=== PATIENT | female | born 1990 | race Caucasian/White ===

== ENCOUNTER 2016-10-21 16:18 | Emergency (ER) | payer BC ==
[2016-10-21 17:13] VITALS: BP 128/97
--- NOTE | 2016-10-21 17:58 | UC ---
Abdominal Pain Female HPI - HPI Summary HPI Summary: LLQ intermittent crampy abdominal pain for over a year. When I look at her visit history, it apears she has had LLQ pain for 10 years with numerous work= ups, but she says this is different. It seems to be related to eating. Will cramp and have terrible pain after meals, then it gradually dissipates. LLQ is always very tender. OB worked her up for ovarian and uterine pathology, says it' s not [employer]-related, suggested GI eval. No weight loss. No blood in stool. No FH GI disorders other than a MGF who has colon polyps. No vomiting. Good appetite. abd U/S within past month was normal - History of Current Complaint Chief Complaint: UCAbdominalPain Stated Complaint: SHARP LWR ABD PAIN-LEFT SIDE Time Seen by Provider: 10/21/16 17:35 Hx Obtained From: Patient Hx Last Menstrual Period: 08/29/16 Onset/Duration: Gradual Onset, Lasting Weeks Severity Initially: Severe Severity Currently: Mild Location: Discrete At: LLQ Radiates: Yes Radiates to: Flank Character: Aching, Colicy, Cramping, Sharp Aggravating Factor(s): Food Alleviating Factor(s): Position - hands and knees feels best when pain is severe Associated Signs and Symptoms: Positive: Constipation, Diarrhea - alternating constipation and diarrhea. Negative: Fever, Chest Pain - Risk Factors Ectopic Risk Factor: Negative Ovarian Torsion Risk Factor: Negative Allergies/Adverse Reactions: Allergies Allergy/AdvReac Type Severity Reaction Status Date / Time Cortisone Allergy Severe Difficulty Verified 10/21/16 17:12 Breathing Shellfish Allergy Allergy Severe Anaphylatic Verified 10/21/16 17:12 Shock Acetaminophen [From Tylenol] Allergy Intermediate Vomiting Verified 10/21/16 17: 12 Codeine Allergy Intermediate Vomiting Verified 10/21/16 17:12 Home Medications: Home Medications Yocasta 10/21/16 [History] PMH/Surg Hx/FS Hx/Imm Hx Endocrine History Of: Denies: Diabetes, Thyroid Disease Cardiovascular History Of: Denies: Cardiac Disorders, Hypertension, Pacemaker/ICD, Congestive Heart Failure Respiratory History Of: Reports: Asthma - ALBUTEROL INHAILER Denies: COPD GI/ History Of: Denies: Gastroesophageal Reflux, Ulcer, Renal Disease - INFECTIONS Neurological History Of: Denies: CVA, Dementia, Seizures Other History Of: Negative For: Anticoagulant Therapy - Surgical History Surgical History: Yes Surgery Procedure, Year, and Place: Right hip arthoplasty Aug 2015 [facility] - Family History Known Family History: Positive: None - reviewed & noncontributory, Diabetes, Renal Disease - Social History Occupation: Employed Full-time Lives: With Family Alcohol Use: Weekly Substance Use Type: None Smoking Status (MU): Never Smoked Tobacco Have You Smoked in the Last Year: No Household Exposure Type: Cigarettes - Immunization History Most Recent Influenza Vaccination: no given Most Recent Tetanus Shot: unknown Most Recent Pneumonia Vaccination: no given Review of Systems Constitutional: Negative Skin: Negative Eyes: Negative ENT: Negative Respiratory: Negative Cardiovascular: Negative Gastrointestinal: Abdominal Pain Genitourinary: Negative Motor: Negative Neurovascular: Negative Musculoskeletal: Negative Neurological: Negative Psychological: Negative All Other Systems Reviewed And Are Negative: Yes Physical Exam Triage Information Reviewed: Yes Appearance: Well-Appearing, No Pain Distress, Well-Nourished Vital Signs: Initial Vital Signs Temp 97.9 F 10/21/16 17:04 Pulse 72 10/21/16 17:04 Resp 17 10/21/16 17:04 BP 128/97 10/21/16 17:04 Pulse Ox 100 10/21/16 17:04 Vital Signs Reviewed: Yes Eye Exam: Normal Neck exam: Normal Respiratory Exam: Normal Respiratory: Positive: Lungs clear Cardiovascular Exam: Normal Abdomen Description: Positive: Soft, CVA Tenderness (L), Other: - marked pain on palpation over pelvic brim on left. Negative: Bruit, CVA Tenderness (R), Distended, Guarding, Hernia @, Hepatomegaly, McBurney's Point Tenderness, Peritoneal Signs, Pulsatile Mass, Splenomegaly Musculoskeletal Exam: Normal Neurological Exam: Normal Psychological Exam: Normal Skin Exam: Normal Abd Pain Female Course/Dx - Course Course Of Treatment: symptoms consistent with irritable bowel syndrome. Refer to GI - Differential Dx/Diagnosis Differential Diagnosis: Bowel Obstruction, Diverticulitis, Irritable Bowel Syndrome, Ovarian Cyst, Pelvic Inflammatory Disease Provider Diagnoses: irritable bowel syndrome Discharge - Discharge Plan Condition: Stable Disposition: HOME Prescriptions: Dicyclomine CAP* [Bentyl CAP*] 10 mg PO AC PRN #60 cap PRN Reason: abdominal pain Patient Education Materials: Irritable Bowel Syndrome (ED) Referrals: Jax Stacy MD [Medical Doctor] - Marion Brown NP [Primary Care Provider] - Additional Instructions: Call Dr. Stacy (GI) for an appointment. In the meantime, keep a symptom diary and try taking Bentyl. This medication is designed to stop smooth muscle spasm, which is usually behind the pain of irritable bowel syndrome. You may want to experiment with cutting certain things out of your diet to see if it helps you pain. Dairy is a common offender, as is gluten.
== END 2016-10-21 18:14 | disposition home or self-care (01) ==
LOC: UCEAST 16:18
DX: K58.9 Irritable bowel syndrome, unspecified (principal); Z88.8 Allergy status to other drugs, medicaments and biological substances
CPT/HCPCS: 99212; G0463

== ENCOUNTER 2017-01-16 05:10 | Emergency (ER) | payer BC ==
[2017-01-16 05:19] VITALS: BP 116/71
--- NOTE | 2017-01-16 07:17 | RAD ---
INDICATION: Left wrist injury. TECHNIQUE: 3 views of the left wrist were obtained. FINDINGS: The bones are in normal alignment. No fracture is seen. Joint spaces appear maintained. IMPRESSION: NO EVIDENCE FOR FRACTURE.
--- NOTE | 2017-01-16 07:18 | RAD ---
INDICATION: Left hand injury. TECHNIQUE: 2 views of the left hand were obtained. FINDINGS: The bones are in normal alignment. No fracture is seen. Joint spaces appear maintained. IMPRESSION: NO EVIDENCE FOR FRACTURE.
--- NOTE | 2017-01-16 07:19 | RAD ---
INDICATION: Left ankle injury. TECHNIQUE: 3 views of the left ankle were obtained. FINDINGS: The bones are in normal alignment. No fracture is seen. Joint spaces appear maintained. IMPRESSION: NO EVIDENCE FOR FRACTURE.
--- NOTE | 2017-01-16 07:21 | RAD ---
INDICATION: Left foot injury. TECHNIQUE: 3 views of the left foot were obtained. FINDINGS: The bones are in normal alignment. No fracture is seen. Joint spaces appear maintained. IMPRESSION: NO EVIDENCE FOR FRACTURE.
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
== END 2017-01-16 09:30 | disposition home or self-care (01) ==
LOC: ED 05:10
DX: S63.615A Unspecified sprain of left ring finger, initial encounter (principal); S63.613A Unspecified sprain of left middle finger, initial encounter; S93.402A Sprain of unspecified ligament of left ankle, initial encounter; S80.212A Abrasion, left knee, initial encounter; Z88.5 Allergy status to narcotic agent; J45.909 Unspecified asthma, uncomplicated; Y04.0XXA Assault by unarmed brawl or fight, initial encounter; X58.XXXA Exposure to other specified factors, initial encounter; Y92.9 Unspecified place or not applicable
CPT/HCPCS: 99281

== ENCOUNTER 2017-12-12 18:31 | Emergency (ER) | payer BC ==
--- OUTSIDE RECORDS SUMMARY | 2017-12-12 18:51 | XMS REPORT ---
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 Alexis Chan MD Primary Care Physician Unavailable Payers Type Date Identification Numbers Payment Provider Subscriber Commercial Policy Number: [id number] [facility] Chrisus Steffany Banks PayID: [id number] [address] [address] [place] [address] Problems Date Description Provider Status Onset: 11/25/2017 Allergy to seafood Yumi Trejo NP Active Onset: 11/25/2017 Allergic rhinitis due to pollen Yumi Trejo NP Active Onset: 11/25/2017 Allergic rhinitis Yumi Trejo NP Active Onset: 11/25/2017 Exercise-induced asthma Yumi Trejo NP Active Social History Description No Information Available Allergies, Adverse Reactions, Alerts Date Description Reaction Status Severity Comments 11/25/2017 Acetaminophen active 11/25/2017 Diphenhydramine active IV, too fast of a push causes pt to pass out 11/25/2017 Codeine active Medications Medication Date Status Form Strength Qnty SIG Indications Ordering Provider Zyrtec 11/25/ Active Tablets 10mg 30tabs one tablet J30.1 Y[facility] 2018 by mouth Neil, every day [employer]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 Vital Signs Date Vital Result Comment 12/09/2017 BP Systolic 118 mmHg BP Diastolic 62 mmHg Heart Rate 99 /min Body Temperature 95.4 F O2 % BldC Oximetry 99 % 11/25/2017 BP Systolic 110 mmHg BP Diastolic 68 mmHg Weight 129.00 lb Heart Rate 88 /min O2 % BldC Oximetry 98 % Results Description No Information Procedures Date CPT Code Description Status 11/25/2017 37041 Allergy Tests Percutaneous W/ Allergenic Extracts Completed Encounters Type Date Location Provider CPT E/M Dx Office Visit 11/25/2017 8:30[place] [address] Z91.013 J45.990 J30.89 J30.1 Z91.018 Plan of Care 11/25/2017 - Yumi Trejo NPZ91.013 Allergy to seafoodComments:I will test for allergy to shellfish, and patient will avoid at this time. Patient has epi pen.J45.990 Exercise induced bronchospasmComments:Stable without any symptoms, not using any inhalers.J30.89 Other allergic rhinitisComments:I will test S+E, will prescription Flonase and zyrtec for symptomatic allergic rhinitis.J30.1 Allergic rhinitis due to pollenNew Medication:Zyrtec Allergy 10 mgFlonase Allergy Relief 50 mcg/ActZ91.018 Allergy to other foods
--- OUTSIDE RECORDS SUMMARY | 2017-12-12 18:51 | XMS REPORT ---
:1990 External Reference #:[id number] Author Organization [facility] Address [address] [place] [address] Phone [phone] Care Team Providers Name Role Phone SANTIAGO Harrell III Care Team Information Maintenance Supervisor Electrical Unavailable Payers Type Date Identification Numbers Payment Provider Subscriber Commercial Policy Number: [id number] Gali GOMEZ Steffany French Group Name: BC/BS of [facility] [address] [address] PayID: [id number] BENNIE Card [id number] Advance Directives Type Date Description Status Comment Other Directive 05/26/2014 Health Care Proxy Current and Verified Problems Description No Information Family History Date Family Member(s) Problem(s) Comments Father Kidney Stones Mother Migraines Social History Type Date Description Comments Education Hightest level completed, 1 completed a couple year of college semesters at [employer] Marital Status Single Lives With Roommate Diet Average daily caloric intake is adequate Diet Adequate intake of fruits Diet Adequate intake of protein Diet Adequate intake of vegetables Sleep Reports difficulty falling asleep Sleep Typically sleeps 8 hours a night 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 [employer] Cigarette Use Never Smoked Cigarettes ETOH Use Occasionally consumes wine Recreational Drug Use Denies Drug Use Smoking Patient has never smoked Daily Caffeine Consumes on average 1 cup of coffee per day Enjoy Exercising Enjoys exercising Exercise Type/Frequency Running Exercise Type/Frequency occasional weights Currently Active Patient is currently sexually active Contraceptive Methods Current methods include ring (Nuva) Allergies, Adverse Reactions, Alerts Date Description Reaction Status Severity Comments 05/29/2014 Seafood Anaphylaxis active 05/29/2014 Acetaminophen Nausea and Vomiting active 05/29/2014 Codeine Nausea and Vomiting active 06/07/2017 Cortisone active 12/05/2017 Dust Mites active Medications Medication Date Status Form Strength Qnty SIG Indications Ordering Provider Azithromycin 12/12 Active Tablets 250mg 6tabs take 2 J18.9 tablets by [place] mouth one MD time then take one daily for 4 days Benzonatate 12/07 Active Capsules 100mg 45cap 1 tab by s mouth three [place] times a day , Albuterol HFA 12/05 Active 90mcg/Inh 2 puffs every 4 [place] hours as , needed Ventolin HFA 12/05 Active Aerosol 108(90Bas 8gm 1-2 puffs e) four times [place] mcg/Act a day as , needed Zyrtec Allergy 09/13 Active Capsules 10mg 30cap 1 cap once s daily for Darryl allergies III, [facility] Cefuroxime 09/04 Active Tablets 500mg 20tab one by Ilda Axetil s mouth twice Serena, a day M.D., R.D. Astepro 09/04 Active Solution 0.15% 30uni spray 2 ts sprays into [facility], each M.D., nostril one R.D. time daily Sertraline HCL 08/16 Active Tablets 25mg 30tab 1 by mouth F41.9 Javed s every day Darryl III, [employer] Buspirone HCL 08/16 Active Tablets 7.5mg 60tab take one F41.9 Javed s tablet by [place] mouth twice III, a day for [employer] anxiety Ibuprofen 03/23 Active Tablets 600mg 120ta take one M54.9 bs tablet by Stephanie, mouth 4 [employer] times daily with food as needed for pain Lidoderm 09/27 Active Patches 5% 30uni apply to 733.6 ts affected [facility] for 12 M.D. 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 12/05 Augmentin 08/30 Hx Tablets 875-125mg 14tab 1 tab by J01.90 [place]cepc[place] /2017 s mouth twice Shortle, - a day for 7 MALE IMPERSONATOR Sertraline HCL 07/19 Hx Tablets 50mg 30tab 1 by mouth F41.9 Javed s every day [place] - III, 08/16 [facility] Sertraline HCL 07/05 Hx Tablets 25mg 14tab 1 by mouth F41.9 Javed s every day Darryl - III, 07/19 [facility] Escitalopram 06/07 Hx Tablets 10mg 30tab 1 by mouth F41.9 Javed Oxalate s every day Darryl - III, 07/05 [facility] Protonix 06/[address] 20mg 30tab 1 by mouth Marion /2015 s every day Stephanie, - [facility] 05/08 Cyclobenzaprine 03/23 Hx Tablets 5mg 30tab 1-2 by M54.9 Marion HCL s mouth three Stephanie, - times a day [facility] 05/08 for spasm, may cause drowsiness Pataday 02/22 Hx Solution 0.2% 2.500 instill one H10.13 nt ml drop in [place]. [place], - each eye [facility] 05/08 Rhinocort Aqua 02/15 Hx Suspension 32mcg/Act 1unit 1 H10.44 Fede s intranasal [place] - puff daily , 05/08 Cetirizine HCL 02/05 Hx Tablets 10mg 30tab 1 by mouth H10.44 Fede s every day [place] - , 05/08 Loperamide HCL 10/29 Hx Tablets 2mg 30tab 1 tab by A09 Fede s mouth three [place] - times a day , 05/08 as needed Prednisone 01/17 Hx Tablets 20mg 10tab take 2 tabs 726.71 s by mouth Stephanie, - every day x [employer] 03/23 Hydrocodone-Acet 01/17 Hx Tablets 5-325mg 20twe 1 by mouth amino nty q4 - 6 Stephanie, - hours as [employer] 03/23 Idbenzonatate 10/01 Hx Capsules 200mg 30cap 1 cap po s tid prn Stephanie, - cough [employer] [facility] 03/23 Prednisone 09/27 Hx Tablets 20mg qs 2 po qd x 4 493.92 days, then Chan, - 1 po qd x 4 M.D. 01/17 days, 09/06 po qd x 2 days Amoxicillin/Clav 09/25 Hx Tablets 875-125mg 20tab 1 tablet 466.0 s twice a day Stephanie Potassium - x 10 days [employer] 10/03 Benzonatate 09/25 Hx Capsules 100mg 45cap 1 by mouth 466.0 s three times Stephanie, - a day as [facility] 10/01 cough Amoxicillin/Clav 05/29 Hx Tablets 875-125mg 20tab 1 tablet 382.9 Marion s twice a day Stephanie Potassium - x 10 days [employer] 10/03 Nuvaring 00 Hx Ring 0.12-0.01 3unit insert one Unknown /0000 5mg/24HR s ring into - the vagina, 05/08 monthly Albuterol HFA 00 Hx 90mcg/Inh 1unit 2 Unknown /0000 s inhalation - q4-6 hours 12/05 as needed shortness of breath, cough, wheeze Immunizations CPT Code Status Date Vaccine Lot # [id number] Given 05/20/2017 Influenza Virus Vaccine, Quadrivalent, 3 Yr > Quad, Preserv Free 10471 Given 02/06/2016 Pneumovax 23 (PPSV23) 65+ years or high risk 2 to [id number] 66 year old 29127 Given 12/30/2014 HPV Vaccine, Gardasil [id number] 73093 Given 05/25/2010 Menactra (meningococcal conjugate vaccine) 15380 Given 05/21/2008 HPV Vaccine, Gardasil 17794 Given 02/01/2008 HPV Vaccine, Gardasil 51941 Given 11/27/2007 Hepatitis A (Ped) 2 Dose Schedule 20833 Given 11/23/2006 Hepatitis A (Ped) 2 Dose Schedule 85385 Given 11/18/2005 Tdap (Adacel) 32064 Given 06/23/1997 MMR (Measles,Mumps,Rubella) 77242 Given 06/15/1997 Hep B Vaccine, Ped/Adol Dose 3 Dose (Engerix or Recombivax) 18294 Given 06/13/1997 DTaP (Daptacel) 40176 Given 06/13/1997 Opv (Poliovirus,Oral) 94720 Given 09/14/1996 Hep B Vaccine, Ped/Adol Dose 3 Dose (Engerix or Recombivax) 29631 Given 06/27/1996 Hep B Vaccine, Ped/Adol Dose 3 Dose (Engerix or Recombivax) 71009 Given 09/23/1993 Opv (Poliovirus,Oral) 63403 Given 09/23/1993 MMR (Measles,Mumps,Rubella) 96972 Given 09/23/1993 DTaP (Daptacel) 46866 Given 09/23/1993 Hib (Hemophilus Influenza B) (Acthib) 20756 Given 1992 DTaP (Daptacel) 06764 Given 1992 Hib (Hemophilus Influenza B) (Acthib) 82968 Given 1992 Hib (Hemophilus Influenza B) (Acthib) 26419 Given 1992 Opv (Poliovirus,Oral) 76641 Given 1992 DTaP (Daptacel) 92895 Given 1992 Opv (Poliovirus,Oral) 71281 Given 1992 DTaP (Daptacel) 79308 Given 1992 Hib (Hemophilus Influenza B) (Acthib) 02909 Given Unknown DTaP (Daptacel) 02540 Refused 08/26/2017 Influenza Virus Vaccine, Quadrivalent, 3 Yr > Quad, Preserv Free Vital Signs Date Vital Result Comment 12/12/2017 Weight 127.00 lb Weight in kg's 57.607 BP Systolic 116 mmHg BP Diastolic 72 mmHg Heart Rate 110 /min Body Temperature 99.7 F Respiratory Rate 20 /min O2 % BldC Oximetry 91 % 12/05/2017 Weight 127.00 lb Weight in kg's 57.607 BP Systolic 102 mmHg BP Diastolic 76 mmHg Heart Rate 84 /min Body Temperature 98.6 F Respiratory Rate 16 /min O2 % BldC Oximetry 96 % 11/09/2017 Weight 124.00 lb Weight in kg's 56.246 BP Systolic 140 mmHg BP Diastolic 82 mmHg Heart Rate 88 /min Body Temperature 97.3 F O2 % BldC Oximetry 97 % 11/07/2017 Weight 125.00 lb Weight in kg's 56.700 BP Systolic 92 mmHg BP Diastolic 64 mmHg Heart Rate 76 /min Body Temperature 97.4 F O2 % BldC Oximetry 99 % 09/13/2017 Weight 128.00 lb Weight in kg's 58.061 BP Systolic 100 mmHg BP Diastolic 60 mmHg Heart Rate 84 /min Body Temperature 97.0 F Respiratory Rate 16 /min O2 % BldC Oximetry 98 % 09/09/2017 Weight 128.00 lb Weight in kg's 58.061 BP Systolic 112 mmHg BP Diastolic 78 mmHg Heart Rate 84 /min Body Temperature 98.8 F Respiratory Rate 14 /min O2 % BldC Oximetry 98 % 08/30/2017 BP Systolic 98 mmHg BP Diastolic 68 mmHg Heart Rate 82 /min Body Temperature 98.3 F Respiratory Rate 14 /min O2 % BldC Oximetry 99 % 08/26/2017 Weight 125.00 lb Weight in kg's 56.700 BP Systolic 90 mmHg BP Diastolic 60 mmHg Heart Rate 88 /min Body Temperature 97.2 F Respiratory Rate 16 /min O2 % BldC Oximetry 99 % 08/16/2017 Weight 126.00 lb Weight in kg's 57.154 BP Systolic 100 mmHg BP Diastolic 68 mmHg Heart Rate 64 /min Body Temperature 97.2 F Respiratory Rate 14 /min Height 63 inches 5'3" BMI (Body Mass Index) 22.3 kg/m2 07/19/2017 Weight 124.00 lb Weight in kg's 56.246 BP Systolic 100 mmHg BP Diastolic 60 mmHg Heart Rate 60 /min Body Temperature 97.2 F Respiratory Rate 14 /min O2 % BldC Oximetry 99 % 07/05/2017 Weight 126.00 lb Weight in kg's 57.154 BP Systolic 102 mmHg BP Diastolic 60 mmHg Heart Rate 72 /min Body Temperature 97.5 F 06/29/2016 Weight 127.00 lb Weight in kg's 57.607 BP Systolic 110 mmHg BP Diastolic 70 mmHg Heart Rate 72 /min Body Temperature 98.7 F 06/21/2016 Weight 125.00 lb Weight in kg's 56.700 BP Systolic 116 mmHg BP Diastolic 74 mmHg Heart Rate 84 /min Body Temperature 99.2 F Respiratory Rate 14 /min 03/23/2016 Weight 120.00 lb Weight in kg's 54.432 BP Systolic 118 mmHg BP Diastolic 82 mmHg Heart Rate 68 /min Body Temperature 98.9 F Height 62.5 inches 5'2.50" BMI (Body Mass Index) 21.6 kg/m2 02/23/2016 Weight 122.00 lb Weight in kg's 55.339 BP Systolic 109 mmHg BP Diastolic 78 mmHg Heart Rate 68 /min Body Temperature 99.9 F 02/16/2016 Weight 121.00 lb Weight in kg's 54.886 BP Systolic 110 mmHg BP Diastolic 70 mmHg Heart Rate 84 /min Body Temperature 98.8 F O2 % BldC Oximetry 99 % 02/06/2016 Weight 122.00 lb Weight in kg's 55.339 BP Systolic 98 mmHg BP Diastolic 78 mmHg Heart Rate 72 /min Body Temperature 98.4 F 10/29/2015 Weight 118.00 lb Weight in kg's 53.525 BP Systolic 102 mmHg BP Diastolic 68 mmHg Heart Rate 84 /min Body Temperature 99.1 F Respiratory Rate 18 /min 01/17/2015 Weight 109.00 lb Weight in kg's 49.442 BP Systolic 100 mmHg BP Diastolic 60 mmHg Heart Rate 80 /min 10/03/2014 Weight 109.00 lb Weight in kg's 49.442 BP Systolic 106 mmHg BP Diastolic 70 mmHg Heart Rate 81 /min Body Temperature 98.2 F O2 % BldC Oximetry 96 % 09/27/2014 Weight 108.00 lb Weight in kg's 48.989 BP Systolic 92 mmHg BP Diastolic 58 mmHg Heart Rate 89 /min Body Temperature 98.1 F O2 % BldC Oximetry 94 % 09/25/2014 Weight 108.00 lb Weight in kg's 48.989 BP Systolic 90 mmHg BP Diastolic 62 mmHg Heart Rate 108 /min Body Temperature 98.1 F O2 % BldC Oximetry 99 % 07/29/2014 Weight 109.00 lb Weight in kg's 49.442 BP Systolic 98 mmHg BP Diastolic 70 mmHg Heart Rate 80 /min Body Temperature 98.7 F 05/29/2014 Weight 107.00 lb Weight in kg's 48.535 BP Systolic 90 mmHg BP Diastolic 70 mmHg Heart Rate 93 /min Body Temperature 97.7 F O2 % BldC Oximetry 97 % Results Test Date Test Result H/L Range Note Laboratory test 11/07/2017 Wound Culture/Sensi SEE RESULT BELOW 1 finding Laboratory test 06/29/2016 Urine Culture And SEE RESULT BELOW 2 finding Sensitivities Urinalysis Profile 06/29/2016 Urine Color Yellow Urine Appearance Clear Urine Specific [place] 1.023 1.010-1.030 Urine pH 6.0 5-9 Urine Urobilinogen Negative Negative Urine Ketones Negative Negative Urine Protein Negative Negative Urine Leukocytes Trace Negative Urine Blood Negative Negative Urine Nitrite Negative Negative Urine Bilirubin Negative Negative Urine Glucose Negative Negative Urine White Blood Cell Trace(0-5/hpf) Absent Urine Red Blood Cell Trace(0-2/hpf) Absent Urine Bacteria Absent Absent Urine Squamous Epithelial Cell Present Absent Laboratory test finding 06/29/2016 HCG DIP Test neg Neg Urine DIP 06/29/2016 Leukocytes ++ Neg Urine Nitrites NEG Neg Urobilinogen NORM Norm Total Protein, Urine NEG Neg Urine pH 5 5-6 Urine Blood NEG Neg Specific [place] 1.02 1.01-1.02 Urine Ketones NEG Neg Urine Bilirubin NEG Neg Urine Glucose NORM Norm CBC Auto Diff 06/14/2016 White Blood Count 6.1 10^3/uL 3.5-10.8 Red Blood Count 4.26 10^6/uL 4.0-5.4 Hemoglobin 12.4 g/dL 12.0-16.0 Hematocrit 37 % 35-47 Mean Corpuscular Volume 88 fL 80-97 Mean Corpuscular Hemoglobin 29 pg 27-31 Mean Corpuscular HGB Conc 33 g/dL 31-36 Red Cell Distribution Width 12 % 10.5-15 Platelet Count 215 10^3/uL 150-450 Mean Platelet Volume 8 um3 7.4-10.4 Abs Neutrophils 2.4 10^3/uL 1.5-7.7 Abs Lymphocytes 2.9 10^3/uL 1.0-4.8 Abs Monocytes 0.4 10^3/uL 0-0.8 Abs Eosinophils 0.2 10^3/uL 0-0.6 Abs Basophils 0 10^3/uL 0-0.2 Abs Nucleated RBC 0 10^3/uL Granulocyte % 40.2 % 38-83 Lymphocyte % 48.3 % High 25-47 Monocyte % 6.9 % 1-9 Eosinophil % 3.8 % 0-6 Basophil % 0.8 % 0-2 Nucleated Red Blood Cells % 0 Urinalysis Profile 06/14/2016 Urine Color Yellow Urine Appearance Cloudy Urine Specific [place] 1.019 1.010-1.030 Urine pH 6.0 5-9 Urine Urobilinogen Negative Negative Urine Ketones Negative Negative Urine Protein Negative Negative Urine Leukocytes 3+ Negative Urine Blood 2+ Negative Urine Nitrite Negative Negative Urine Bilirubin Negative Negative Urine Glucose Negative Negative Urine White Blood Cell 2+(11-20/hpf) Absent Urine Red Blood Cell 1+(3-5/hpf) Absent Urine Bacteria 1+ Absent Urine Squamous Epithelial Cell Present Absent Urine Amorphous Crystals Present Absent Laboratory test finding 06/14/2016 Magnesium 2.1 mg/dL 1.9-2.7 Lipase 27 U/L 11.0-82.0 C Reactive Protein 5.79 mg/L High < 5.00 3 HCG < 0.60 mIU/mL 4 TSH (Thyroid Stimulating Horm) 2.08 mcIU/mL 0.34-5.60 Free T3 3.90 pg/mL 2.5-3.9 Free T4 0.68 ng/dL 0.61-1.12 Urine Culture SEE RESULT BELOW 5 Laboratory test 03/10/2015 Gardnerella/Yeast: Vaginal SEE RESULT BELOW 6 finding Dna GC/Chlamydia 03/10/2015 Chlamydia trachomatis Rna Negative Negative Amplified Rna Neisseria gonorrhoeae (GC) Rna Negative Negative 7 Laboratory test finding 03/10/2015 Trichomonas vaginalis Rna Negative Negative 8 Urinalysis Profile 03/10/2015 Urine Color Straw Urine Appearance Clear Urine Specific [place] 1.009 Low 1.010-1.030 Urine pH 5.0 5-9 Urine Urobilinogen Negative Negative Urine Ketones Trace Negative Urine Protein Negative Negative Urine Leukocytes Negative Negative Urine Blood Negative Negative Urine Nitrite Negative Negative Urine Bilirubin Negative Negative Urine Glucose Negative Negative CBC Auto Diff 03/10/2015 White Blood Count 9.3 10^3/uL 4.8-10.8 Red Blood Count 4.44 10^6/uL 4.0-5.4 Hemoglobin 13.5 g/dL 12.0-16.0 Hematocrit 41 % 35-47 Mean Corpuscular Volume 92 fL 80-97 Mean Corpuscular Hemoglobin 30 pg 27-31 Mean Corpuscular HGB Conc 33 g/dL 31-36 Red Cell Distribution Width 12 % 10.5-15 Platelet Count 224 10^3/uL 150-450 Mean Platelet Volume 9 um3 7.4-10.4 Abs Neutrophils 5.1 10^3/uL 1.5-7.7 Abs Lymphocytes 3.5 10^3/uL 1.0-4.8 Abs Monocytes 0.5 10^3/uL 0-0.8 Abs Eosinophils 0.2 10^3/uL 0-0.6 Abs Basophils 0.1 10^3/uL 0-0.2 Abs Nucleated RBC 0 10^3/uL Granulocyte % 54.6 % 38-83 Lymphocyte % 37.3 % 25-47 Monocyte % 5.3 % 1-9 Eosinophil % 1.9 % 0-6 Basophil % 0.9 % 0-2 Nucleated Red Blood Cells % 0 Inr/Protime 03/10/2015 Inr 0.91 0.78-1.07 Comp Metabolic Panel 03/10/2015 Sodium 136 mmol/L 133-145 Potassium 3.5 mmol/L 3.5-5.0 Chloride 104 mmol/L 101-111 Co2 Carbon Dioxide 24 mmol/L 22-32 Anion Gap 8 mmol/L 2-11 Glucose 77 mg/dL 70-100 Blood Urea Nitrogen 10 mg/dL 6-24 Creatinine 0.72 mg/dL 0.51-0.95 BUN/Creatinine Ratio 13.9 8-20 Calcium 9.8 mg/dL 8.6-10.3 Total Protein 7.7 g/dL 6.4-8.9 Albumin 4.7 g/dL 3.2-5.2 Globulin 3.0 g/dL 2-4 Albumin/Globulin Ratio 1.6 1-3 Total Bilirubin 0.40 mg/dL 0.2-1.0 Alkaline Phosphatase 46 U/L 34-104 Alt 11 U/L 7-52 Ast 16 U/L 13-39 Egfr Non- 101.3 >60 Egfr 130.3 >60 9 Laboratory test finding 03/10/2015 Lipase 23 U/L 11.0-82.0 C Reactive Protein 4.24 mg/L < 5.00 10 Serum HCG Qualitative Negative Negative Laboratory test finding 03/10/2015 Lactic Acid 0.8 mmol/L 0.5-2.2 Blood Culture SEE RESULT BELOW 11 CBC Auto Diff 12/02/2014 White Blood Count 9.2 10^3/uL 4.8-10.8 Red Blood Count 4.23 10^6/uL 4.0-5.4 Hemoglobin 13.1 g/dL 12.0-16.0 Hematocrit 38 % 35-47 Mean Corpuscular Volume 91 fL 80-97 Mean Corpuscular Hemoglobin 31 pg 27-31 Mean Corpuscular HGB Conc 34 g/dL 31-36 Red Cell Distribution Width 13 % 10.5-15 Platelet Count 278 10^3/uL 150-450 Mean Platelet Volume 8 um3 7.4-10.4 Abs Neutrophils 3.8 10^3/uL 1.5-7.7 Abs Lymphocytes 3.5 10^3/uL 1.0-4.8 Abs Monocytes 0.6 10^3/uL 0-0.8 Abs Eosinophils 1.2 10^3/uL High 0-0.6 Abs Basophils 0.1 10^3/uL 0-0.2 Abs Nucleated RBC 0 10^3/uL Granulocyte % 41.2 % 38-83 Lymphocyte % 38.6 % 25-47 Monocyte % 6.2 % 1-9 Eosinophil % 12.8 % High 0-6 Basophil % 1.2 % 0-2 Nucleated Red Blood Cells % 0 Basic Metabolic Panel 12/02/2014 Sodium 135 mmol/L 133-145 Potassium 3.5 mmol/L 3.5-5.0 Chloride 107 mmol/L 101-111 Co2 Carbon Dioxide 23 mmol/L 22-32 Anion Gap 5 mmol/L 2-11 Glucose 92 mg/dL 70-100 Blood Urea Nitrogen 10 mg/dL 6-24 Creatinine 0.67 mg/dL 0.51-0.95 BUN/Creatinine Ratio 14.9 8-20 Calcium 9.4 mg/dL 8.6-10.3 Egfr Non- 110.1 >60 Egfr 141.5 >60 12 Laboratory test finding 12/02/2014 Serum Negative Negative 13 CBC Auto Diff 11/05/2014 White Blood Count 7.6 10^3/uL 4.8-10.8 Red Blood Count 4.05 10^6/uL 4.0-5.4 Hemoglobin 12.2 g/dL 12.0-16.0 Hematocrit 37 % 35-47 Mean Corpuscular Volume 91 fL 80-97 Mean Corpuscular Hemoglobin 30 pg 27-31 Mean Corpuscular HGB Conc 33 g/dL 31-36 Red Cell Distribution Width 13 % 10.5-15 Platelet Count 236 10^3/uL 150-450 Mean Platelet Volume 9 um3 7.4-10.4 Abs Neutrophils 2.6 10^3/uL 1.5-7.7 Abs Lymphocytes 4.2 10^3/uL 1.0-4.8 Abs Monocytes 0.5 10^3/uL 0-0.8 Abs Eosinophils 0.3 10^3/uL 0-0.6 Abs Basophils 0.1 10^3/uL 0-0.2 Abs Nucleated RBC 0 10^3/uL Granulocyte % 34.3 % Low 38-83 Lymphocyte % 54.6 % High 25-47 Monocyte % 6.4 % 1-9 Eosinophil % 3.8 % 0-6 Basophil % 0.9 % 0-2 Nucleated Red Blood Cells % 0.1 Laboratory test finding 11/05/2014 Serum Negative Negative 14 D Dimer Quantitative < 200 ng/mL Less Than 230 15 Comp Metabolic Panel 11/05/2014 Sodium 137 mmol/L 133-145 Potassium 2.9 mmol/L Low 3.5-5.0 Chloride 103 mmol/L 101-111 Co2 Carbon Dioxide 25 mmol/L 22-32 Anion Gap 9 mmol/L 2-11 Glucose 165 mg/dL High 70-100 Blood Urea Nitrogen 9 mg/dL 6-24 Creatinine 0.85 mg/dL 0.51-0.95 BUN/Creatinine Ratio 10.6 8-20 Calcium 9.0 mg/dL 8.6-10.3 Total Protein 6.8 g/dL 6.4-8.9 Albumin 4.2 g/dL 3.2-5.2 Globulin 2.6 g/dL 2-4 Albumin/Globulin Ratio 1.6 1-3 Total Bilirubin 0.30 mg/dL 0.2-1.0 Alkaline Phosphatase 47 U/L 34-104 Alt 10 U/L 7-52 Ast 15 U/L 13-39 Egfr Non- 83.6 >60 Egfr 107.6 >60 16 Laboratory test 11/05/2014 Lipase 21 U/L 11.0-82.0 finding Laboratory test 10/03/2014 D Dimer Quantitative < 200 Less Than 230 17 finding ng/mL Comp Metabolic Panel 10/03/2014 Sodium 139 mmol/L 133-145 Potassium 3.5 mmol/L 3.5-5.0 Chloride 103 mmol/L 101-111 Co2 Carbon Dioxide 28 mmol/L 22-32 Anion Gap 8 mmol/L 2-11 Glucose 84 mg/dL 70-100 Blood Urea Nitrogen 11 mg/dL 6-24 Creatinine 0.68 mg/dL 0.51-0.95 BUN/Creatinine Ratio 16.2 8-20 Calcium 9.3 mg/dL 8.6-10.3 Total Protein 6.9 g/dL 6.4-8.9 Albumin 4.2 g/dL 3.2-5.2 Globulin 2.7 g/dL 2-4 Albumin/Globulin Ratio 1.6 1-3 Total Bilirubin 0.20 mg/dL 0.2-1.0 Alkaline Phosphatase 49 U/L 34-104 Alt 12 U/L 7-52 Ast 12 U/L Low 13-39 Egfr Non- 108.2 >60 Egfr 139.1 >60 18 Laboratory test finding 10/03/2014 Troponin I 0.00 ng/mL <0.03 19 C Reactive Protein < 1.00 mg/L < 5.00 20 Serum Negative Negative 21 Creatine Kinase 32 U/L 10-223 CKMB 10/03/2014 CKMB ng/mL 1.0 ng/mL 0.6-6.3 Laboratory test finding 10/03/2014 Erythrocyte Sed Rate 12 mm/Hr 0-14 Manual Differential 10/03/2014 Neutrophil % 40 % 38-83 Lymphocytes % 48 % High 25-47 Monocytes % 4 % 0-13 Eosinophils % 2 % 0-6 Reactive Lymph % 6 % 0-6 RBC Morphology Normal Normal CBC Auto Diff 10/03/2014 White Blood Count 8.4 10^3/uL 4.8-10.8 Red Blood Count 4.44 10^6/uL 4.0-5.4 Hemoglobin 13.5 g/dL 12.0-16.0 Hematocrit 40 % 35-47 Mean Corpuscular Volume 91 fL 80-97 Mean Corpuscular Hemoglobin 30 pg 27-31 Mean Corpuscular HGB Conc 33 g/dL 31-36 Red Cell Distribution Width 12 % 10.5-15 Platelet Count 242 10^3/uL 150-450 Mean Platelet Volume 8 um3 7.4-10.4 Abs Neutrophils 3.3 10^3/uL 1.5-7.7 Abs Lymphocytes 4.2 10^3/uL 1.0-4.8 Abs Monocytes 0.6 10^3/uL 0-0.8 Abs Eosinophils 0.2 10^3/uL 0-0.6 Abs Basophils 0.1 10^3/uL 0-0.2 Abs Nucleated RBC 0 10^3/uL Granulocyte % 39.4 % 38-83 Lymphocyte % 50.3 % High 25-47 Monocyte % 7.1 % 1-9 Eosinophil % 2.6 % 0-6 Basophil % 0.6 % 0-2 Nucleated Red Blood Cells % 0 Laboratory test finding 11/10/2013 C Reactive Protein < 1.00 mg/L &lt ; 5.00 22 Comp Metabolic Panel 11/10/2013 Sodium 140 mmol/L 133-145 Potassium 4.4 mmol/L 3.7-5.6 Chloride 111 mmol/L 101-111 Co2 Carbon Dioxide 22 mmol/L 22-32 Anion Gap 7 mmol/L 2-11 Glucose 164 mg/dL High 70-100 Blood Urea Nitrogen 12 mg/dL 6-24 Creatinine 0.67 mg/dL 0.51-0.95 BUN/Creatinine Ratio 17.9 8-20 Calcium 8.4 mg/dL Low 8.6-10.3 Total Protein 6.1 g/dL Low 6.4-8.9 Albumin 3.8 g/dL 3.2-5.2 Globulin 2.3 g/dL 2-4 Albumin/Globulin Ratio 1.7 1-3 Total Bilirubin 0.20 mg/dL 0.2-1.0 Alkaline Phosphatase 43 U/L 34-104 Alt 9 U/L 7-52 Ast 11 U/L Low 13-39 Egfr Non- 111.1 >60 Egfr 142.9 >60 23 CBC Auto Diff 11/10/2013 White Blood Count 12.0 10^3/uL High 4.8-10.8 Red Blood Count 3.58 10^6/uL Low 4.0-5.4 Hemoglobin 10.7 g/dL Low 12.0-16.0 Hematocrit 32 % Low 35-47 Mean Corpuscular Volume 91 fL 80-97 Mean Corpuscular Hemoglobin 30 pg 27-31 Mean Corpuscular HGB Conc 33 g/dL 31-36 Red Cell Distribution Width 13 % 10.5-15 Platelet Count 210 10^3/uL 150-450 Mean Platelet Volume 9 um3 7.4-10.4 Abs Neutrophils 10.6 10^3/uL High 1.5-7.7 Abs Lymphocytes 1.0 10^3/uL 1.0-4.8 Abs Monocytes 0.3 10^3/uL 0-0.8 Abs Eosinophils 0 10^3/uL 0-0.6 Abs Basophils 0 10^3/uL 0-0.2 Abs Nucleated RBC 0 10^3/uL Granulocyte % 88.7 % High 38-83 Lymphocyte % 8.8 % Low 25-47 Monocyte % 2.4 % 1-9 Eosinophil % 0 % 0-6 Basophil % 0.1 % 0-2 Nucleated Red Blood Cells % 0 CBC Auto Diff 11/09/2013 White Blood Count 16.0 10^3/uL High 4.8-10.8 Red Blood Count 3.80 10^6/uL Low 4.0-5.4 Hemoglobin 11.9 g/dL Low 12.0-16.0 Hematocrit 34 % Low 35-47 Mean Corpuscular Volume 89 fL 80-97 Mean Corpuscular Hemoglobin 31 pg 27-31 Mean Corpuscular HGB Conc 35 g/dL 31-36 Red Cell Distribution Width 13 % 10.5-15 Platelet Count 232 10^3/uL 150-450 Mean Platelet Volume 9 um3 7.4-10.4 Abs Neutrophils 12.0 10^3/uL High 1.5-7.7 Abs Lymphocytes 3.0 10^3/uL 1.0-4.8 Abs Monocytes 1.0 10^3/uL High 0-0.8 Abs Eosinophils 0 10^3/uL 0-0.6 Abs Basophils 0 10^3/uL 0-0.2 Abs Nucleated RBC 0.01 10^3/uL Granulocyte % 75.0 % 38-83 Lymphocyte % 18.5 % Low 25-47 Monocyte % 6.1 % 1-9 Eosinophil % 0.1 % 0-6 Basophil % 0.3 % 0-2 Nucleated Red Blood Cells % 0 Laboratory test 11/09/2013 D Dimer Quantitative < 200 ng/mL Less Than 230 24 finding Lactic Acid 1.8 mmol/L 0.5-2.2 Serum Negative Negative 25 B Type Natriuretic Peptide 51 pg/mL 26 Comp Metabolic Panel 11/09/2013 Sodium 141 mmol/L 133-145 Potassium 3.7 mmol/L 3.7-5.6 Chloride 110 mmol/L 101-111 Co2 Carbon Dioxide 23 mmol/L 22-32 Anion Gap 8 mmol/L 2-11 Glucose 108 mg/dL High 70-100 Blood Urea Nitrogen 11 mg/dL 6-24 Creatinine 0.78 mg/dL 0.51-0.95 BUN/Creatinine Ratio 14.1 8-20 Calcium 9.0 mg/dL 8.6-10.3 Total Protein 6.6 g/dL 6.4-8.9 Albumin 4.1 g/dL 3.2-5.2 Globulin 2.5 g/dL 2-4 Albumin/Globulin Ratio 1.6 1-3 Total Bilirubin 0.30 mg/dL 0.2-1.0 Alkaline Phosphatase 48 U/L 34-104 Alt 9 U/L 7-52 Ast 12 U/L Low 13-39 Egfr Non- 93.2 >60 Egfr 119.9 >60 27 Laboratory test finding 11/09/2013 Creatine Kinase 76 U/L 10-223 CKMB 11/09/2013 CKMB ng/mL 1.2 ng/mL 0.6-6.3 Laboratory test finding 11/09/2013 Troponin I 0.00 ng/mL <0.03 28 TSH (Thyroid Stimulating Horm) 1.34 IU/mL 0.34-5.60 1 SEE RESULT BELOW Name: WILFRED FRENCH : [address]: Concepción Duval NP Acct: [id number] Unit: [id number] AGE: 27 Location: [facility] Re11/07/17 SEX: F Status: REG REF SPEC: [id number] DEB: 11/07/[address] [facility] [address]: Concepción Duval MALE IMPERSONATOR REQ: [id number] RECD: 11/07/17 STATUS: COMP _ SOURCE: TOE SPDESC: ORDERED: Culture Stain COMMENTS: Submitted to [facility] via [employer] system by [id number] at 1351 on 11/08/17. Verbal STREP A S.A. to JACKIE Brown [phone] by [id number] at 1203 on 11/08/17. Results read back accurately. [id number] Specimen Description Left great toe Procedure Result Reported Site Wound/Misc Gram Stain Final 11/08/17- 1054 ML 3+ Epithelial Cells 1+ Neutrophils 4+ Gram Positive Cocci Wound/Misc Culture Final 11/10/17- 0920 ML Organism 1 STREP PYOGENES (GRP A) Quantity 3+ Organism 2 STAPHYLOCOCCUS AUREUS Quantity 2+ 1. STREP PYOGENES (GRP A) M.I.C. RX --------- ------ Chloramphenicol 4 S Ampicillin <=0.06 S Penicillin <=0.03 S Cefepime <=0.25 S CONTINUED ON NEXT PAGE DEPARTMENT OF PATHOLOGY, [address] [place] [address] Shai Pedraza M.D. Director [facility] # [id number] Patient: WILFRED FRENCH [id number] (Continued) Specimen: [id number] Collected: 11/07/17 Received: 11/07/17 (Continued) Procedure Result Reported Site Wound/Misc Culture Final (continued) 11/10/17- 919 1. STREP PYOGENES (GRP A) (continued) M.I.C. RX --------- ------ * Cefotaxime <=0.25 S Ceftriaxone <=0.25 S Levofloxacin 0.5 S Azithromycin >2 R Clindamycin >0.5 R Erythromycin >0.5 R Tetracycline >4 R Vancomycin 0.5 S 2. STAPHYLOCOCCUS AUREUS M.I.C. RX --------- ------ Penicillin >=0.5 R Clindamycin R This isolate is presumed to be resistant based on detection of inducible Clindamycin resistance. Clindamycin may still be effective in some patients. Erythromycin R Gentamicin <=0.5 S Linezolid 2 S Nitrofurantoin <=16 S Oxacillin <=0.25 S * Quinupristin/Dalfopristin <=0.25 S Rifampin <=0.5 S Tetracycline <=1 S Doxycycline - Deduced S * Minocycline - Deduced S Trimethoprim/Sulfamethoxazole <=10 S Vancomycin 1 S Imipenem-Deduced S * Ampicillin/Sulbactam-Deduced S Cefazolin-Deduced S CONTINUED ON NEXT PAGE DEPARTMENT OF PATHOLOGY, [address] [place] [address] Shai Pedraza M.D. Director [facility] # [id number] Patient: WILFRED FRENCH [id number] (Continued) Specimen: [id number] Collected: 11/07/17 Received: 11/07/17 (Continued) Procedure Result Reported Site Wound/Misc Culture Final (continued) * These antibiotics are not available in the [facility] Formulary Contact the Microbiology Department for any additional antibiotic reporting. * ML - Main Lab . END OF REPORT DEPARTMENT OF PATHOLOGY, [address] [place] [id number] Shai Pedraza M.D. Director [facility] # [id number] 2 SEE RESULT BELOW Name: WILFRED FRENCH : [address]: Javed Andrews III MALE IMPERSONATOR Acct: [id number] Unit: [id number] AGE: 26 Location: [facility] Re06/29/16 SEX: F Status: REG REF SPEC: [id number] DEB: 06/29/[address]: Javed Andrews III MALE IMPERSONATOR REQ: [id number] RECD: 06/29/16 STATUS: COMP _ SOURCE: URINE SPDESC: ORDERED: Urine Culture COMMENTS: [id number] Procedure Result Reported Site Urine Culture Final 06/30/16- 1606 ML No Growth (<1,000 CFU/mL) * ML - MAIN LAB ([facility]) . END OF REPORT * ML=Testing performed at Main Lab DEPARTMENT OF PATHOLOGY, [address] [place] [address] Shai Pedraza M.D. Director [facility] # [id number] 3 Acute inflammation: >10.00 4 <5.0 Negative 5.0 - 25.0 Indeterminate (Repeat testing recommended after 72 hours) >25.0 Positive Perimenopausal women can display HCG levels of up to 20 mIU/mL 5 SEE RESULT BELOW Name: WILFRED FRENCH : [address]: Ely Coronado MD Acct: [id number] Unit: [id number] AGE: 25 Location: ED Re06/14/16 SEX: F Status: DEP ER SPEC: [id number] DEB: 06/14/[address]: Ely Coronado MD REQ: [id number] RECD: 06/14/16 STATUS: SAMRA NINO DR: Marion Sandhu MALE IMPERSONATOR _ SOURCE: URINE SPDESC: ORDERED: Urine Culture Procedure Result Reported Site Urine Culture Final 06/16/16815 ML No growth of clinically significant organisms * ML - MAIN LAB ([facility]) . END OF REPORT * ML=Testing performed at Main Lab DEPARTMENT OF PATHOLOGY, [address] [place] [address] Shai Pedraza M.D. Director [facility] # [id number] 6 SEE RESULT BELOW Name: WILFRED FRENCH : [address]: Dylon Reyes MD Acct: [id number] Unit: [id number] AGE: 24 Location: ED Re03/10/15 SEX: F Status: DEP ER SPEC: [id number] DEB: 03/10/[address]: Shilpi ULRICH REQ: [id number] RECD: 03/10/15 STATUS: SAMRA NINO DR: Dylon Sandhu MALE IMPERSONATOR _ SOURCE: VAGINAL SPDESC: ORDERED: JarrettYeast DNA Procedure Result Verified Site Gardnerella/Yeast: Vaginal DNA Final 03/11/15- 1111 ML Organism 1 POSITIVE GARDNERELLA Organism 2 Negative Lydia The presence of G. vaginalis, although suggestive, is not diagnostic for bacterial vaginosis. Results should be interpreted in conjuction with other clinical and laboratory data available. Women with vaginal discharge should be evaluated for risk factors of cervicitis and pelvic inflammatory disease, toxic shock syndrome (S.aureus), and if present, evaluated for organisms not included in this assay such as N. gonorrhoeae, C. trachomatis, Mobiluncus, Mycoplasma and/or Prevotella. Mixed infections may occur. The performance of this test on patient specimens collected during or immediately after antimicrobial therapy is unknown. The presence or absence of Lydia species, or G. vaginalis cannot be used as a test for therapeutic success or failure. * ML - MAIN LAB ([facility]) . END OF REPORT * ML=Testing performed at Main Lab DEPARTMENT OF PATHOLOGY, [address] [place] [address] Shai Pedraza M.D. Director [facility] # [id number] 7 Female urine specimens have been self-validated by [facility] and have been granted conditional assay approval by [facility]. 8 [facility] Specimen Source: cervix GC/Chlamydia Source?: Endocervical Trichomonas Source: Endocervical 9 Because ethnic data is not always readily available, this report includes an eGFR for both -Americans and non- Americans. The National Kidney Disease Education Program (NKDEP) does not endorse the use of the MDRD equation for patients that are not between the ages of 18 and 70, are , have extremes of body size, muscle mass, or nutritional status, or are non- or non-. According to the National Kidney Foundation, irrespective of diagnosis, the stage of the disease is based on the level of kidney function: Stage Description GFR(mL/min/1.73 m(2)) 1 Kidney damage with normal or decreased GFR 90 2 Kidney damage with mild decrease in GFR 60-89 3 Moderate decrease in GFR 30-59 4 Severe decrease in GFR 15-29 5 Kidney failure <15 (or dialysis) 10 Acute inflammation: >10.00 11 SEE RESULT BELOW Name: WILFRED FRENCH : [address]: Dylon Reyes MD Acct: [id number] Unit: [id number] AGE: 24 Location: ED Re03/10/15 SEX: F Status: DEP ER SPEC: [id number] DEB: 03/10/[address]: Shilpi ULRICH REQ: [id number] RECD: 03/10/15 STATUS: SAMRA [facility] DR: Dylon Sandhu MALE IMPERSONATOR _ SOURCE: BLOOD,VENO SPDES: ORDERED: Blood Cult Procedure Result Verified Site Aerobic Culture Bottle Final 03/15/15- 1718 ML No Growth Day 5 Anaerobic Culture Bottle Final 03/15/15- 1718 ML No Growth Day 5 * ML - MAIN LAB ([facility]) . END OF REPORT * ML=Testing performed at Main Lab DEPARTMENT OF PATHOLOGY, [address] [place] [address] Shai Pedraza M.D. Director [facility] # [id number] 12 Because ethnic data is not always readily available, this report includes an eGFR for both -Americans and non- Americans. The National Kidney Disease Education Program (NKDEP) does not endorse the use of the MDRD equation for patients that are not between the ages of 18 and 70, are , have extremes of body size, muscle mass, or nutritional status, or are non- or non-. According to the National Kidney Foundation, irrespective of diagnosis, the stage of the disease is based on the level of kidney function: Stage Description GFR(mL/min/1.73 m(2)) 1 Kidney damage with normal or decreased GFR 90 2 Kidney damage with mild decrease in GFR 60-89 3 Moderate decrease in GFR 30-59 4 Severe decrease in GFR 15-29 5 Kidney failure <15 (or dialysis) 13 This test detects intact HCG only and is indicated for the early detection of . 14 This test detects intact HCG only and is indicated for the early detection of . 15 Please note: The following may produce a false positive D Dimer test: - Rheumatoid factor greater than 60 IU/ml - Plasma hemoglobin greater than 0.05 gm/dl - Bilirubin greater than 50 mg/dl - Lipids greater than 1000 mg/dl - FDP greater than 20 ug/ml 16 Because ethnic data is not always readily available, this report includes an eGFR for both -Americans and non- Americans. The National Kidney Disease Education Program (NKDEP) does not endorse the use of the MDRD equation for patients that are not between the ages of 18 and 70, are , have extremes of body size, muscle mass, or nutritional status, or are non- or non-. According to the National Kidney Foundation, irrespective of diagnosis, the stage of the disease is based on the level of kidney function: Stage Description GFR(mL/min/1.73 m(2)) 1 Kidney damage with normal or decreased GFR 90 2 Kidney damage with mild decrease in GFR 60-89 3 Moderate decrease in GFR 30-59 4 Severe decrease in GFR 15-29 5 Kidney failure <15 (or dialysis) 17 Please note: The following may produce a false positive D Dimer test: - Rheumatoid factor greater than 60 IU/ml - Plasma hemoglobin greater than 0.05 gm/dl - Bilirubin greater than 50 mg/dl - Lipids greater than 1000 mg/dl - FDP greater than 20 ug/ml 18 Because ethnic data is not always readily available, this report includes an eGFR for both -Americans and non- Americans. The National Kidney Disease Education Program (NKDEP) does not endorse the use of the MDRD equation for patients that are not between the ages of 18 and 70, are , have extremes of body size, muscle mass, or nutritional status, or are non- or non-. According to the National Kidney Foundation, irrespective of diagnosis, the stage of the disease is based on the level of kidney function: Stage Description GFR(mL/min/1.73 m(2)) 1 Kidney damage with normal or decreased GFR 90 2 Kidney damage with mild decrease in GFR 60-89 3 Moderate decrease in GFR 30-59 4 Severe decrease in GFR 15-29 5 Kidney failure <15 (or dialysis) 19 Reference Range and Interpretation: TnI (ng/mL) Interpretation Less Than 0.03 ng/mL Not supportive of diagnosis of [place] 0.03 - 0.50 ng/mL Indeterminate: suggest serial studies if clinically indicated. Greater than 0.5 ng/mL Consistent with diagnosis of [place] 20 Acute inflammation: >10.00 21 This test detects intact HCG only and is indicated for the early detection of . 22 Acute inflammation: >10.00 In accordance with FDA guideline, CRP is now reported in mg/L, previous reporting was in mg/dL. 23 Because ethnic data is not always readily available, this report includes an eGFR for both -Americans and non- Americans. The National Kidney Disease Education Program (NKDEP) does not endorse the use of the MDRD equation for patients that are not between the ages of 18 and 70, are , have extremes of body size, muscle mass, or nutritional status, or are non- or non-. According to the National Kidney Foundation, irrespective of diagnosis, the stage of the disease is based on the level of kidney function: Stage Description GFR(mL/min/1.73 m(2)) 1 Kidney damage with normal or decreased GFR 90 2 Kidney damage with mild decrease in GFR 60-89 3 Moderate decrease in GFR 30-59 4 Severe decrease in GFR 15-29 5 Kidney failure <15 (or dialysis) 24 Please note: The following may produce a false positive D Dimer test: - Rheumatoid factor greater than 60 IU/ml - Plasma hemoglobin greater than 0.05 gm/dl - Bilirubin greater than 50 mg/dl - Lipids greater than 1000 mg/dl - FDP greater than 20 ug/ml 25 This test detects intact HCG only and is indicated for the early detection of . 26 >100 to <200 pg/mL: likely compensated congestive heart failure (CHF) 200 to 400 pg/mL: likely moderate CHF >400 pg/mL: likely moderate to severe CHF [place] [facility] 27 Because ethnic data is not always readily available, this report includes an eGFR for both -Americans and non- Americans. The National Kidney Disease Education Program (NKDEP) does not endorse the use of the MDRD equation for patients that are not between the ages of 18 and 70, are , have extremes of body size, muscle mass, or nutritional status, or are non- or non-. According to the National Kidney Foundation, irrespective of diagnosis, the stage of the disease is based on the level of kidney function: Stage Description GFR(mL/min/1.73 m(2)) 1 Kidney damage with normal or decreased GFR 90 2 Kidney damage with mild decrease in GFR 60-89 3 Moderate decrease in GFR 30-59 4 Severe decrease in GFR 15-29 5 Kidney failure <15 (or dialysis) 28 Reference Range and Interpretation: TnI (ng/mL) Interpretation Less Than 0.03 ng/mL Not supportive of diagnosis of [place] 0.03 - 0.50 ng/mL Indeterminate: suggest serial studies if clinically indicated. Greater than 0.5 ng/mL Consistent with diagnosis of [place] Procedures Description No Information Encounters Type Date Location Provider CPT E/M Dx Office Visit 12/05/2017 4:30p [place] [address] J45.901 Office Visit 11/09/2017 5:00p [place] [address] L60.0 Office Visit 11/07/2017 4:00p [place] [address] L60.0 Office Visit 09/13/2017 4:30p Main Office Javed Andrews III [facility] 26706 F41.9 F33.9 Office Visit 09/09/2017 4:30p [place] [address] J01.90 Office Visit 08/30/2017 2:15p [place] [address] J01.90 Office Visit 08/26/2017 1:30p [place] [address] J06.9 Office Visit 08/16/2017 4:30p Main Office Javed Andrews III [facility] 22261 F41.9 F33.9 Office Visit 07/19/2017 4:30p Main Office Javed Andrews III [facility] 65059 F41.9 F33.9 J06.9 Office Visit 07/05/2017 4:30p Main Office Javed Andrews III, [facility] 94766 F41.9 F33.9 Office Visit 06/07/2017 4:30p Main Office Javed Andrews III, [facility] 76660 F41.9 F33.9 Office Visit 06/29/2016 4:30p Main Office Javed Rebollarshar MICHEL, [facility] 06086 R10.9 Office Visit 06/21/2016 4:30p Main Office Marion Sandhu [employer] 28106 R13.10 Office Visit 03/23/2016 10:30a Main Office JANA PayneP-C 83962 M54.9 Office Visit 02/23/2016 3:30p Main Office Cabrera Sol [employer] 57973 H10.13 Office Visit 02/16/2016 5:15p [place] [address] H10.44 Office Visit 02/06/2016 8:00a [place] [address] H10.44 J45.998 Z23 Office Visit 10/29/2015 10:00a [place] [address] A09 Office Visit 01/17/2015 3:15p Main Office Marion Sandhu [facility] 827[address] 726.71 Office Visit 10/03/2014 2:45p Main Office Ginger Cardona M.D. 95309 786.50 Office Visit 09/27/2014 1:45p Main Office Alexis Chan M.D. 35521 466.0 733.6 493.92 Office Visit 09/25/2014 9:30a Main Office JANA PayneP-C 70807 466.0 Office Visit 07/29/2014 1:45p Main Office DREW PayneC 11361 461.9 Office Visit 05/29/2014 10:30a Main Office Marion Sandhu [facility] 25581 382.9 461.9 Plan of Care Future Appointment(s):12/13/2017 4:15 pm - Javed Andrews III, CASSIE-[facility] at Main [facility]8212/12/2017 - Fede Saul MDJ18.9 Pneumonia, unspecified organismNew Medication:Azithromycin 250 mgComments:Despite patient being young and vital, she has been in mild respiratory distress for days now and will eventually tire and decompensate. She said she was a little confused at one point last night when I asked her. We managed to get her up to 93% oxygen, which should be enough to avoid an ambulance ride. Her mom will bring her to ED. She will probably need oxygen, observation, and a couple doses of IVabx I would imagine. We had considered simply adding azithromycin to improve coverage of CAP, but she appears too ill for this to be a safe plan.
--- OUTSIDE RECORDS SUMMARY | 2017-12-12 18:52 | XMS REPORT ---
:1990 External Reference #:[id number] Author Organization [facility] Address [address] [place] [address] Phone [phone] Care Team Providers Name Role Phone SANTIAGO Harrell III Care Team Information Study Specialist Unavailable Payers Type Date Identification Numbers Payment Provider Subscriber Commercial Policy Number: [id number] Gali GOMEZ Steffany French Group Name: BC/BS of [facility] [address] [address] PayID: [id number] BENNIE Card [id number] Advance Directives Type Date Description Status Comment Other Directive 05/26/2014 Health Care Proxy Current and Verified Problems Description No Information Family History Date Family Member(s) Problem(s) Comments Father Kidney Stones Mother Migraines Social History Type Date Description Comments Education Hightest level completed, 1 completed a couple year of college semesters at [employer] Marital Status Single Lives With Roommate Diet Average daily caloric intake is adequate Diet Adequate intake of fruits Diet Adequate intake of protein Diet Adequate intake of vegetables Sleep Reports difficulty falling asleep Sleep Typically sleeps 8 hours a night 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 [employer] Cigarette Use Never Smoked Cigarettes ETOH Use [...] Form Strength Qnty SIG Indications Ordering Provider Albuterol HFA 12/05 Active 90mcg/Inh 2 puffs every 4 [place] hours as , needed Ventolin HFA 12/05 Active Aerosol 108(90Bas 8gm 1-2 puffs Fede e) four times [place] mcg/Act a day as , needed Prednisone 12/05 Active Tablets 50mg 5tabs 1 tablet Fede daily for 5 [place]ks days , Zyrtec Allergy 09/13 Active Capsules 10mg 30cap 1 cap once Javed s daily for Severance allergies III, [employer] WEIGH OPERATOR-C Cefuroxime 09/04 Active Tablets 500mg 20tab one by Ilda Axetil s mouth twice Serena, a day M.D., R.D. Astepro 09/04 Active Solution 0.15% 30uni spray 2 ts sprays into [facility], each M.D., nostril one R.D. time daily Sertraline HCL 08/16 Active Tablets 25mg 30tab 1 by mouth F41.9 Javed s every day Darryl III, [employer] O[employer]ATOR[employer] Buspirone HCL 08/16 Active Tablets 7.5mg 60tab take one F41.9 Javed s tablet by Darryl mouth twice III, a day for [employer]OPE WEIGH OPERATOR-C anxiety Ibuprofen 03/23 Active Tablets 600mg 120ta take one M54.9 bs tablet by Stephanie, mouth 4 [employer] WEIGH OPERATOR-C times daily with food as needed for pain Lidoderm 09/27 Active Patches 5% 30uni apply to 733.6 ts affected [facility] for 12 M.D. hours a day Epipen 2-Alan Active Solution 0.3mg/0.3 1unit use as Unknown /0000 Auto-Inject ML s directed for bee-sting allergy and call 911 Yocasta Active IUD 13.5mg jul 2016 Unknown /0000 Bactrim DS 11/07 Hx Tablets 800-160mg 14tab 1 by mouth L60.0 s twice a day Shortle, - x 7 days SAMPLES AND REPAIRS PREPARER 12/05 Augmentin 08/30 Hx Tablets 875-125mg 14tab 1 tab by J01.90 Concepción s mouth twice Shortle, - a day for 7 SAMPLES AND REPAIRS PREPARER Sertraline HCL 07/19 Hx Tablets 50mg 30tab 1 by mouth F41.9 Javed s every day Darryl - III, 08/16 [employer] OPERATOR-C Sertraline HCL 07/05 Hx Tablets 25mg 14tab 1 by mouth F41.9 Javed s every day Darryl - III, 07/19 [employer] OPERATOR-C Escitalopram 06/07 Hx Tablets 10mg 30tab 1 by mouth F41.9 Javed Oxalate s every day Severance - III, 07/05 [facility] Protonix 06/[address] 20mg 30tab 1 by mouth Marion s every day Stephanie, - [employer] WEIGH OPERATOR-C 05/08 Cyclobenzaprine 03/23 Hx Tablets 5mg 30tab 1-2 by M54.9 Marion HCL /2015 s mouth three Stephanie, - times a day [employer] WEIGH OPERATOR-C 05/08 for spasm, may cause drowsiness Pataday 02/22 Hx Solution 0.2% 2.500 instill one H10.13 wnt ml drop in R. Storm, - each eye [employer] WEIGH OPERATOR-C 05/08 Rhinocort Aqua 02/15 Hx Suspension 32mcg/Act [...] by mouth Stephanie, - every day x DOPE WEIGH OPERATOR-C 03/23 5 days Hydrocodone-Acet 01/17 Hx Tablets 5-325mg 20twe 1 by mouth Marion aminophen nty q4 - 6 Stephanie, - hours as DOPE WEIGH OPERATOR-C 03/23 Idbenzonatate 10/01 Hx Capsules 200mg 30cap 1 cap po s tid prn Stephanie, - cough [employer] WEIGH OPERATOR-C 03/23 Prednisone 09/27 Hx Tablets 20mg qs 2 po qd x 4 493.92 days, then Chan, - 1 po qd x 4 M.D. 01/17 days, 09/06 po qd x 2 days Amoxicillin/Clav 09/25 Hx Tablets 875-125mg 20tab 1 tablet 466.0 Marion anat s twice a day Stephanie Potassium - x 10 days [employer]OPE WEIGH OPERATOR-C 10/03 Benzonatate 09/25 Hx Capsules 100mg 45cap 1 by mouth 466.0 s three times Stephanie, - a day as DOPE WEIGH OPERATOR-C 10/01 needed cough Amoxicillin/Clav 05/29 Hx Tablets 875-125mg 20tab 1 tablet 382.9 s twice a day Stephanie, Potassium - x 10 days [employer] WE[employer] OPERATOR-C 10/03 Nuvaring 00/00 Hx Ring 0.12-0.01 3unit insert one Unknown /0000 5mg/24HR s ring into - the vagina, 05/08 monthly Albuterol HFA 00/00 Hx 90mcg/Inh 1unit 2 Unknown /0000 s inhalation - q4-6 hours 12/05 as needed shortness of breath, cough, wheeze Immunizations CPT Code Status Date Vaccine Lot # [id number] Given 05/20/2017 Influenza Virus Vaccine, Quadrivalent, 3 Yr > Quad, Preserv Free 87522 Given 02/06/2016 Pneumovax 23 (PPSV23) 65+ years or high risk 2 to [id number] 66 year old 21673 Given 12/30/2014 HPV Vaccine, Gardasil [id number] 03550 Given 05/25/2010 Menactra (meningococcal conjugate vaccine) 92283 Given 05/21/2008 HPV Vaccine, Gardasil 91497 Given 02/01/2008 HPV Vaccine, Gardasil 35921 Given 11/27/2007 Hepatitis A (Ped) 2 Dose Schedule 96784 Given 11/23/2006 Hepatitis A (Ped) 2 Dose Schedule 65325 Given 11/18/2005 Tdap (Adacel) 06121 Given 06/23/1997 MMR (Measles,Mumps,Rubella) 26357 Given 06/15/1997 Hep B Vaccine, Ped/Adol Dose 3 Dose (Engerix or Recombivax) 46753 Given 06/13/1997 DTaP (Daptacel) 04996 Given 06/13/1997 Opv (Poliovirus,Oral) 16759 Given 09/14/1996 Hep B Vaccine, Ped/Adol Dose 3 Dose (Engerix or Recombivax) 12965 Given 06/27/1996 Hep B Vaccine, Ped/Adol Dose 3 Dose (Engerix or Recombivax) 54962 Given 09/23/1993 Opv (Poliovirus,Oral) 93131 Given 09/23/1993 MMR (Measles,Mumps,Rubella) 18079 Given 09/23/1993 DTaP (Daptacel) 44502 Given 09/23/1993 Hib (Hemophilus Influenza B) (Acthib) 85593 Given 1992 DTaP (Daptacel) 33311 Given 1992 Hib (Hemophilus Influenza B) (Acthib) 09556 Given 1992 Hib (Hemophilus Influenza B) (Acthib) 88255 Given 1992 Opv (Poliovirus,Oral) 05453 Given 1990 DTaP (Daptacel) 79538 Given 1992 Opv (Poliovirus,Oral) 92651 Given 1992 DTaP (Daptacel) 75960 Given 1992 Hib (Hemophilus Influenza B) (Acthib) 32906 Given Unknown DTaP (Daptacel) 11865 Refused 08/26/2017 Influenza Virus Vaccine, Quadrivalent, 3 Yr > Quad, Preserv Free Vital Signs Date Vital Result Comment 12/05/2017 Weight 127.00 lb Weight in kg's [...] Color Yellow Urine Appearance Clear Urine Specific [place] 1.023 1.010-1.030 Urine pH 6.0 5-9 Urine [...] 5 5-6 Urine Blood NEG Neg Specific [place] 1.02 1.01-1.02 Urine Ketones NEG Neg Urine [...] Color Yellow Urine Appearance Cloudy Urine Specific [place] 1.019 1.010-1.030 Urine pH 6.0 5-9 Urine [...] Color Straw Urine Appearance Clear Urine Specific [place] 1.009 Low 1.010-1.030 Urine pH 5.0 5-9 [...] < 200 ng/mL Less Than 230 15 Laboratory test finding 11/05/2014 Lipase 21 U/L 11.0-82.0 Comp Metabolic Panel 11/05/2014 Sodium 137 mmol/L [...] >60 Egfr 107.6 >60 16 Laboratory test 10/03/2014 D Dimer Quantitative < 200 ng/mL Less Than 230 17 finding Comp Metabolic Panel 10/03/2014 Sodium 139 mmol/L [...] [address]: Concepción Duval NP Acct: [id number] Unit: [id number] AGE: 27 Location: [facility] Re11/07/17 SEX: F Status: REG REF SPEC: [id number] DEB: 11/07/[address] [facility] [address]: Concepción Duval SAMPLES AND REPAIRS PREPARER REQ: [id number] RECD: 11/07/17 STATUS: COMP _ SOURCE: TOE SPDESC: ORDERED: Culture Stain COMMENTS: Submitted to [facility] via [employer] system by [id number] at 1351 on 11/08/17. Verbal STREP A S.A. to JACKIE Brown [phone] by [id number] at 1203 on 11/08/17. Results read back accurately. [id number] Specimen Description Left great toe Procedure Result [...] CONTINUED ON NEXT PAGE DEPARTMENT OF PATHOLOGY, [address] [place] [address] Shai Pedraza M.D. Director [facility] # [id number] Patient: GILLIAN,WILFRED [id number] (Continued) Specimen: [id number] Collected: 11/07/17 Received: 11/07/17 (Continued) Procedure Result [...] CONTINUED ON NEXT PAGE DEPARTMENT OF PATHOLOGY, [address] [place] [address] Shai Pedraza M.D. Director [facility] # [id number] Patient: WILFRED FRENCH [id number] (Continued) Specimen: [id number] Collected: 11/07/17 Received: 11/07/17 (Continued) Procedure Result Reported Site Wound/Misc Culture Final (continued) * These antibiotics are not available in the [facility] Formulary Contact the Microbiology Department for any additional antibiotic reporting. * - [facility] . END OF REPORT DEPARTMENT OF PATHOLOGY, [address] [place] [address] Shai Pedraza M.D. Director [facility] # [id number] 2 SEE RESULT BELOW Name: WILFRED FRENCH : [address]: Javed Andrews III SAMPLES AND REPAIRS PREPARER Acct: [id number] Unit: [id number] AGE: 26 Location: [facility] Re06/29/16 SEX: F Status: REG REF SPEC: [id number] DEB: 06/29/[address]: Javed Andrews III SAMPLES AND REPAIRS PREPARER REQ: [id number] RECD: 06/29/16 STATUS: COMP _ SOURCE: URINE SPDESC: ORDERED: Urine Culture COMMENTS: [id number] Procedure Result Reported Site Urine Culture Final 06/30/16- 1606 ML No Growth (<1,000 CFU/mL) * ML - MAIN LAB ([facility]) . END OF REPORT * ML=Testing performed at Main Lab DEPARTMENT OF PATHOLOGY, [address] [place] [address] Shai Pedraza M.D. Director [facility] # [id number] 3 Acute inflammation: >10.00 4 <5.0 Negative 5.0 - 25.0 Indeterminate (Repeat testing recommended after 72 hours) >25.0 Positive Perimenopausal women can display HCG levels of up to 20 mIU/mL 5 SEE RESULT BELOW Name: WILFRED FRENCH : [address]: Ely Coronado MD Acct: [id number] Unit: [id number] AGE: 25 Location: ED Re06/14/16 SEX: F Status: DEP ER SPEC: [id number] DEB: 06/14/[address]: Ely Coronado MD REQ: [id number] RECD: 06/14/16 STATUS: SAMRA NINO DR: Marion Sandhu SAMPLES AND REPAIRS PREPARER _ SOURCE: URINE SPDESC: ORDERED: Urine Culture Procedure Result Reported Site Urine Culture Final 06/16/16- 815 ML No growth of clinically significant organisms * ML - MAIN LAB ([facility]) . END OF REPORT * ML=Testing performed at Main Lab DEPARTMENT OF PATHOLOGY, [address] [place] [address] Shai Pedraza M.D. Director [facility] # [id number] 6 SEE RESULT BELOW Name: WILFRED FRENCH : [address]: Dylon Reyes MD Acct: [id number] Unit: [id number] AGE: 24 Location: ED Re03/10/15 SEX: F Status: DEP ER SPEC: [id number] DEB: 03/10/[address]: Shilpi ULRICH REQ: [id number] RECD: 03/10/15 STATUS: SAMRA NINO DR: Dylon Sandhu SAMPLES AND REPAIRS PREPARER _ SOURCE: VAGINAL SPDESC: ORDERED: Jarrett,Yeast DNA Procedure Result Verified Site Gardnerella/Yeast: Vaginal [...] or failure. * ML - MAIN LAB ([facility]) . END OF REPORT * ML=Testing performed at Main Lab DEPARTMENT OF PATHOLOGY, [address] [place] [address] Shai Pedraza M.D. Director [facility] # [id number] 7 Female urine specimens have been self-validated by [facility] and have been granted conditional assay approval by [facility]. [facility] Specimen Source: cervix GC/Chlamydia Source?: Endocervical [...] [address]: Dylon Reyes MD Acct: [id number] Unit: [id number] AGE: 24 Location: ED Re03/10/15 SEX: F Status: DEP ER SPEC: [id number] DEB: 03/10/[address]: Shilpi ULRICH REQ: [id number] RECD: 03/10/15 STATUS: SAMRA NINO DR: Dylon Sandhu SAMPLES AND REPAIRS PREPARER _ SOURCE: BLOOD,VENO SPDESC: ORDERED: Blood Cult Procedure Result Verified Site Aerobic Culture Bottle Final 07/11/15- 1718 ML No Growth Day 5 Anaerobic Culture Bottle Final 03/15/15- 1718 ML No Growth Day 5 * ML - [facility] ([facility]) . END OF REPORT * ML=Testing performed at [facility] DEPARTMENT OF PATHOLOGY, [address] [place] [address] Shai Pedraza M.D. Director [facility] # [id number] 12 Because ethnic data is not always [...] 0.03 ng/mL Not supportive of diagnosis of [place] 0.03 - 0.50 ng/mL Indeterminate: suggest serial studies if clinically indicated. Greater than 0.5 ng/mL Consistent with diagnosis of VA 20 Acute inflammation: >10.00 21 This test [...] 0.03 ng/mL Not supportive of diagnosis of VA 0.03 - 0.50 ng/mL Indeterminate: suggest serial studies if clinically indicated. Greater than 0.5 ng/mL Consistent with diagnosis of VA Procedures Description No Information Encounters Type Date Location Provider CPT E/M Dx Office Visit 12/05/2017 4:30p [place] [address] J45.901 Office Visit 11/09/2017 5:00p [place] [address] L60.0 Office Visit 11/07/2017 4:00p [place] [address] L60.0 Office Visit 09/13/2017 4:30p Main Office Javed Andrews III, DOPE WEIGH OPERATOR-C 43861 F41.9 F33.9 Office Visit 09/09/2017 4:30p [place] [address] J01.90 Office Visit 08/30/2017 2:15p [place] [address] J01.90 Office Visit 08/26/2017 1:30p [place] [address] J06.9 Office Visit 08/16/2017 4:30p Main Office Javed Andrews III, DOPE WEIGH OPERATOR-C 52991 F41.9 F33.9 Office Visit 07/19/2017 4:30p Main Office Javed Severance III, DOPE WEIGH OPERATOR-C 77562 F41.9 F33.9 J06.9 Office Visit 07/05/2017 4:30p Main Office Javed Severance III, DOPE WEIGH OPERATOR-C 56529 F41.9 F33.9 Office Visit 06/07/2017 4:30p Main Office Javed Darryl III, D[employer] WEIGH OPERATOR-C 71968 F41.9 F33.9 Office Visit 06/29/2016 4:30p Main Office Javed Darryl III, DOPE WEIGH OPERATOR-C 94329 R10.9 Office Visit 06/21/2016 4:30p [facility] [address]502 R13.10 Office Visit 03/23/2016 10:30a Main Office [facility] 51934 M54.9 Office Visit 02/23/2016 3:30p Main Office Isabelkhalif NunezSANTIAGO Lisa 83073 H10.13 Office Visit 02/16/2016 5:15p [place] [address] H10.44 Office Visit 02/06/2016 8:00a [place] [address] H10.44 J45.998 Z23 Office Visit 10/29/2015 10:00a [place] [address] A09 Office Visit 01/17/2015 3:15p Main Office SANTIAGO Payne 48364 726.71 Office Visit 10/03/2014 2:45p Main Office Ginger Cardona M.D. 63061 786.50 Office Visit 09/27/2014 1:45p Main Office Alexis Chan M.D. 31165 466.0 733.6 493.92 Office Visit 09/25/2014 9:30a Main Office [facility] [address]389 466.0 Office Visit 07/29/2014 1:45p Main Office SANTIAGO Payne 08603 461.9 Office Visit 05/29/2014 10:30a Main Office Marion Sandhu [employer]OPE WEIGH OPERATOR-C 93154 382.9 461.9 Plan of Care Future Appointment(s):12/13/2017 4:15 pm - SANTIAGO Harrell III at Main [facility]6612/05/2017 - Fede Saul MDJ45.901 Unspecified asthma with (acute) exacerbationComments:I refilled her albuterol inhaler.I gave her a few dual nebs to take home to get her through this illness.5 day course of prednisone, I gave her the first dose in the office now. 50 mg.I asked her to call back if her symptoms are worsening or not improving.
--- OUTSIDE RECORDS SUMMARY | 2017-12-12 18:52 | XMS REPORT ---
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 [address] PayID: [id number] BENNIE Card [id number] Advance Directives Type Date Description Status Comment Other Directive 05/26/2014 Health Care Proxy Current and Verified Problems Description No Information Family History Date Family Member(s) Problem(s) Comments Father Kidney Stones Mother Migraines Social History Type Date Description Comments Education Hightest level completed, 1 completed a couple year of college semesters at [employer] Marital Status Single Lives With Roommate Diet Average daily caloric intake is adequate Diet Adequate intake of fruits Diet Adequate intake of protein Diet Adequate intake of vegetables Sleep Reports difficulty falling asleep Sleep Typically sleeps 8 hours a night 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 Astepro 09/04 Active Solution 0.15% 30uni spray 2 ts sprays into [facility], each M.D., nostril one R.D. time daily Sertraline HCL 08/16 Active Tablets 25mg 30tab 1 by mouth F41.9 Javed s every day [place] III, LEAD APPLICATION ARCHITECT-C Buspirone HCL 08/16 Active Tablets 7.5mg 60tab take one F41.9 s tablet by Darryl mouth twice III, a day for LEAD APPLICATION ARCHITECT-C anxiety Ibuprofen 03/23 Active Tablets 600mg 120ta take one M54.9 bs tablet by Stephanie, mouth 4 LEAD APPLICATION ARCHITECT-C times daily with food as needed for pain Lidoderm 09/27 Active Patches 5% 30uni apply to 733.6 ts affected [facility] area for 12 M.D. 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 FARM ATTENDANT Sertraline HCL 07/19 Hx Tablets 50mg 30tab 1 by mouth F41.9 Javed s every day Darryl - III, 08/16 LEAD APPLICATION ARCHITECT- Sertraline HCL 07/05 Hx Tablets 25mg 14tab 1 by mouth F41.9 Javed /2016 s every day [place] - III, 07/19 LEAD APPLICATION ARCHITECT-C Escitalopram 06/07 Hx Tablets 10mg 30tab 1 by mouth F41.9 Javed Oxalate s every day Darryl - III, 07/05 LEAD APPLICATION ARCHITECT-C Protonix 06/[address] 20mg 30tab 1 by mouth Marion s every day Stephanie, - LEAD APPLICATION ARCHITECT-C 05/08 Cyclobenzaprine 03/23 Hx Tablets 5mg 30tab 1-2 by M54.9 Marion HCL /2015 s mouth three Stephanie, - times a day LEAD APPLICATION ARCHITECT-C 05/08 for spasm, may cause drowsiness Pataday 02/22 Hx Solution 0.2% 2.500 instill one H10.13 wnt ml drop in [place]. [place], - each eye LEAD APPLICATION ARCHITECT-C 05/08 Rhinocort Aqua 02/15 Hx Suspension 32mcg/Act 1unit 1 H10.44 Fede s intranasal [place] - puff daily , 05/08 Cetirizine HCL 02/05 Hx Tablets 10mg 30tab 1 by mouth H10.44 Fede s every day Kg - , 05/08 Loperamide HCL 10/29 Hx Tablets 2mg 30tab 1 tab by A09 Fede s mouth three [place] - times a day , 05/08 as needed Prednisone 01/17 Hx Tablets 20mg 10tab take 2 tabs 726.71 s by mouth Stephanie, - every day x LEAD APPLICATION ARCHITECT-C 03/23 5 Hydrocodone-Acet 01/17 Hx Tablets 5-325mg 20twe 1 by mouth nty q4 - 6 Stephanie, - hours as LEAD APPLICATION ARCHITECT-C 03/23 needed Idbenzonatate 10/01 Hx Capsules 200mg 30cap 1 cap po s tid prn Stephanie, - cough LEAD APPLICATION ARCHITECT-C 03/23 Prednisone 09/27 Hx Tablets 20mg qs 2 po qd x 4 493.92 days, then Chan, - 1 po qd x 4 M.D. , 09/06 po qd x 2 days Amoxicillin/Clav 09/25 Hx Tablets 875-125mg 20tab 1 tablet 466.0 Marion velez s twice a day Stephanie, Potassium - x 10 days LEAD APPLICATION ARCHITECT-C 10/03 Benzonatate 09/25 Hx Capsules 100mg 45cap 1 by mouth 466.0 s three times Stephanie, - a day as LEAD APPLICATION ARCHITECT-C 10/01 cough Amoxicillin/Clav 05/29 Hx Tablets 875-125mg 20tab 1 tablet 382.9 Marion s twice a day Stephanie, Potassium - x 10 days LEAD APPLICATION ARCHITECT-C 10/03 Nuvaring Hx Ring 0.12-0.01 3unit insert one Unknown /0000 5mg/24HR s ring into - the vagina, 05/08 monthly Immunizations CPT Code Status Date Vaccine Lot # [id number] Given 05/20/2017 Influenza Virus Vaccine, Quadrivalent, 3 Yr > Quad, Preserv Free 49718 Given 02/06/2016 Pneumovax 23 (PPSV23) 65+ years or high risk 2 to [id number] 66 year old 51842 Given 12/30/2014 HPV Vaccine, Gardasil [id number] 31085 Given 05/25/2010 Menactra (meningococcal conjugate vaccine) 48676 Given 05/21/2008 HPV Vaccine, Gardasil 95777 Given 02/01/2008 HPV Vaccine, Gardasil 39748 Given 11/27/2007 Hepatitis A (Ped) 2 Dose Schedule 09857 Given 11/23/2006 Hepatitis A (Ped) 2 Dose Schedule 87530 Given 11/18/2005 Tdap (Adacel) 91305 Given 06/23/1997 MMR (Measles,Mumps,Rubella) 80029 Given 06/15/1997 Hep B Vaccine, Ped/Adol Dose 3 Dose (Engerix or Recombivax) 78835 Given 06/13/1997 DTaP (Daptacel) 16867 Given 06/13/1997 Opv (Poliovirus,Oral) 10195 Given 09/14/1996 Hep B Vaccine, Ped/Adol Dose 3 Dose (Engerix or Recombivax) 24410 Given 06/27/1996 Hep B Vaccine, Ped/Adol Dose 3 Dose (Engerix or Recombivax) 14490 Given 09/23/1993 Opv (Poliovirus,Oral) 16885 Given 09/23/1993 MMR (Measles,Mumps,Rubella) 17946 Given 09/23/1993 DTaP (Daptacel) 60469 Given 09/23/1993 Hib (Hemophilus Influenza B) (Acthib) 41778 Given 1992 DTaP (Daptacel) 78128 Given 1992 Hib (Hemophilus Influenza B) (Acthib) 60374 Given 1992 Hib (Hemophilus Influenza B) (Acthib) 69139 Given 1992 Opv (Poliovirus,Oral) 28831 Given 1992 DTaP (Daptacel) 72518 Given 1992 Opv (Poliovirus,Oral) 05460 Given 1990 DTaP (Daptacel) 95795 Given 1992 Hib (Hemophilus Influenza B) (Acthib) 14685 Given Unknown DTaP (Daptacel) 44668 Refused 08/26/2017 Influenza Virus Vaccine, Quadrivalent, 3 Yr > Quad, Preserv Free Vital Signs Date Vital Result Comment 11/09/2017 Weight 124.00 lb Weight in kg's [...] Color Yellow Urine Appearance Clear Urine Specific [place] 1.023 1.010-1.030 Urine pH 6.0 5-9 Urine [...] 5 5-6 Urine Blood NEG Neg Specific [place] 1.02 1.01-1.02 Urine Ketones NEG Neg Urine [...] Color Yellow Urine Appearance Cloudy Urine Specific [place] 1.019 1.010-1.030 Urine pH 6.0 5-9 Urine [...] Color Straw Urine Appearance Clear Urine Specific [place] 1.009 Low 1.010-1.030 Urine pH 5.0 5-9 [...] IU/mL 0.34-5.60 1 SEE RESULT BELOW Name: GILLIANWILRFED : [address]: Concepción Duval NP Acct: [id number] Unit: [id number] AGE: 27 Location: [facility] Re11/07/17 SEX: F Status: REG REF SPEC: [id number] DEB: 11/07/[address] [facility] [address]: Concepción Duval NP REQ: [id number] RECD: 11/07/17 STATUS: COMP _ SOURCE: TOE SPDESC: ORDERED: Culture Stain COMMENTS: Submitted to [facility] via WaveRx system by [email or web address] at 1351 on 11/08/17. Verbal STREP A S.A. to JACKIE Brown [id number] by [email or web address] at 1203 on 11/08/17. Results read back accurately. [id number] Specimen Description Left great toe Procedure Result [...] CONTINUED ON NEXT PAGE DEPARTMENT OF PATHOLOGY, [address] [place] [address] Shai Pedraza M.D. Director [facility] # [id number] Patient: WILFRED FRENCH [id number] (Continued) Specimen: [id number] Collected: 11/07/17 Received: 11/07/17 (Continued) Procedure Result [...] CONTINUED ON NEXT PAGE DEPARTMENT OF PATHOLOGY, [address] [place] [address] Shai Pedraza M.D. Director [facility] # [id number] Patient: WILFRED FRENCH [id number] (Continued) Specimen: [id number] Collected: 11/07/17 Received: 11/07/17 (Continued) Procedure Result Reported Site Wound/Misc Culture Final (continued) * These antibiotics are not available in the [facility] Formulary Contact the Microbiology Department for any additional antibiotic reporting. * - [facility] . END OF REPORT DEPARTMENT OF PATHOLOGY, [address] [place] [address] Shai Pedraza M.D. Director [facility] # [id number] 2 SEE RESULT BELOW Name: WILFRED FRENCH : [address]: Javed Andrews III, NP Acct: [id number] Unit: [id number] AGE: 26 Location: [facility] Re06/29/16 SEX: F Status: REG REF SPEC: [id number] DEB: 06/29/16-[address] [facility] [address]: Javed Andrews III TANK FARM ATTENDANT REQ: [id number] RECD: 06/29/16 STATUS: COMP _ SOURCE: URINE [facility]: ORDERED: Urine Culture COMMENTS: [id number] Procedure Result Reported Site Urine Culture Final 06/30/16- 1606 ML No Growth (<1,000 CFU/mL) * ML - MAIN LAB ([facility]) . END OF REPORT * ML=Testing performed at Main Lab DEPARTMENT OF PATHOLOGY, [address] [place] [address] Shai Pedraza M.D. Director [facility] # [id number] 3 Acute inflammation: >10.00 4 <5.0 Negative 5.0 - 25.0 Indeterminate (Repeat testing recommended after 72 hours) >25.0 Positive Perimenopausal women can display HCG levels of up to 20 mIU/mL 5 SEE RESULT BELOW Name: WILFRED FRENCH : [address]: Ely Coronado MD Acct: [id number] Unit: [id number] AGE: 25 Location: ED Re06/14/16 SEX: F Status: DEP ER SPEC: [id number] DEB: 06/14/[address]: Ely Coronado MD REQ: [id number] RECD: 06/14/16 STATUS: SAMRA NINO DR: Marion Sadnhu TANK FARM ATTENDANT _ SOURCE: URINE SPDESC: ORDERED: Urine Culture Procedure Result Reported Site Urine Culture Final 06/16/16- 815 ML No growth of clinically significant organisms * ML - MAIN LAB ([facility]) . END OF REPORT * ML=Testing performed at Main Lab DEPARTMENT OF PATHOLOGY, [address] [place] [address] Shai Pedraza M.D. Director [facility] # [id number] 6 SEE RESULT BELOW Name: WILFRED FRENCH : [address]: Dylon Reyes MD Acct: [id number] Unit: [id number] AGE: 24 Location: ED Re03/10/15 SEX: F Status: DEP ER SPEC: [id number] DEB: 03/10/[address]: Shilpi ULRICH REQ: [id number] RECD: 03/10/15 STATUS: SAMRA HORN DR: Dylon Sandhu TANK FARM ATTENDANT _ SOURCE: VAGINAL SPDESC: ORDERED: Jarrett,Yeast DNA [...] or failure. * ML - MAIN LAB ([facility]) . END OF REPORT * ML=Testing performed at Main Lab DEPARTMENT OF PATHOLOGY, [address] [place] [address] Shai Pedraza M.D. Director [facility] # [id number] 7 Female urine specimens have been self-validated by [facility] Laboratory and have been granted conditional assay approval by [facility]. 8 [facility] Specimen Source: cervix GC/Chlamydia Source?: Endocervical Trichomonas [...] inflammation: >10.00 11 SEE RESULT BELOW Name: TYREL FRENCHY : [address]: Dylon Reyes MD Acct: [id number] Unit: [id number] AGE: 24 Location: ED Re03/10/15 SEX: F Status: DEP ER SPEC: [id number] DEB: 03/10/[address]: Shilpi ULRICH REQ: [id number] RECD: 03/10/15 STATUS: SAMRA NINO DR: Dylon Sandhu TANK FARM ATTENDANT _ SOURCE: BLOOD,VENO SPDES: ORDERED: Blood Cult Procedure Result Verified Site Aerobic Culture Bottle Final 03/15/15- 1717 ML No Growth Day 5 Anaerobic Culture Bottle Final 03/15/15- 1717 ML No Growth Day 5 * ML - MAIN LAB ([facility]) . END OF REPORT * ML=Testing performed at Main Lab DEPARTMENT OF PATHOLOGY, [address] [place] [address] Shai Pedraza M.D. Director [facility] # [id number] 12 Because ethnic data is not always [...] 0.03 ng/mL Not supportive of diagnosis of ME 0.03 - 0.50 ng/mL Indeterminate: suggest serial studies if clinically indicated. Greater than 0.5 ng/mL Consistent with diagnosis of ME 20 Acute inflammation: >10.00 21 This test [...] 0.03 ng/mL Not supportive of diagnosis of ME 0.03 - 0.50 ng/mL Indeterminate: suggest serial studies if clinically indicated. Greater than 0.5 ng/mL Consistent with diagnosis of ME Procedures Description No Information Encounters Type Date Location Provider CPT E/M Dx Office Visit 09/13/2017 4:30p Main Office Javed Andrews III, LEAD APPLICATION ARCHITECT-C 33903 F41.9 F33.9 Office Visit 09/09/2017 4:30p [place] [address] J01.90 Office Visit 08/30/2017 2:15p Main Office Concepción Dvual, ALEJANDRO 19325 J01.90 Office Visit 08/26/2017 1:30p [place] [address] J06.9 Office Visit 08/16/2017 4:30p Main Office Javed Andrews III, LEAD APPLICATION ARCHITECT-C 56467 F41.9 F33.9 Office Visit 07/19/2017 4:30p Main Office Javed Andrews III, LEAD APPLICATION ARCHITECT-C 96985 F41.9 F33.9 J06.9 Office Visit 07/05/2017 4:30p Main Office Javed Andrews III, LEAD APPLICATION ARCHITECT-C 59180 F41.9 F33.9 Office Visit 06/07/2017 4:30p Main Office Javed Andrews III, LEAD APPLICATION ARCHITECT-C 06698 F41.9 F33.9 Office Visit 06/29/2016 4:30p Main Office Javed Andrews III, LEAD APPLICATION ARCHITECT-C 39008 R10.9 Office Visit 06/21/2016 4:30p Main Office Marion Sandhu, LEAD APPLICATION ARCHITECT-C 61142 R13.10 Office Visit 03/23/2016 10:30a Main Office Marion Sandhu LEAD APPLICATION ARCHITECT-C 82814 M54.9 Office Visit 02/23/2016 3:30p Main Office Cabrera Sol, LEAD APPLICATION ARCHITECT-C 54433 H10.13 Office Visit 02/16/2016 5:15p [place] [address] H10.44 Office Visit 02/06/2016 8:00a [place] [address] H10.44 J45.998 Z23 Office Visit 10/29/2015 10:00a [place] [address] A09 Office Visit 01/17/2015 3:15p Main Office Marion Sandhu LEAD APPLICATION ARCHITECT-C 12063 726.71 Office Visit 10/03/2014 2:45p Main Office Ginger Cardona M.D. 94011 786.50 Office Visit 09/27/2014 1:45p Main Office Alexis Chan M.D. 40545 466.0 733.6 493.92 Office Visit 09/25/2014 9:30a Main Office Marion AzevedokelveyJANAP-C 20792 466.0 Office Visit 07/29/2014 1:45p Main Office Marion Sandhu LEAD APPLICATION ARCHITECT-C 53522 461.9 Office Visit 05/29/2014 10:30a Main Office Marion AzevedokelveyCASSIE-C 07153 382.9 461.9 Plan of Care Future Appointment(s):12/13/2017 4:15 pm - Javed Andrews III, LEAD APPLICATION ARCHITECT-C at Main [facility]1311/09/2017 - Fede Saul MDL60.0 Ingrowing nailComments:I presented 3 options to her: she could just continue on the antibiotics and with the soaks. This should be safe, the infection still does not look severe.We did numb it up locally and try to drain thecollection. This should speed things up a little bit.Or we could remove the medial third of the nailand be sure that we' ll just be done with it.She wants this to be over with, and chooses option 3.Nail removed as above.I advised her to wait until feeling (pain) returns, then return to warm water soaks. She will continue the antibiotic. I expect quick resolution.
--- OUTSIDE RECORDS SUMMARY | 2017-12-12 18:52 | XMS REPORT ---
:1990 External Reference #:[id number] Author Organization [facility] [employer] Address [address] [place] [address] Phone [phone] Care Team Providers Name Role Phone Alexis Chan MD Care Team Information Cabinet Maker Unavailable Alexis Chan MD Primary Care Physician Unavailable Payers Type Date Identification Numbers Payment Provider Subscriber Commercial Policy Number: [id number] [facility] Chrisus Steffany Banks PayID: [id number] [address] [address] [place] [address] Problems Description No Information Social History Description No Information Available Allergies, Adverse Reactions, Alerts Date Description Reaction Status Severity Comments 11/25/2017 Acetaminophen active 11/25/2017 Diphenhydramine active IV, too fast of a push causes pt to pass out 11/25/2017 Codeine active Medications Medication Date Status Form Strength Qnty SIG Indications Ordering Provider Ventolin HFA 08/03/ Active Aerosol 108(90Base 18unit Inhale 1-2 Me[place]aint [place] 2014 ) mcg/Act s Puffs Kenney Cooper MD Every 4 Hours as Needed. Buspirone / Active Tablets 7.5mg Unknown HCL 0000 Zoloft / Active Tablets 25mg Unknown 0000 Epipen 2-Alan / Active Solution 0.3mg/0.3M as Unknown 0000 Auto-Injec L directed t Vital Signs Date Vital Result Comment 11/25/2017 BP Systolic 110 mmHg BP Diastolic 68 mmHg Weight 129.00 lb Heart Rate 88 /min O2 % BldC Oximetry 98 % Results Description No Information Procedures Description No Information Plan of Care No Information Available
[2017-12-12] MEDS ORDERED: Albuterol/Ipratropium NEB.SOL* Albuterol 2.5 MG/Ipratropium 0.5 MG 3 ML INH ONE ×2 (19:09→20:54)
[2017-12-12] MEDS ORDERED: methylPREDNISolone 125 MG* 2 ML VIAL IV ONE (19:09)
[2017-12-12 19:38] LABS: Hematocrit 44 % (35-47); Hemoglobin 14.8 g/dl (12.0-16.0); Mean Corpuscular HGB Conc 34 g/dl (31-36); Mean Corpuscular Hemoglobin 31 pg (27-31); Mean Corpuscular Volume 91 fL (80-97); Mean Platelet Volume 7.9 um3 (7.4-10.4); Platelet Count 293 10^3/ul (150-450); Red Cell Distribution Width 13 % (10.5-15); White Blood Count 14.4 10^3/ul (3.5-10.8)
[2017-12-12 19:57] LABS: ABS Basophils 0.1 10^3/ul (0-0.2); ABS Eosinophils 1.6 10^3/ul (0-0.6); ABS Lymphocytes 2.6 10^3/ul (1.0-4.8); ABS Monocytes 0.8 10^3/ul (0-0.8); ABS Neutrophils 9.3 10^3/ul (1.5-7.7); ABS Nucleated RBC 0 10^3/ul; Lymphocyte % 18.1 % (25-47); Nucleated Red Blood Cells % 0
[2017-12-12 19:58] LABS: EGFR Non-African American 91.3 (>60)
[2017-12-12] MEDS ORDERED: traMADol TAB* 50 MG PO ONE (21:24)
--- NOTE | 2017-12-12 21:45 | ED ---
[place] [facility], scribed for Roshan Rai MD on 12/12/17 at 1902 . Shortness of Breath - HPI Summary HPI Summary: Pt is a 27 y/o F who presents to ED c/o SOB characterized as dyspnea at rest. Symptoms began 1 week ago and she was given a Dx of bronchitis on Tuesday (3 days ago). She is currently taking augmentin, albuterol, Ventolin and tessalon perles. She has been on the augmentin for 3 days and her symptoms are not improved, worsening last night. Also took prednisone for 5 days which did not help. Saw her PCP today where she received a nebulizer treatment and her O2 sat did not improve, so she was sent to [facility]. PMHx asthma and she just started Brio and usually uses her Ventolin and nebulizer which she has been using multiple times a day without improvement. - History of Current Complaint Chief Complaint: EDShortnessOfBreath Time Seen by Provider: 12/12/17 18:47 Hx Obtained From: Patient Onset/Duration: Lasting Weeks - 1 week, Still Present, Worse Since - Last night Dyspnea At: Rest Aggrevating Factors: Nothing Alleviating Factors: Nothing - Allergy/Home Medications Allergies/Adverse Reactions: Allergies Allergy/AdvReac Type Severity Reaction Status Date / Time acetaminophen [From Tylenol] Allergy Vomiting Verified 12/12/17 18:35 codeine Allergy Vomiting Verified 12/12/17 18:35 cortisone Allergy Difficulty Verified 12/12/17 18:35 Breathing shellfish derived Allergy Anaphylatic Verified 12/12/17 18:35 Shock Home Medications: Home Medications Albuterol HFA INHALER* [Ventolin HFA Inhaler*] 1 puff INH Q4H PRN 12/12/17 [ History Confirmed 12/12/17] Albuterol/Ipratropium NEB.KRYSTIN* [Duoneb (Albuterol 2.5 MG/Ipratropium 0.5 MG)] 1 neb INH Q4H PRN 12/12/17 [History Confirmed 12/12/17] Amoxicillin/Clavulanate TAB* [Augmentin TAB 875*] 875 mg PO BID 12/12/17 [ History Confirmed 12/12/17] Benzonatate CAP* [Tessalon 100 MG CAP*] 100 mg PO TID PRN 12/12/17 [History Confirmed 12/12/17] Cetirizine* [ZyrTEC 10 MG TAB*] 10 mg PO QPM 12/12/17 [History Confirmed ] EPINEPHrine SYR* [EPINEPHphrine SYR*] 0.1 mg IM ONCE PRN 12/12/17 [History Confirmed 12/12/17] Fluticasone/Vilanterol MDI(NF) [Breo Ellipta MDI (NF)] 1 puff INH DAILY [History Confirmed 12/12/17] Sertraline* [Zoloft*] 25 mg PO DAILY 12/12/17 [History Confirmed 12/12/17] busPIRone TAB* [Buspar TAB*] 7.5 mg PO BID 12/12/17 [History Confirmed 12/12/17] PMH/Surg Hx/FS Hx/Imm Hx Endocrine/Hematology History: Denies: Hx Anticoagulant Therapy, Hx Diabetes, Hx Thyroid Disease Cardiovascular History: Denies: Hx Congestive Heart Failure, Hx Hypertension, Hx Pacemaker/ICD Respiratory History: Reports: 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 Denies: Hx Chronic Obstructive Pulmonary Disease (COPD) GI History: Denies: Hx Ulcer History: Reports: Hx Kidney Infection, Other Problems/Disorders - frequent UTI Denies: Hx Renal Disease - INFECTIONS Musculoskeletal History: Reports: Hx Arthritis, Hx Back Problems - Chronic low back pain, Other Musculoskeletal History - R hip issues, arthoscopy Aug 2015 and residual disc/numb Sensory History: Reports: Hx Contacts or Glasses Denies: Hx Hearing Aid Opthamlomology History: Reports: Hx Contacts or Glasses Neurological History: Denies: Hx Dementia, Hx Seizures Psychiatric History: Denies: Hx Panic Disorder - Surgical History Surgery Procedure, Year, and Place: HIP SURGERY WITH SCREW FOR IT BAND AND LABRAL TEAR - Immunization History Date of Tetanus Vaccine: up to date Infectious Disease History: No Infectious Disease History: Denies: Hx Clostridium Difficile, Hx Hepatitis, Hx Human Immunodeficiency Virus (HIV), Hx of Known/Suspected MRSA, Hx Shingles, Hx Tuberculosis, Hx Known/ Suspected VRE, Hx Known/Suspected VRSA, History Other Infectious Disease, Traveled Outside the [place] in Last 30 Days - Family History Known Family History: Positive: Diabetes, Renal Disease - Social History Alcohol Use: Weekly Substance Use Type: Reports: None Hx Tobacco Use: No Smoking Status (MU): Never Smoked Tobacco Have You Smoked in the Last Year: No Review of Systems Negative: Fever Positive: Shortness Of Breath All Other Systems Reviewed And Are Negative: Yes Physical Exam - Summary Physical Exam Summary: Appearance: The patient is well-nourished in no acute distress and in no acute pain. She is slightly tremorous. Skin: The skin is warm and dry and skin color reflects adequate perfusion. HEENT: The head is normocephalic and atraumatic. The pupils are equal and reactive. The conjunctivae are clear and without drainage. Nares are patent and without drainage. Mouth reveals moist mucous membranes and the throat is without erythema and exudate. The external ears are intact. The ear canals are patent and without drainage. The tympanic membranes are intact. Neck: the neck is supple with full range of motion and non-tender. There are no carotid bruits. There is no neck vein distension. Respiratory: Chest is non-tender. Lungs are clear to auscultation and breath sounds are symmetrical and equal. Cardiovascular: Heart rate is slightly tachycardic. There is no murmur or rub auscultated. There is no peripheral edema and pulses are symmetrical and equal. Abdomen: The abdomen is soft and non-tender. There are normal bowel sounds heard in all four quadrants and there is no organomegaly palpated. Musculoskeletal: There is no back tenderness noted. Extremities are non-tender with full range of motion. There is good capillary refill. There is no peripheral edema or calf tenderness elicited. Neurological: Patient is alert and oriented to person, place and time. The patient has symmetrical motor strength in all four extremities. Cranial nerves are grossly intact. Deep tendon reflexes are symmetrical and equal in all four extremities. Psychiatric: The patient has an appropriate affect and does not exhibit any anxiety or depression. Triage Information Reviewed: Yes Vital Signs On Initial Exam: Initial Vitals Temp Pulse Resp BP Pulse Ox 97.9 F 102 24 119/78 93 12/12/17 18:35 12/12/17 18:35 12/12/17 18:35 12/12/17 18:35 12/12/17 18:35 Vital Signs Reviewed: Yes Diagnostics - Vital Signs Vital Signs Temp Pulse Resp BP Pulse Ox 12/12/17 18:35 97.9 F 102 24 119/78 93 - Laboratory Lab Results: Lab Results 12/12/17 12/12/17 12/12/17 Range/Units 19:26 19:26 19:26 WBC 14.4 H (3.5-10.8) 10^3/ul RBC 4.80 (4.0-5.4) 10^6/ul Hgb 14.8 (12.0-16.0) g/dl Hct 44 (35-47) % MCV 91 (80-97) fL MCH 31 (27-31) pg MCHC 34 (31-36) g/dl RDW 13 (10.5-15) % Plt Count 293 (150-450) 10^3/ul MPV 7.9 (7.4-10.4) um3 Neut % (Auto) 64.3 (38-83) % Lymph % (Auto) 18.1 L (25-47) % Amelia % (Auto) 5.8 (0-7) % Eos % (Auto) 11.0 H (0-6) % Baso % (Auto) 0.8 (0-2) % Absolute Neuts (auto) 9.3 H (1.5-7.7) 10^3/ul Absolute Lymphs (auto) 2.6 (1.0-4.8) 10^3/ul Absolute Monos (auto) 0.8 (0-0.8) 10^3/ul Absolute Eos (auto) 1.6 H (0-0.6) 10^3/ul Absolute Basos (auto) 0.1 (0-0.2) 10^3/ul Absolute Nucleated RBC 0 10^3/ul Nucleated RBC % 0 D-Dimer, Quantitative < 200 (Less Than 230) ng/mL Sodium 138 L (139-145) mmol/L Potassium 3.7 (3.5-5.0) mmol/L Chloride 99 L (101-111) mmol/L Carbon Dioxide 30 (22-32) mmol/L Anion Gap 9 (2-11) mmol/L BUN 13 (6-24) mg/dL Creatinine 0.77 (0.51-0.95) mg/dL Est GFR ( Amer) 117.5 (>60) Est GFR (Non-Af Amer) 91.3 (>60) BUN/Creatinine Ratio 16.9 (8-20) Glucose 90 (70-100) mg/dL Lactic Acid (0.5-2.0) mmol/L Calcium 10.1 (8.6-10.3) mg/dL Total Bilirubin 0.50 (0.2-1.0) mg/dL AST 26 (13-39) U/L ALT 27 (7-52) U/L Alkaline Phosphatase 70 (34-104) U/L C-Reactive Protein 9.81 H (< 5.00) mg/L Total Protein 7.8 (6.4-8.9) g/dL Albumin 4.6 (3.2-5.2) g/dL Globulin 3.2 (2-4) g/dL Albumin/Globulin Ratio 1.4 (1-3) Beta HCG, Quant < 0.60 mIU/mL 12/12/17 Range/Units 19:26 WBC (3.5-10.8) 10^3/ul RBC (4.0-5.4) 10^6/ul Hgb (12.0-16.0) g/dl Hct (35-47) % MCV (80-97) fL MCH (27-31) pg MCHC (31-36) g/dl RDW (10.5-15) % Plt Count (150-450) 10^3/ul MPV (7.4-10.4) um3 Neut % (Auto) (38-83) % Lymph % (Auto) (25-47) % Amelia % (Auto) (0-7) % Eos % (Auto) (0-6) % Baso % (Auto) (0-2) % Absolute Neuts (auto) (1.5-7.7) 10^3/ul Absolute Lymphs (auto) (1.0-4.8) 10^3/ul Absolute Monos (auto) (0-0.8) 10^3/ul Absolute Eos (auto) (0-0.6) 10^3/ul Absolute Basos (auto) (0-0.2) 10^3/ul Absolute Nucleated RBC 10^3/ul Nucleated RBC % D-Dimer, Quantitative (Less Than 230) ng/mL Sodium (139-145) mmol/L Potassium (3.5-5.0) mmol/L Chloride (101-111) mmol/L Carbon Dioxide (22-32) mmol/L Anion Gap (2-11) mmol/L BUN (6-24) mg/dL Creatinine (0.51-0.95) mg/dL Est GFR ( Amer) (>60) Est GFR (Non-Af Amer) (>60) BUN/Creatinine Ratio (8-20) Glucose (70-100) mg/dL Lactic Acid 1.2 (0.5-2.0) mmol/L Calcium (8.6-10.3) mg/dL Total Bilirubin (0.2-1.0) mg/dL AST (13-39) U/L ALT (7-52) U/L Alkaline Phosphatase (34-104) U/L C-Reactive Protein (< 5.00) mg/L Total Protein (6.4-8.9) g/dL Albumin (3.2-5.2) g/dL Globulin (2-4) g/dL Albumin/Globulin Ratio (1-3) Beta HCG, Quant mIU/mL Result Diagrams: 12/12/17 19:26 12/12/17 19:26 Lab Statement: Any lab studies that have been ordered have been reviewed, and results considered in the medical decision making process. Re-Evaluation - Re-Evaluation First Eval Re-Evaluation Time: 21:20 Change: Improved Comment: Pt's symptoms have improved. Discussed D/C plan. Course/Dx - Course Course Of Treatment: Ms. Banks has been on Augmentin for 2 days for a bronchitis and asthma exacerbation but feels worse. She was on prednision for a few days but that finished 3 days ago. She improved here with treatment and I think she need s to be on steroids a little longer. - Diagnoses Provider Diagnoses: Bronchitis, Asthma exacerbation Discharge - Sign-Out/Discharge Documenting (check all that apply): Discharge - Discharge - Discharge Plan Condition: Stable Disposition: HOME Prescriptions: methylPREDNISolone [Medrol Dosepak 4 MG*] 4 mg PO .SEE THEO INSTRUCTION #1 tab traMADol TAB* [Ultram*] 50 mg PO Q6HR PRN #20 tab MDD 4 PRN Reason: Pain Patient Education Materials: Asthma (ED), Acute Bronchitis (ED) Forms: *Work Release Referrals: Fede Saul MD [Primary Care Provider] - 3 Days Additional Instructions: RETURN TO EMERGENCY DEPARTMENT FOR ANY RETURNING OR WORSENING SYMPTOMS. - Billing Disposition and Condition Condition: STABLE Disposition: HOME The documentation as recorded by the [place] accurately reflects the service I personally performed and the decisions made by me, Roshan Rai MD.
[2017-12-12 21:46] VITALS: BP 102/54
== END 2017-12-12 21:46 | disposition home or self-care (01) ==
LOC: ED 18:31
DX: J45.901 Unspecified asthma with (acute) exacerbation (principal)
CPT/HCPCS: 36415; 80053; 83605; 84702; 85025; 85379; 86140; 87040; 94640; 96374; 99283; A9270-GY; J2930

== ENCOUNTER 2017-12-14 09:09 | Emergency (ER) | payer BC ==
[2017-12-14 09:50] LABS: Hematocrit 38 % (35-47); Hemoglobin 12.8 g/dl (12.0-16.0); Mean Corpuscular HGB Conc 33 g/dl (31-36); Mean Corpuscular Hemoglobin 30 pg (27-31); Mean Corpuscular Volume 91 fL (80-97); Mean Platelet Volume 7.7 um3 (7.4-10.4); Platelet Count 230 10^3/ul (150-450); Red Blood Count 4.19 10^6/ul (4.0-5.4); Red Cell Distribution Width 12 % (10.5-15); White Blood Count 13.5 10^3/ul (3.5-10.8)
[2017-12-14] MEDS ORDERED: Ketorolac INJ* 60 MG/2 ML VIAL IM ONE (10:04)
[2017-12-14] MEDS ORDERED: Albuterol/Ipratropium NEB.SOL* Albuterol 2.5 MG/Ipratropium 0.5 MG 3 ML INH ONE (10:05)
[2017-12-14] MEDS ORDERED: methylPREDNISolone 125 MG* 2 ML VIAL IM ONE (10:07)
[2017-12-14 10:18] LABS: ABS Basophils 0 10^3/ul (0-0.2); ABS Eosinophils 0.8 10^3/ul (0-0.6); ABS Lymphocytes 3.6 10^3/ul (1.0-4.8); ABS Monocytes 0.9 10^3/ul (0-0.8); ABS Neutrophils 8.1 10^3/ul (1.5-7.7)
[2017-12-14 10:21] LABS: EGFR Non-African American 92.7 (>60); Monocytes % 7 % (0-7)
--- OUTSIDE RECORDS SUMMARY | 2017-12-14 10:23 | XMS REPORT ---
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 Cigarette Use Never Smoked Cigarettes ETOH Use Occasionally consumes alcohol Recreational Drug Use Denies Drug Use Smoking Patient has never smoked Enjoy Exercising Enjoys exercising Currently Active Patient is currently sexually active Contraceptive Methods Yocasta IUD Allergies, Adverse Reactions, Alerts Date Description Reaction Status Severity Comments 05/29/2014 Seafood Anaphylaxis active 05/29/2014 Acetaminophen Nausea and Vomiting active 05/29/2014 Codeine Nausea and Vomiting active 06/07/2017 Cortisone active 12/05/2017 Dust Mites active Medications Medication Date Status Form Strength Qnty SIG Indications Ordering Provider Buspirone HCL 12/13 Active Tablets 15mg 60tab 1 tab by F41.9 Jvaed /Joanie s mouth twice [place] daily 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 Astepro 09/04 Active Solution 0.15% 30uni spray 2 ts sprays into [facility], each M.D., nostril one R.D. time daily Sertraline HCL 08/16 Active Tablets 25mg 30tab 1 by mouth F41.9 Javed s every day Darryl III, REC[employer]STRU[employer]IVE D[employer]IST-C Ibuprofen 03/23 Active Tablets 600mg 120ta take one M54.9 bs tablet by Stephnaie, mouth 4 [employer]ONSTRU[employer]IVE DENTIST-C times daily with food as needed for pain Lidoderm 09/27 Active Patches 5% 30uni apply to 733.6 ts affected [facility] for 12 M.D. hours a day Epipen 2-Alan Active Solution 0.3mg/0.3 1unit use as Unknown /0000 Auto-Inject ML s directed for bee-sting allergy and call 911 Yocasta Active IUD 13.5mg jul 2016 Unknown /0000 Prednisone 12/05 Hx Tablets 50mg 5tabs 1 tablet daily for 5 [place] - days , 12/12 Bactrim DS 11/07 Hx Tablets 800-160mg 14tab 1 by mouth L60.0 Concepción /2018 s twice a day Shortle, - x 7 days EN[employer]ELOPE MAKER 12/05 Augmentin 08/30 Hx Tablets 875-125mg 14tab 1 tab by J01.90 Concepción s mouth twice Shortle, - a day for 7 EN[employer]ELOPE MAKER Buspirone HCL 08/16 Hx Tablets 7.5mg 60tab take one F41.9 Javed s tablet by [place] - mouth twice III, 12/13 a day for [facility]- anxiety Sertraline HCL 07/19 Hx Tablets 50mg 30tab 1 by mouth F41.9 Javed /2016 s every day Darryl - III, 08/16 [facility]-C Sertraline HCL 07/05 Hx Tablets 25mg 14tab 1 by mouth F41.9 Javed /2016 s every day [place] - III, 07/19 [facility]- Escitalopram 06/07 Hx Tablets 10mg 30tab 1 by mouth F41.9 Javde Oxalate s every day Darryl - III, 07/05 [facility]- Protonix 06/[address] 20mg 30tab 1 by mouth Marion /2015 s every day Stephanie, - [facility]- 05/08 Cyclobenzaprine 03/23 Hx Tablets 5mg 30tab 1-2 by M54.9 Marion HCL s mouth three Stephanie, - times a day [facility]- 05/08 for spasm, may cause drowsiness Pataday 02/22 Hx Solution 0.2% 2.500 instill one H10.13 wnti ml drop in [place]. [place], - each eye [facility]-C 05/08 Rhinocort Aqua 02/15 Hx Suspension 32mcg/Act 1unit 1 H10.44 Fede s intranasal [place] - puff daily , 05/08 Cetirizine HCL 02/05 Hx Tablets 10mg 30tab 1 by mouth H10.44 Fede s every day Carlitoetpetr - , 05/08 Loperamide HCL 10/29 Hx Tablets 2mg 30tab 1 tab by A09 Fede s mouth three [place] - times a day , 05/08 as needed Prednisone 01/17 Hx Tablets 20mg 10tab take 2 tabs 726.71 s by mouth Stephanie, - every day x [employer]ONSTRU[employer]IVE DENTIST-C 03/23 Hydrocodone-Acet 01/17 Hx Tablets 5-325mg 20twe 1 by mouth nty q4 - 6 Stephanie, - hours as RECONSTRUCTIVE DENTIST-C 03/23 Idbenzonatate 10/01 Hx Capsules 200mg 30cap 1 cap po s tid prn Stephanie, - cough RECONSTRUCTIVE DENTIST-C 03/23 Prednisone 09/27 Hx Tablets 20mg qs 2 po qd x 4 493.92 days, then Chan, - 1 po qd x 4 M.D. 01/17 days, 09/06 po qd x 2 days Amoxicillin/Clav 09/25 Hx Tablets 875-125mg 20tab 1 tablet 466.0 s twice a day Cristino Sandhu - x 10 days RECONSTRUCTIVE DENTIST-C 10/03 Benzonatate 09/25 Hx Capsules 100mg 45cap 1 by mouth 466.0 s three times Stephanie, - a day as RECONSTRUCTIVE DENTIST-C 10/01 cough Amoxicillin/Clav 05/29 Hx Tablets 875-125mg 20tab 1 tablet 382.9 Marion s twice a day Stephanie Potassium - x 10 days [employer]ONSTRUCTIVE DENTIST-C 10/03 Nuvaring 00 Hx Ring 0.12-0.01 3unit insert one Unknown /0000 5mg/24HR s ring into - the vagina, 05/08 monthly Albuterol HFA 00 Hx 90mcg/Inh 1unit 2 Unknown /0000 s inhalation - q4-6 hours 12/05 as needed shortness of breath, cough, wheeze Immunizations CPT Code Status Date Vaccine Lot # [id number] Given 05/20/2017 Influenza Virus Vaccine, Quadrivalent, 3 Yr > Quad, Preserv Free 52518 Given 02/06/2016 Pneumovax 23 (PPSV23) 65+ years or high risk 2 to [id number] 66 year old 01836 Given 12/30/2014 HPV Vaccine, Gardasil [id number] 33644 Given 05/25/2010 Menactra (meningococcal conjugate vaccine) 21410 Given 05/21/2008 HPV Vaccine, Gardasil 73907 Given 02/01/2008 HPV Vaccine, Gardasil 97573 Given 11/27/2007 Hepatitis A (Ped) 2 Dose Schedule 21596 Given 11/23/2006 Hepatitis A (Ped) 2 Dose Schedule 51078 Given 11/18/2005 Tdap (Adacel) 82161 Given 06/23/1997 MMR (Measles,Mumps,Rubella) 77276 Given 06/15/1997 Hep B Vaccine, Ped/Adol Dose 3 Dose (Engerix or Recombivax) 47684 Given 06/13/1997 DTaP (Daptacel) 09155 Given 06/13/1997 Opv (Poliovirus,Oral) 59669 Given 09/14/1996 Hep B Vaccine, Ped/Adol Dose 3 Dose (Engerix or Recombivax) 22703 Given 06/27/1996 Hep B Vaccine, Ped/Adol Dose 3 Dose (Engerix or Recombivax) 74142 Given 09/23/1993 Opv (Poliovirus,Oral) 34942 Given 09/23/1993 MMR (Measles,Mumps,Rubella) 11324 Given 09/23/1993 DTaP (Daptacel) 17925 Given 09/23/1993 Hib (Hemophilus Influenza B) (Acthib) 92608 Given 1992 DTaP (Daptacel) 96943 Given 1992 Hib (Hemophilus Influenza B) (Acthib) 27473 Given 1992 Hib (Hemophilus Influenza B) (Acthib) 95687 Given 1992 Opv (Poliovirus,Oral) 79739 Given 1992 DTaP (Daptacel) 33563 Given 1992 Opv (Poliovirus,Oral) 93478 Given 1992 DTaP (Daptacel) 28530 Given 1990 Hib (Hemophilus Influenza B) (Acthib) 14670 Given Unknown DTaP (Daptacel) 75630 Refused 08/26/2017 Influenza Virus Vaccine, Quadrivalent, 3 Yr > Quad, Preserv Free Vital Signs Date Vital Result Comment 12/13/2017 Weight 128.00 lb Weight in kg's 58.061 BP Systolic 104 mmHg BP Diastolic 68 mmHg Heart Rate 101 /min Body Temperature 98.9 F Respiratory Rate 17 /min Height 63 inches 5'3" BMI (Body Mass Index) 22.7 kg/m2 O2 % BldC Oximetry 95 % 12/12/2017 Weight 127.00 lb Weight in kg's [...] Test Result H/L Range Note Laboratory test 12/12/2017 D Dimer Quantitative < 200 ng/mL Less Than 230 1 finding Lactic Acid 1.2 mmol/L 0.5-2.0 2 CBC Auto Diff 12/12/2017 White Blood Count 14.4 10^3/uL High 3.5-10.8 Red Blood Count 4.80 10^6/uL 4.0-5.4 Hemoglobin 14.8 g/dL 12.0-16.0 Hematocrit 44 % 35-47 Mean Corpuscular Volume 91 fL 80-97 Mean Corpuscular Hemoglobin 31 pg 27-31 Mean Corpuscular HGB Conc 34 g/dL 31-36 Red Cell Distribution Width 13 % 10.5-15 Platelet Count 293 10^3/uL 150-450 Mean Platelet Volume 7.9 um3 7.4-10.4 Abs Neutrophils 9.3 10^3/uL High 1.5-7.7 Abs Lymphocytes 2.6 10^3/uL 1.0-4.8 Abs Monocytes 0.8 10^3/uL 0-0.8 Abs Eosinophils 1.6 10^3/uL High 0-0.6 Abs Basophils 0.1 10^3/uL 0-0.2 Abs Nucleated RBC 0 10^3/uL Granulocyte % 64.3 % 38-83 Lymphocyte % 18.1 % Low 25-47 Monocyte % 5.8 % 0-7 Eosinophil % 11.0 % High 0-6 Basophil % 0.8 % 0-2 Nucleated Red Blood Cells % 0 Comp Metabolic Panel 12/12/2017 Sodium 138 mmol/L Low 139-145 Potassium 3.7 mmol/L 3.5-5.0 Chloride 99 mmol/L Low 101-111 Co2 Carbon Dioxide 30 mmol/L 22-32 Anion Gap 9 mmol/L 2-11 Glucose 90 mg/dL 70-100 Blood Urea Nitrogen 13 mg/dL 6-24 Creatinine 0.77 mg/dL 0.51-0.95 BUN/Creatinine Ratio 16.9 8-20 Calcium 10.1 mg/dL 8.6-10.3 Total Protein 7.8 g/dL 6.4-8.9 Albumin 4.6 g/dL 3.2-5.2 Globulin 3.2 g/dL 2-4 Albumin/Globulin Ratio 1.4 1-3 Total Bilirubin 0.50 mg/dL 0.2-1.0 Alkaline Phosphatase 70 U/L 34-104 Alt 27 U/L 7-52 Ast 26 U/L 13-39 Egfr Non- 91.3 >60 Egfr 117.5 >60 3 Laboratory test finding 12/12/2017 C Reactive Protein 9.81 mg/L High < 5.00 4 HCG < 0.60 mIU/mL 5 Laboratory test finding 11/07/2017 Wound Culture/Sensi SEE RESULT BELOW 6 Laboratory test finding 06/29/2016 Urine Culture And SEE RESULT BELOW 7 Sensitivities Urinalysis Profile 06/29/2016 Urine Color Yellow Urine Appearance Clear Urine Specific [place] 1.023 1.010-1.030 Urine pH 6.0 5-9 Urine [...] 5 5-6 Urine Blood NEG Neg Specific [place] 1.02 1.01-1.02 Urine Ketones NEG Neg Urine [...] Color Yellow Urine Appearance Cloudy Urine Specific [place] 1.019 1.010-1.030 Urine pH 6.0 5-9 Urine [...] Reactive Protein 5.79 mg/L High < 5.00 8 HCG < 0.60 mIU/mL 9 TSH (Thyroid Stimulating Horm) 2.08 mcIU/mL 0.34-5.60 Free T3 3.90 pg/mL 2.5-3.9 Free T4 0.68 ng/dL 0.61-1.12 Urine Culture SEE RESULT BELOW 10 Laboratory test 03/10/2015 Gardnerella/Yeast: Vaginal SEE RESULT BELOW 11 finding Dna GC/Chlamydia 03/10/2015 Chlamydia trachomatis Rna Negative Negative Amplified Rna Neisseria gonorrhoeae (GC) Rna Negative Negative 12 Laboratory test finding 03/10/2015 Trichomonas vaginalis Rna Negative Negative 13 Urinalysis Profile 03/10/2015 Urine Color Straw Urine Appearance Clear Urine Specific [place] 1.009 Low 1.010-1.030 Urine pH 5.0 5-9 [...] Egfr Non- 101.3 >60 Egfr 130.3 >60 14 Laboratory test finding 03/10/2015 Lipase 23 U/L 11.0-82.0 C Reactive Protein 4.24 mg/L < 5.00 15 Serum HCG Qualitative Negative Negative Laboratory test finding 03/10/2015 Lactic Acid 0.8 mmol/L 0.5-2.2 Blood Culture SEE RESULT BELOW 16 CBC Auto Diff 12/02/2014 White Blood Count [...] Egfr Non- 110.1 >60 Egfr 141.5 >60 17 Laboratory test finding 12/02/2014 Serum Negative Negative 18 CBC Auto Diff 11/05/2014 White Blood Count [...] Laboratory test finding 11/05/2014 Serum Negative Negative 19 D Dimer Quantitative < 200 ng/mL Less Than 230 20 Comp Metabolic Panel 11/05/2014 Sodium 137 mmol/L [...] Egfr Non- 83.6 >60 Egfr 107.6 >60 21 Laboratory test 11/05/2014 Lipase 21 U/L 11.0-82.0 finding Laboratory test 10/03/2014 D Dimer Quantitative < 200 Less Than 230 22 finding ng/mL Comp Metabolic Panel 10/03/2014 Sodium [...] Egfr Non- 108.2 >60 Egfr 139.1 >60 23 Laboratory test finding 10/03/2014 Troponin I 0.00 ng/mL <0.03 24 C Reactive Protein < 1.00 mg/L < 5.00 25 Serum Negative Negative 26 Creatine Kinase 32 U/L 10-223 CKMB 10/03/2014 [...] Protein < 1.00 mg/L &lt ; 5.00 27 Comp Metabolic Panel 11/10/2013 Sodium 140 mmol/L [...] Egfr Non- 111.1 >60 Egfr 142.9 >60 28 CBC Auto Diff 11/10/2013 White Blood Count [...] Quantitative < 200 ng/mL Less Than 230 29 finding Lactic Acid 1.8 mmol/L 0.5-2.2 Serum Negative Negative 30 B Type Natriuretic Peptide 51 pg/mL 31 Comp Metabolic Panel 11/09/2013 Sodium 141 mmol/L [...] Egfr Non- 93.2 >60 Egfr 119.9 >60 32 Laboratory test finding 11/09/2013 Creatine Kinase 76 U/L 10-223 CKMB 11/09/2013 CKMB ng/mL 1.2 ng/mL 0.6-6.3 Laboratory test finding 11/09/2013 Troponin I 0.00 ng/mL <0.03 33 TSH (Thyroid Stimulating Horm) 1.34 IU/mL 0.34-5.60 1 Please note: The following may produce a false positive D Dimer test: - Rheumatoid factor greater than 60 IU/ml - Plasma hemoglobin greater than 0.05 gm/dl - Bilirubin greater than 50 mg/dl - Lipids greater than 1000 mg/dl - FDP greater than 20 ug/ml 2 [facility] Severe Sepsis and Septic Shock Management Bundle Measure requires all lactic acids initially measuring >2.0 mmol/L be repeated. 3 Because ethnic data is not always readily [...] 15-29 5 Kidney failure <15 (or dialysis) 4 Acute inflammation: >10.00 5 <5.0 Negative 5.0 - 25.0 Indeterminate (Repeat testing recommended after 72 hours) >25.0 Positive Perimenopausal women can display HCG levels of up to 20 mIU/mL 6 SEE RESULT BELOW Name: WILFRED FRENCH : [address]: Concepción Duval EN[employer]ELOPE MAKER Acct: [id number] Unit: [id number] AGE: 27 Location: [facility] Re11/07/17 SEX: F Status: REG REF SPEC: [id number] DEB: 11/07/[address] [facility] [address]: Concepción Duval [employer]OPE MAKER REQ: [id number] RECD: 11/07/17 STATUS: COMP _ SOURCE: TOE SPDESC: ORDERED: Culture Stain COMMENTS: Submitted to [facility] via [employer] system by [email or web address] at 1351 on 11/08/17. Verbal STREP A S.A. to JACKIE Brown [phone] by [email or web address] at 1203 on 11/08/17. Results read back accurately. [id number] Specimen Description Left great toe Procedure Result [...] CONTINUED ON NEXT PAGE DEPARTMENT OF PATHOLOGY, [address] [place] [address] Shai Pedraza M.D. Director [facility] # [id number] Patient: WILFRED FRENCH [id number] (Continued) Specimen: [id number] Collected: 11/07/17 Received: 11/07/17 (Continued) Procedure Result [...] CONTINUED ON NEXT PAGE DEPARTMENT OF PATHOLOGY, [address] [place] [address] Shai Pedraza M.D. Director [facility] # [id number] Patient: WILFRED FRENCH [id number] (Continued) Specimen: [id number] Collected: 11/07/17 Received: 11/07/17 (Continued) Procedure Result Reported Site Wound/Misc Culture Final (continued) * These antibiotics are not available in the [facility] Formulary Contact the Microbiology Department for any additional antibiotic reporting. * - Main Lab . END OF REPORT DEPARTMENT OF PATHOLOGY, [address] [place] [address] Shai Pedraza M.D. Director [facility] # [id number] 7 SEE RESULT BELOW Name: GILLIANWILFRED : [address]: Javed Andrews III EN[employer]OPE MAKER Acct: [id number] Unit: [id number] AGE: 26 Location: [facility] Re06/29/16 SEX: F Status: REG REF SPEC: [id number] DEB: 06/29/[address]: Javed Andrews III ENVELOPE MAKER REQ: [id number] RECD: 06/29/16 STATUS: COMP _ SOURCE: URINE SPDESC: ORDERED: Urine Culture COMMENTS: [id number] Procedure Result Reported Site Urine Culture Final 06/30/16- 1606 ML No Growth (<1,000 CFU/mL) * ML - MAIN LAB ([facility]) . END OF REPORT * ML=Testing performed at Main Lab DEPARTMENT OF PATHOLOGY, [address] [place] [address] Shai Pedraza M.D. Director [facility] # [id number] 8 Acute inflammation: >10.00 9 <5.0 Negative 5.0 - 25.0 Indeterminate (Repeat testing recommended after 72 hours) >25.0 Positive Perimenopausal women can display HCG levels of up to 20 mIU/mL 10 SEE RESULT BELOW Name: WILFRED FRENCH : [address]: Ely Coronado MD Acct: [id number] Unit: [id number] AGE: 25 Location: ED Re06/14/16 SEX: F Status: DEP ER SPEC: [id number] DEB: 06/14/[address]: Ely Coronado MD REQ: [id number] RECD: 06/14/16 STATUS: SAMRA NINO DR: Marion Sandhu ENVELOPE MAKER _ SOURCE: URINE SPDESC: ORDERED: Urine Culture Procedure Result Reported Site Urine Culture Final 06/16/16815 ML No growth of clinically significant organisms * ML - MAIN LAB ([facility]) . END OF REPORT * ML=Testing performed at Main Lab DEPARTMENT OF PATHOLOGY, [address] [place] [address] Shai Pedraza M.D. Director [facility] # [id number] 11 SEE RESULT BELOW Name: WILFRED FRENCH : [address]: Dylon Reyes MD Acct: [id number] Unit: [id number] AGE: 24 Location: ED Re03/10/15 SEX: F Status: DEP ER SPEC: [id number] DEB: 03/10/[address]: Shilpi ULRICH REQ: [id number] RECD: 03/10/15 STATUS: SAMRA NINO DR: Dylon Sandhu ENVELOPE MAKER _ SOURCE: VAGINAL SPDESC: ORDERED: Jarrett,Yeast DNA [...] or failure. * ML - [facility]) . END OF REPORT * ML=Testing performed at Main Lab DEPARTMENT OF PATHOLOGY, [address] [place] [address] Shai Pedraza M.D. Director [facility] # [id number] 12 Female urine specimens have been self-validated by [facility] and have been granted conditional assay approval by [facility]. 13 [facility] Specimen Source: cervix GC/Chlamydia Source?: Endocervical Trichomonas Source: Endocervical 14 Because ethnic data is not always readily [...] 15-29 5 Kidney failure <15 (or dialysis) 15 Acute inflammation: >10.00 16 SEE RESULT BELOW Name: WILFRED FRENCH : [address]: Dylon Reyes MD Acct: [id number] Unit: [id number] AGE: 24 Location: ED Re03/10/15 SEX: F Status: DEP ER SPEC: [id number] DEB: 03/10/[address]: Shilpi ULRICH REQ: [id number] RECD: 03/10/15 STATUS: SAMRA NINO DR: Dylon Sandhu EN[employer]ELOPE MAKER _ SOURCE: BLOOD,VENO SPDESC: ORDERED: Blood Cult Procedure Result Verified Site Aerobic Culture Bottle Final 03/15/15- 1718 ML No Growth Day 5 Anaerobic Culture Bottle Final 03/15/15- 1718 ML No Growth Day 5 * ML - MAIN LAB ([facility]) . END OF REPORT * ML=Testing performed at Main Lab DEPARTMENT OF PATHOLOGY, [address] [place] [address] Shai Pedraza M.D. Director [facility] # [id number] 17 Because ethnic data is not always readily [...] 15-29 5 Kidney failure <15 (or dialysis) 18 This test detects intact HCG only and is indicated for the early detection of . 19 This test detects intact HCG only and is indicated for the early detection of . 20 Please note: The following may produce a false positive D Dimer test: - Rheumatoid factor greater than 60 IU/ml - Plasma hemoglobin greater than 0.05 gm/dl - Bilirubin greater than 50 mg/dl - Lipids greater than 1000 mg/dl - FDP greater than 20 ug/ml 21 Because ethnic data is not always readily [...] 15-29 5 Kidney failure <15 (or dialysis) 22 Please note: The following may produce a false positive D Dimer test: - Rheumatoid factor greater than 60 IU/ml - Plasma hemoglobin greater than 0.05 gm/dl - Bilirubin greater than 50 mg/dl - Lipids greater than 1000 mg/dl - FDP greater than 20 ug/ml 23 Because ethnic data is not always [...] 5 Kidney failure <15 (or dialysis) 24 Reference Range and Interpretation: TnI (ng/mL) Interpretation Less Than 0.03 ng/mL Not supportive of diagnosis of MO 0.03 - 0.50 ng/mL Indeterminate: suggest serial studies if clinically indicated. Greater than 0.5 ng/mL Consistent with diagnosis of MO 25 Acute inflammation: >10.00 26 This test detects intact HCG only and is indicated for the early detection of . 27 Acute inflammation: >10.00 In accordance with FDA guideline, CRP is now reported in mg/L, previous reporting was in mg/dL. 28 Because ethnic data is not always readily [...] 15-29 5 Kidney failure <15 (or dialysis) 29 Please note: The following may produce a false positive D Dimer test: - Rheumatoid factor greater than 60 IU/ml - Plasma hemoglobin greater than 0.05 gm/dl - Bilirubin greater than 50 mg/dl - Lipids greater than 1000 mg/dl - FDP greater than 20 ug/ml 30 This test detects intact HCG only and is indicated for the early detection of . 31 >100 to <200 pg/mL: likely compensated congestive heart failure (CHF) 200 to 400 pg/mL: likely moderate CHF >400 pg/mL: likely moderate to severe CHF [facility] 32 Because ethnic data is not always readily [...] 15-29 5 Kidney failure <15 (or dialysis) 33 Reference Range and Interpretation: TnI (ng/mL) Interpretation Less Than 0.03 ng/mL Not supportive of diagnosis of MO 0.03 - 0.50 ng/mL Indeterminate: suggest serial studies if clinically indicated. Greater than 0.5 ng/mL Consistent with diagnosis of MO Procedures Description No Information Encounters Type Date Location Provider CPT E/M Dx Office Visit 12/05/2017 4:30p [place] [address] J45.901 Office Visit 11/09/2017 5:00p [place] [address] L60.0 Office Visit 11/07/2017 4:00p [place] [address] L60.0 Office Visit 09/13/2017 4:30p Main Office Javed Andrews III RECONSTRUCTIVE DENTIST-C 72906 F41.9 F33.9 Office Visit 09/09/2017 4:30p [place] [address] J01.90 Office Visit 08/30/2017 2:15p [place] [address] J01.90 Office Visit 08/26/2017 1:30p [place] [address] J06.9 Office Visit 08/16/2017 4:30p Main Office Javed Andrews III RECONSTRUCTIVE DENTIST-C 72243 F41.9 F33.9 Office Visit 07/19/2017 4:30p Main Office Javed Andrews III RECONSTRUCTIVE DENTIST-C 67919 F41.9 F33.9 J06.9 Office Visit 07/05/2017 4:30p Main Office Javed Andrews III, RECONSTRUCTIVE DENTIST-C 03361 F41.9 F33.9 Office Visit 06/07/2017 4:30p Main Office Javed Andrews III, RECONSTRUCTIVE DENTIST-C 49944 F41.9 F33.9 Office Visit 06/29/2016 4:30p Main Office Javed Andrews III RECONSTRUCTIVE DENTIST-C 27336 R10.9 Office Visit 06/21/2016 4:30p Main Office Marion Sandhu RECONSTRU[employer]IVE DENTIST-C 23659 R13.10 Office Visit 03/23/2016 10:30a Main Office CASSIE Payne-C 51367 M54.9 Office Visit 02/23/2016 3:30p Main Office JANA CherryP-C 79205 H10.13 Office Visit 02/16/2016 5:15p [place] [address] H10.44 Office Visit 02/06/2016 8:00a [place] [address] H10.44 J45.998 Z23 Office Visit 10/29/2015 10:00a [place] [address] A09 Office Visit 01/17/2015 3:15p Main Office CASSIE Payne-C 68146 726.71 Office Visit 10/03/2014 2:45p Main Office Ginger Cardona M.D. 60966 786.50 Office Visit 09/27/2014 1:45p Main Office Alexis Chan M.D. 15396 466.0 733.6 493.92 Office Visit 09/25/2014 9:30a Main Office CASSIE Payne-C 76740 466.0 Office Visit 07/29/2014 1:45p Main Office SANTIAGO Payne 11476 461.9 Office Visit 05/29/2014 10:30a Main Office CASSIE Payne-C 90875 382.9 461.9 Plan of Care Future Appointment(s):06/20/2018 4:30 pm - CASSIE Harrell III-C at Main Dnsuog1112/13/2017 - Javed Andrews III, RECONSTRUCTIVE DENTIST-CZ00.00 Encntr for general adult medical exam w/o abnormal findingsComments:Exam wnl, except for continued wheezing. She is due for a neb treatment and plans to do one at home. Last Tetanus booster was 2014.F41.9 Anxiety disorder, unspecifiedNew Medication: Buspirone HCL 15 mgComments:Will increase Buspar today. She will follow up in 6 months, sooner with concerns.Follow up:6 month lzxgdcfW77.9 Major depressive disorder, recurrent, unspecifiedComments:No changes to Sertraline today.
--- NOTE | 2017-12-14 10:57 | RAD ---
INDICATION: Cough and chest pain. COMPARISON: Comparison is made with a prior study from December 08, 2017. TECHNIQUE: Dual-energy PA and lateral views of the chest were obtained. FINDINGS: The heart is within normal limits in size. Mediastinal and hilar contours appear within normal limits. The lungs are underinflated and clear. No pleural effusion or pneumothorax is seen. IMPRESSION: NO EVIDENCE FOR ACTIVE CARDIOPULMONARY DISEASE.
[2017-12-14] MEDS ORDERED: Potassium Chlor TAB* 20 MEQ TAB.ER PO ONE (11:15)
--- NOTE | 2017-12-14 11:41 | ED ---
Respiratory - HPI Summary HPI Summary: 27-year-old female presents with chest pain for the past couple days. She states she has been having cough for the past week. She has history of asthma. She states she has been using an inhaler more frequently. She was placed on Augmentin and prednisone. States her shortness of breath is worse. She denies any fevers. She admits occasional sore throat. She denies any bowel pain. She vomited a couple times after coughing. She denies any headache. She is nonsmoker. She denies any pain or swelling in her calf muscles. She is on control. pain does not change with positional changes. pain is reproducible. She states the pain feels like a burn in the center of her chest. - History of Current Complaint Chief Complaint: EDChestPainROMI Stated Complaint: CHEST PAIN,DIFF BREATHING Time Seen by Provider: 12/14/17 09:23 Pain Intensity: 4 Sputum Amount: Scant - Allergy/Home Medications Allergies/Adverse Reactions: Allergies Allergy/AdvReac Type Severity Reaction Status Date / Time acetaminophen [From Tylenol] Allergy Vomiting Verified 12/14/17 09:26 codeine Allergy Vomiting Verified 12/14/17 09:26 cortisone Allergy Difficulty Verified 12/14/17 09:26 Breathing shellfish derived Allergy Anaphylatic Verified 12/14/17 09:26 Shock PMH/Surg Hx/FS Hx/Imm Hx Endocrine/Hematology History: Denies: Hx Anticoagulant Therapy, Hx Diabetes, Hx Thyroid Disease Cardiovascular History: Denies: Hx Congestive Heart Failure, Hx Hypertension, Hx Pacemaker/ICD Respiratory History: Reports: 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 Denies: Hx Chronic Obstructive Pulmonary Disease (COPD) GI History: Denies: Hx Ulcer History: Reports: Hx Kidney Infection, Other Problems/Disorders - frequent UTI Denies: Hx Renal Disease - INFECTIONS Musculoskeletal History: Reports: Hx Arthritis, Hx Back Problems - Chronic low back pain, Other Musculoskeletal History - R hip issues, arthoscopy Aug 2015 and residual disc/numb Sensory History: Reports: Hx Contacts or Glasses Denies: Hx Hearing Aid Opthamlomology History: Reports: Hx Contacts or Glasses Neurological History: Denies: Hx Dementia, Hx Seizures Psychiatric History: Denies: Hx Panic Disorder - Surgical History Surgery Procedure, Year, and Place: HIP SURGERY WITH SCREW FOR IT BAND AND LABRAL TEAR - Immunization History Date of Tetanus Vaccine: up to date Infectious Disease History: No Infectious Disease History: Denies: Hx Clostridium Difficile, Hx Hepatitis, Hx Human Immunodeficiency Virus (HIV), Hx of Known/Suspected MRSA, Hx Shingles, Hx Tuberculosis, Hx Known/ Suspected VRE, Hx Known/Suspected VRSA, History Other Infectious Disease, Traveled Outside the [place] in Last 30 Days - Family History Known Family History: Positive: None - reviewed & noncontributory, Diabetes, Renal Disease - Social History Alcohol Use: Occasionally Substance Use Type: Reports: None Hx Tobacco Use: No Smoking Status (MU): Never Smoked Tobacco Have You Smoked in the Last Year: No Review of Systems Negative: Fever Positive: Chest Pain Positive: Shortness Of Breath, Cough Negative: Abdominal Pain All Other Systems Reviewed And Are Negative: Yes Physical Exam Vital Signs On Initial Exam: Initial Vitals Temp Pulse Resp BP Pulse Ox 97.8 F 74 16 115/72 98 12/14/17 09:16 12/14/17 09:16 12/14/17 09:16 12/14/17 09:16 12/14/17 09:16 Diagnostics - Vital Signs Vital Signs Temp Pulse Resp BP Pulse Ox 12/14/17 10:30 85 107/68 100 12/14/17 10:18 73 16 95 12/14/17 10:00 77 96/60 95 12/14/17 09:32 88 98 12/14/17 09:30 118/79 12/14/17 09:29 20 12/14/17 09:16 97.8 F 74 16 115/72 98 - Laboratory Lab Results: Lab Results 12/14/17 12/14/17 12/14/17 Range/Units 09:42 09:42 09:42 WBC 13.5 H (3.5-10.8) 10^3/ul RBC 4.19 (4.0-5.4) 10^6/ul Hgb 12.8 (12.0-16.0) g/dl Hct 38 (35-47) % MCV 91 (80-97) fL MCH 30 (27-31) pg MCHC 33 (31-36) g/dl RDW 12 (10.5-15) % Plt Count 230 (150-450) 10^3/ul MPV 7.7 (7.4-10.4) um3 Neut % (Auto) Not Reportable Lymph % (Auto) Not Reportable [place] % (Auto) Not Reportable Eos % (Auto) Not Reportable Baso % (Auto) Not Reportable Absolute Neuts (auto) 8.1 H (1.5-7.7) 10^3/ul Absolute Lymphs (auto) 3.6 (1.0-4.8) 10^3/ul Absolute Monos (auto) 0.9 H (0-0.8) 10^3/ul Absolute Eos (auto) 0.8 H (0-0.6) 10^3/ul Absolute Basos (auto) 0 (0-0.2) 10^3/ul Absolute Nucleated RBC Not Reportable Immature Gran % 2 (0-9) % Neutrophils % 64 (38-83) % Lymphocytes % 20 L (25-47) % Reactive Lymphs % 5 (0-6) % Monocytes % 7 (0-7) % Eosinophils % 2 (0-6) % Basophils % 0 (0-2) % Metamyelocytes % 1 (0-2) % Myelocytes % 1 (0-1) % Nucleated RBC % Not Reportable Abs Neuts (Manual) 8.6 H (1.5-7.7) 10^3/ul Abs Lymphs (Manual) 2.7 (1.0-4.8) 10^3/ul Abs Monocytes (Manual) 0.9 H (0-0.8) 10^3/ul Absolute Eos (Manual) 0.3 (0-0.6) 10^3/ul Abs Basophils (Manual) 0 (0-0.2) 10^3/ul Normal RBC Morphology Normal (Normal) D-Dimer, Quantitative < 200 (Less Than 230) ng/mL Sodium 139 (139-145) mmol/L Potassium 3.1 L (3.5-5.0) mmol/L Chloride 105 (101-111) mmol/L Carbon Dioxide 25 (22-32) mmol/L Anion Gap 9 (2-11) mmol/L BUN 20 (6-24) mg/dL Creatinine 0.76 (0.51-0.95) mg/dL Est GFR ( Amer) 119.3 (>60) Est GFR (Non-Af Amer) 92.7 (>60) BUN/Creatinine Ratio 26.3 H (8-20) Glucose 105 H (70-100) mg/dL Calcium 9.0 (8.6-10.3) mg/dL Total Bilirubin 0.40 (0.2-1.0) mg/dL AST 19 (13-39) U/L ALT 28 (7-52) U/L Alkaline Phosphatase 64 (34-104) U/L Troponin I 0.00 (<0.04) ng/mL C-React Prot High Sens 2.91 mg/L Total Protein 7.0 (6.4-8.9) g/dL Albumin 4.3 (3.2-5.2) g/dL Globulin 2.7 (2-4) g/dL Albumin/Globulin Ratio 1.6 (1-3) Beta HCG, Quant < 0.60 mIU/mL Result Diagrams: 12/14/17 09:42 12/14/17 09:42 Lab Statement: Any lab studies that have been ordered have been reviewed, and results considered in the medical decision making process. - Radiology chest Xray Interpretation: No Acute Changes Radiology Interpretation Completed By: Radiologist - EKG No standard instances Cardiac Rate: NL EKG Rhythm: Sinus Rhythm EKG Interpretation: normal sinus rhythm Re-Evaluation - Re-Evaluation First Eval Re-Evaluation Time: 11:50 Change: Improved Comment: lungs CTA Disposition - Course Course Of Treatment: 27-year-old female presents with chest pain for the past couple days. She states she has been having cough for the past week. She has history of asthma. She states she has been using an inhaler more frequently. She was placed on Augmentin and prednisone. States her shortness of breath is worse. She denies any fevers. She admits occasional sore throat. She denies any bowel pain. She vomited a couple times after coughing. She denies any headache. She is nonsmoker. She denies any pain or swelling in her calf muscles. She is on control. pain does not change with positional changes. pain is reproducible. She states the pain feels like a burn in the center of her chest. On exam wheezing present. Abdomen soft nontender reproducible chest pain. EKG normal. Labs white blood cell count elevated at 13. Chest x-ray shows no pneumonia. Negative d-dimer and troponin. CRP normal. Explained chest pain likely due to pleurisy or costochondritis so she treat with ibuprofen. Told to continue Augmentin and steroid. Patient understands agrees with plan. - Differential Dx - Cardiopulmonary Differential Diagnoses - Cardiopulmonary: Asthma, Bronchitis, Lower Resp Infection, Pleurisy - Diagnoses Provider Diagnoses: Asthma exacerbation, Bronchitis, Pleurisy Discharge - Sign-Out/Discharge Documenting (check all that apply): Discharge - Discharge Plan Condition: Good Disposition: HOME Patient Education Materials: Acute Bronchitis (ED) Forms: *Work Release Referrals: Fede Saul MD [Primary Care Provider] - Additional Instructions: Continue using inhaler but only use two puffs or treatments every 4 hours continue steroid and antibiotic as prescribed Use humidifier or place warm bowls of water around the room for cough Cough can last up to 4 weeks Follow up with primary care physician in 5 days Take ibuprofen every 6 hours for pain Return to ED if develop any new or worsening symptoms - Billing Disposition and Condition Condition: GOOD Disposition: HOME
[2017-12-14 11:58] VITALS: BP 110/72
== END 2017-12-14 11:57 | disposition home or self-care (01) ==
LOC: ED 09:09
DX: J45.901 Unspecified asthma with (acute) exacerbation (principal); R09.1 Pleurisy; Z32.02 Encounter for pregnancy test, result negative; Z87.440 Personal history of urinary (tract) infections; Z88.6 Allergy status to analgesic agent; Z88.5 Allergy status to narcotic agent
CPT/HCPCS: 36415; 71046; 80053; 84484; 84702; 85025; 85379; 86141; 93005; 94640; 96372; 99282; A9270-GY; J1885; J2930

== ENCOUNTER 2018-01-13 11:01 | Emergency (ER) | payer BC ==
--- OUTSIDE RECORDS SUMMARY | 2018-01-13 11:23 | XMS REPORT ---
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[facility] Cigarette Use Never Smoked Cigarettes ETOH Use [...] Form Strength Qnty SIG Indications Ordering Provider Prednisone 01/02 Active Tablets 50mg 5tabs 1 tablet Fede daily for 5 [place] days , Levofloxacin 01/02 Active Tablets 750mg 5tabs take one Fede daily for 5 [place] days , Albuterol 01/02 Active Nebulizer (5mg/ML) 90uni 1 vial (3 Fede 0.5% ts ml) inhale [place] via , bebulizer as needed Cheratussin ac 01/02 Active Solution 100-10mg/ 473ml take 5-10 Fede 5ML milliliters [place] by mouth , MD every 6 hours as needed for cough Buspirone HCL 12/13 Active Tablets 15mg 60tab 1 tab by F41.9 Javed s mouth twice Darryl daily III, FLOOR HELPER-C Albuterol HFA 12/05 Active 90mcg/Inh 2 puffs every 4 [place] hours as , needed Ventolin HFA 12/05 Active Aerosol 108(90Bas 8gm 1-2 puffs e) four times [place] mcg/Act a day as , needed Zyrtec Allergy 09/13 Active Capsules 10mg 30cap 1 cap once Javed s daily for [place] allergies III, FLOOR HELPER-C Sertraline HCL 08/16 Active Tablets 25mg 30tab 1 by mouth F41.9 Javed s every day [place] III, FLOOR HELPER-C Ibuprofen 03/23 Active Tablets 600mg 120ta take one M54.9 Marion bs tablet by Stephanie, mouth 4 [employer]OR HELPER-C times daily with food as needed for pain Epipen 2-Alan Active Solution 0.3mg/0.3 1unit use as Unknown /0000 Auto-Inject ML s directed for bee-sting allergy and call 911 Yocasta Active IUD 13.5mg jul 2016 Unknown /0000 Breo Ellipta Active Aerosol 100-25mcg inhale one Unknown /0000 /Inh puff by mouth every day Azithromycin 12/12 Hx Tablets 250mg 6tabs take 2 J18.9 tablets by [place] - mouth one , 01/02 time take one daily for 4 days Benzonatate 12/07 Hx Capsules 100mg 45cap 1 tab by Fede s mouth three [place] - times a day , 01/02 Prednisone 12/05 Hx Tablets 50mg 5tabs 1 tablet Fede daily for 5 [place] - MD kaci 12/12 Bactrim DS 11/07 Hx Tablets 800-160mg 14tab 1 by mouth L60.0 s twice a day Shortle, - x 7 days [employer] 12/05 Cefuroxime 09/04 Hx Tablets 500mg 20tab one by Ilda Axetil s mouth twice Serena, - a day M.D., 01/02 R.D. /2017 Astepro 09/04 Hx Solution 0.15% 30uni spray 2 ts sprays into Serena, - each M.D., 01/02 nostril one R.D. /2017 time daily Augmentin 08/30 Hx Tablets 875-125mg 14tab 1 tab by J01.90 s mouth twice Shortle, - a day for 7 [employer] Buspirone HCL 08/16 Hx Tablets 7.5mg 60tab take one F41.9 Javed s tablet by [place] - mouth twice III, 12/13 a day for - anxiety Sertraline HCL 07/19 Hx Tablets 50mg 30tab 1 by mouth F41.9 Javed /2017 s every day [place] - III, 08/16 [employer]LOOR HELPER-C Sertraline HCL 07/05 Hx Tablets 25mg 14tab 1 by mouth F41.9 Javed /2016 s every day [place] - III, 07/19 [employer]LOOR HELPER-C Escitalopram 06/07 Hx Tablets 10mg 30tab 1 by mouth F41.9 Javed Oxalate s every day [place] - III, 07/05 FLOOR HELPER-C Protonix 06/[address] 20mg 30tab 1 by mouth Marion /2015 s every day Stephanie, - FLOOR HELPER-C 05/08 Cyclobenzaprine 03/23 Hx Tablets 5mg 30tab 1-2 by M54.9 Marion HCL /2015 s mouth three Stephanie, - times a day [employer]LOOR HEL[employer]C 05/08 for spasm, may cause drowsiness Pataday 02/22 Hx Solution 0.2% 2.500 instill one H10.13 wnt ml drop in RCarlos A Sol, - each eye FLOOR HELPER-C 05/08 Rhinocort Aqua 02/15 Hx Suspension 32mcg/Act 1unit 1 H10.44 s intranasal [place] - puff daily , 05/08 Cetirizine HCL 02/05 Hx Tablets 10mg 30tab 1 by mouth H10.44 s every day [place] - , 05/08 Loperamide HCL 10/29 Hx Tablets 2mg 30tab 1 tab by A09 Fede s mouth three [place] - times a day , 05/08 as needed Prednisone 01/17 Hx Tablets 20mg 10tab take 2 tabs 726.71 s by mouth Stephanie, - every day x [employer]LOOR HELPER-C 03/23 Hydrocodone-Acet 01/17 Hx Tablets 5-325mg 20twe 1 by mouth Marion aminophen nty q4 - 6 Stephanie, - hours as FLOOR HELPER-C 03/23 Idbenzonatate 10/01 Hx Capsules 200mg 30cap 1 cap po s tid prn Stephanie, - cough [employer]LOOR HELPER-C 03/23 Lidoderm 09/27 Hx Patches 5% 30uni apply to 733.6 ts affected Rocio, - area for 12 M.D. 04/30 hours a day /2017 Prednisone 09/27 Hx Tablets 20mg qs 2 po qd x 4 493.92 days, mariajose Chan, - 1 po qd x 4 M.D. 01/17 days, 1/2 po qd x 2 days Amoxicillin/Clav 09/25 Hx Tablets 875-125mg 20tab 1 tablet 466.0 Marion ulanate s twice a day Stephanie, Potassium - x 10 days FLOOR HELPER-C 10/03 Benzonatate 09/25 Hx Capsules 100mg 45cap 1 by mouth 466.0 s three times Stephanie, - a day as FLOOR HELPER-C 10/01 needed cough Amoxicillin/Clav 05/29 Hx Tablets 875-125mg 20tab 1 tablet 382.9 Marion sierra /2013 s twice a day Stephanie Potassium - x 10 days FLOOR HELPER-C 10/03 Nuvaring 00 Hx Ring 0.12-0.01 3unit insert one Unknown /0000 5mg/24HR s ring into - the vagina, 05/08 monthly Albuterol HFA 00 Hx 90mcg/Inh 1unit 2 Unknown /0000 s inhalation - q4-6 hours 12/05 as needed /2017 shortness of breath, cough, wheeze Immunizations CPT Code Status Date Vaccine Lot # [id number] Given 05/20/2017 Influenza Virus Vaccine, Quadrivalent, 3 Yr > Quad, Preserv Free 17047 Given 02/06/2016 Pneumovax 23 (PPSV23) 65+ years or high risk 2 to [id number] 66 year old 64730 Given 12/30/2014 HPV Vaccine, Gardasil [id number] 29140 Given 05/25/2010 Menactra (meningococcal conjugate vaccine) 41639 Given 05/21/2008 HPV Vaccine, Gardasil 85241 Given 02/01/2008 HPV Vaccine, Gardasil 23943 Given 11/27/2007 Hepatitis A (Ped) 2 Dose Schedule 98505 Given 11/23/2006 Hepatitis A (Ped) 2 Dose Schedule 71581 Given 11/18/2005 Tdap (Adacel) 17971 Given 06/23/1997 MMR (Measles,Mumps,Rubella) 61755 Given 06/15/1997 Hep B Vaccine, Ped/Adol Dose 3 Dose (Engerix or Recombivax) 85507 Given 06/13/1997 DTaP (Daptacel) 18317 Given 06/13/1997 Opv (Poliovirus,Oral) 40717 Given 09/14/1996 Hep B Vaccine, Ped/Adol Dose 3 Dose (Engerix or Recombivax) 84546 Given 06/27/1996 Hep B Vaccine, Ped/Adol Dose 3 Dose (Engerix or Recombivax) 32416 Given 09/23/1993 Opv (Poliovirus,Oral) 38460 Given 09/23/1993 MMR (Measles,Mumps,Rubella) 87616 Given 09/23/1993 DTaP (Daptacel) 47997 Given 09/23/1993 Hib (Hemophilus Influenza B) (Acthib) 77645 Given 1992 DTaP (Daptacel) 79780 Given 1990 Hib (Hemophilus Influenza B) (Acthib) 79146 Given 1990 Hib (Hemophilus Influenza B) (Acthib) 21620 Given 1990 Opv (Poliovirus,Oral) 20501 Given 1990 DTaP (Daptacel) 14656 Given 1992 Opv (Poliovirus,Oral) 85540 Given 1990 DTaP (Daptacel) 91769 Given 1990 Hib (Hemophilus Influenza B) (Acthib) 52997 Given Unknown DTaP (Daptacel) 45684 Refused 08/26/2017 Influenza Virus Vaccine, Quadrivalent, 3 Yr > Quad, Preserv Free Vital Signs Date Vital Result Comment 01/02/2018 BP Systolic 110 mmHg BP Diastolic 84 mmHg Heart Rate 76 /min Body Temperature 98.5 F O2 % BldC Oximetry 97 % 12/13/2017 Weight 128.00 lb Weight in kg's [...] Test Result H/L Range Note Laboratory test 12/14/2017 D Dimer Quantitative < 200 ng/mL Less Than 230 1 finding Laboratory test 12/12/2017 D Dimer Quantitative < 200 ng/mL Less Than 230 2 finding Lactic Acid 1.2 mmol/L 0.5-2.0 3 CBC Auto Diff 12/12/2017 White Blood Count [...] Egfr Non- 91.3 >60 Egfr 117.5 >60 4 Laboratory test finding 12/12/2017 C Reactive Protein 9.81 mg/L High < 5.00 5 HCG < 0.60 mIU/mL 6 Blood Culture SEE RESULT BELOW 7 Laboratory test finding 11/07/2017 Wound Culture/Sensi SEE RESULT BELOW 8 Laboratory test finding 06/29/2016 Urine Culture And SEE RESULT BELOW 9 Sensitivities Urinalysis Profile 06/29/2016 Urine Color Yellow Urine Appearance Clear Urine Specific [place] 1.023 1.010-1.030 Urine pH 6.0 5-9 Urine [...] 5 5-6 Urine Blood NEG Neg Specific [place] 1.02 1.01-1.02 Urine Ketones NEG Neg Urine [...] Color Yellow Urine Appearance Cloudy Urine Specific [place] 1.019 1.010-1.030 Urine pH 6.0 5-9 Urine [...] Reactive Protein 5.79 mg/L High < 5.00 10 HCG < 0.60 mIU/mL 11 TSH (Thyroid Stimulating Horm) 2.08 mcIU/mL 0.34-5.60 Free T3 3.90 pg/mL 2.5-3.9 Free T4 0.68 ng/dL 0.61-1.12 Urine Culture SEE RESULT BELOW 12 Laboratory test 03/10/2015 Gardnerella/Yeast: Vaginal SEE RESULT BELOW 13 finding Dna GC/Chlamydia 03/10/2015 Chlamydia trachomatis Rna Negative Negative Amplified Rna Neisseria gonorrhoeae (GC) Rna Negative Negative 14 Laboratory test finding 03/10/2015 Trichomonas vaginalis Rna Negative Negative 15 Urinalysis Profile 03/10/2015 Urine Color Straw Urine Appearance Clear Urine Specific [place] 1.009 Low 1.010-1.030 Urine pH 5.0 5-9 [...] Egfr Non- 101.3 >60 Egfr 130.3 >60 16 Laboratory test finding 03/10/2015 Lipase 23 U/L 11.0-82.0 C Reactive Protein 4.24 mg/L < 5.00 17 Serum HCG Qualitative Negative Negative Laboratory test finding 03/10/2015 Lactic Acid 0.8 mmol/L 0.5-2.2 Blood Culture SEE RESULT BELOW 18 CBC Auto Diff 12/02/2014 White Blood Count [...] Egfr Non- 110.1 >60 Egfr 141.5 >60 19 Laboratory test finding 12/02/2014 Serum Negative Negative 20 CBC Auto Diff 11/05/2014 White Blood Count [...] Laboratory test finding 11/05/2014 Serum Negative Negative 21 D Dimer Quantitative < 200 ng/mL Less Than 230 22 Comp Metabolic Panel 11/05/2014 Sodium 137 mmol/L [...] Egfr Non- 83.6 >60 Egfr 107.6 >60 23 Laboratory test finding 11/05/2014 Lipase 21 U/L 11.0-82.0 Laboratory test finding 10/03/2014 Troponin I 0.00 ng/mL <0.03 24 C Reactive Protein < 1.00 mg/L < 5.00 25 Serum Negative Negative 26 Creatine Kinase 32 U/L 10-223 CKMB 10/03/2014 CKMB ng/mL 1.0 ng/mL 0.6-6.3 CBC Auto Diff 10/03/2014 White Blood Count [...] 0-2 Nucleated Red Blood Cells % 0 Manual Differential 10/03/2014 Neutrophil % 40 % 38-83 Lymphocytes % 48 % High 25-47 Monocytes % 4 % 0-13 Eosinophils % 2 % 0-6 Reactive Lymph % 6 % 0-6 RBC Morphology Normal Normal Laboratory test finding 10/03/2014 Erythrocyte Sed Rate 12 mm/Hr 0-14 Comp Metabolic Panel 10/03/2014 Sodium 139 mmol/L [...] Egfr Non- 108.2 >60 Egfr 139.1 >60 27 Laboratory test 10/03/2014 D Dimer Quantitative < 200 ng/mL Less Than 230 28 finding Laboratory test 11/10/2013 C Reactive Protein < 1.00 mg/L < 5.00 29 finding Comp Metabolic Panel 11/10/2013 Sodium 140 mmol/L [...] Egfr Non- 111.1 >60 Egfr 142.9 >60 30 CBC Auto Diff 11/10/2013 White Blood Count [...] Quantitative < 200 ng/mL Less Than 230 31 finding Lactic Acid 1.8 mmol/L 0.5-2.2 Serum Negative Negative 32 B Type Natriuretic Peptide 51 pg/mL 33 Comp Metabolic Panel 11/09/2013 Sodium 141 mmol/L [...] Egfr Non- 93.2 >60 Egfr 119.9 >60 34 Laboratory test finding 11/09/2013 Creatine Kinase 76 U/L 10-223 CKMB 11/09/2013 CKMB ng/mL 1.2 ng/mL 0.6-6.3 Laboratory test finding 11/09/2013 Troponin I 0.00 ng/mL <0.03 35 TSH (Thyroid Stimulating Horm) 1.34 IU/mL 0.34-5.60 1 Please note: The following may produce a false positive D Dimer test: - Rheumatoid factor greater than 60 IU/ml - Plasma hemoglobin greater than 0.05 gm/dl - Bilirubin greater than 50 mg/dl - Lipids greater than 1000 mg/dl - FDP greater than 20 ug/ml 2 Please note: The following may produce a false positive D Dimer test: - Rheumatoid factor greater than 60 IU/ml - Plasma hemoglobin greater than 0.05 gm/dl - Bilirubin greater than 50 mg/dl - Lipids greater than 1000 mg/dl - FDP greater than 20 ug/ml 3 [place] Severe Sepsis and Septic Shock Management Bundle Measure requires all lactic acids initially measuring >2.0 mmol/L be repeated. 4 Because ethnic data is not always readily [...] 15-29 5 Kidney failure <15 (or dialysis) 5 Acute inflammation: >10.00 6 <5.0 Negative 5.0 - 25.0 Indeterminate (Repeat testing recommended after 72 hours) >25.0 Positive Perimenopausal women can display HCG levels of up to 20 mIU/mL 7 SEE RESULT BELOW Name: GILLIANWILFRED : [address]: Roshan Rai MD Acct: [id number] Unit: [id number] AGE: 27 Location: ED Re12/12/17 SEX: F Status: DEP ER SPEC: [id number] DEB: 12/12/17-1925 [facility] DR: Roshan Rai MD REQ: [id number] RECD: 12/12/17 STATUS: COMP [facility] DR: Fede Saul MD _ SOURCE: BLOOD,VENO [facility]: ORDERED: Blood Cult Procedure Result Reported Site Aerobic Culture Bottle Final 12/17/171934 ML No Growth Day 5 Anaerobic Culture Bottle Final 12/17/171931 ML No Growth Day 5 * ML - Main Lab . END OF REPORT DEPARTMENT OF PATHOLOGY, [address] [place] [address] Shai Pedraza M.D. Director [facility] # [id number] 8 SEE RESULT BELOW Name: WILFRED FRENCH : [address]: Concepción Duval NP Acct: [id number] Unit: [id number] AGE: 27 Location: [facility] Re11/07/17 SEX: F Status: REG REF SPEC: [id number] DEB: 11/07/[address]: Concepción Duval NP REQ: [id number] RECD: 11/07/17 STATUS: COMP _ SOURCE: TOE SPDESC: ORDERED: Culture Stain COMMENTS: Submitted to [facility] via [employer] system by [id number] at 1351 on 11/08/17. Verbal STREP A S.A. to JACKIE Brown [phone] by [id number] at 1203 on 11/08/17. Results read back accurately. [id number] Specimen Description Left great toe Procedure Result Reported Site Wound/Misc Gram Stain Final 11/08/17- 1054 ML 3+ Epithelial Cells 1+ Neutrophils 4+ Gram Positive Cocci Wound/Misc Culture Final 11/10/17- 09 ML Organism 1 STREP PYOGENES (GRP A) Quantity 3+ Organism 2 STAPHYLOCOCCUS AUREUS Quantity 2+ 1. STREP PYOGENES (GRP A) M.I.C. RX --------- ------ Chloramphenicol 4 S Ampicillin <=0.06 S Penicillin <=0.03 S Cefepime <=0.25 S CONTINUED ON NEXT PAGE DEPARTMENT OF PATHOLOGY, [address] [place] [address] Shai Pedraza M.D. Director [facility] # [id number] Patient: WILFRED FRENCH [id number] (Continued) Specimen: [id number] Collected: 11/07/17 Received: 11/07/17 (Continued) Procedure Result [...] CONTINUED ON NEXT PAGE DEPARTMENT OF PATHOLOGY, [address] [place] [address] Shai Pedraza M.D. Director [facility] # [id number] Patient: WILFRED FRENCH [id number] (Continued) Specimen: [id number] Collected: 11/07/17 Received: 11/07/17 (Continued) Procedure Result Reported Site Wound/Misc Culture Final (continued) * These antibiotics are not available in the [facility] Formulary Contact the Microbiology Department for any additional antibiotic reporting. * ML - Main Lab . END OF REPORT DEPARTMENT OF PATHOLOGY, [address] [address] Shai Pedraza M.D. Director [facility] # [id number] 9 SEE RESULT BELOW Name: WILFRED FRENCH : [address]: Javed Andrews III [employer] Acct: [id number] Unit: [id number] AGE: 26 Location: [facility] Re06/29/16 SEX: F Status: REG REF SPEC: [id number] DEB: 06/29/[address]: Javed Andrews III [employer] REQ: [id number] RECD: 06/29/16 STATUS: COMP _ SOURCE: URINE SPDESC: ORDERED: Urine Culture COMMENTS: [id number] Procedure Result Reported Site Urine Culture Final 06/30/16- 1606 ML No Growth (<1,000 CFU/mL) * ML - MAIN LAB ([facility]) . END OF REPORT * ML=Testing performed at Main Lab DEPARTMENT OF PATHOLOGY, [address] [place] [address] Shai Pedraza M.D. Director [facility] # [id number] 10 Acute inflammation: >10.00 11 <5.0 Negative 5.0 - 25.0 Indeterminate (Repeat testing recommended after 72 hours) >25.0 Positive Perimenopausal women can display HCG levels of up to 20 mIU/mL 12 SEE RESULT BELOW Name: WILFRED FRENCH : [address]: Ely Coronado MD Acct: [id number] Unit: [id number] AGE: 25 Location: ED Re06/14/16 SEX: F Status: DEP ER SPEC: [id number] DEB: 06/14/[address]: Ely Coronado MD REQ: [id number] RECD: 06/14/16 STATUS: SAMRA NINO DR: Marion Sandhu [employer] _ SOURCE: URINE SPDESC: ORDERED: Urine Culture Procedure Result Reported Site Urine Culture Final 06/16/1616 ML No growth of clinically significant organisms * ML - MAIN LAB ([facility]) . END OF REPORT * ML=Testing performed at Main Lab DEPARTMENT OF PATHOLOGY, [address] [place] [address] Shai Pedraza M.D. Director [facility] # [id number] 13 SEE RESULT BELOW Name: WILFRED FRENCH : [address]: Dylon Reyes MD Acct: [id number] Unit: [id number] AGE: 24 Location: ED Re03/10/15 SEX: F Status: DEP ER SPEC: [id number] DEB: 03/10/[address]: Shilpi ULRICH REQ: [id number] RECD: 03/10/15 STATUS: SAMRA NINO DR: Dylon Sandhu [employer] _ SOURCE: VAGINAL SPDESC: ORDERED: Zuri Farias DNA Procedure Result Verified Site Gardnerella/Yeast: Vaginal [...] or failure. * ML - MAIN LAB ([facility]) . END OF REPORT * ML=Testing performed at Main Lab DEPARTMENT OF PATHOLOGY, [address] [place] [address] Shai Pedraza M.D. Director [facility] # [id number] 14 Female urine specimens have been self-validated by [facility] and have been granted conditional assay approval by [facility]. 15 [facility] Specimen Source: cervix GC/Chlamydia Source?: Endocervical Trichomonas Source: Endocervical 16 Because ethnic data is not always [...] 5 Kidney failure <15 (or dialysis) 17 Acute inflammation: >10.00 18 SEE RESULT BELOW Name: WILFRED FRENCH : [address]: Dylon Reyes MD Acct: [id number] Unit: [id number] AGE: 24 Location: ED Re03/10/15 SEX: F Status: DEP ER SPEC: [id number] DEB: 03/10/15-[address]: Shilpi ULRICH REQ: [id number] RECD: 03/10/15 STATUS: SAMRA NINO DR: Dylon Sandhu [employer] _ SOURCE: BLOOD,VENO SPDESC: ORDERED: Blood Cult Procedure Result Verified Site Aerobic Culture Bottle Final 03/15/15- 1718 ML No Growth Day 5 Anaerobic Culture Bottle Final 03/15/15- 1718 ML No Growth Day 5 * ML - MAIN LAB ([facility]) . END OF REPORT * ML=Testing performed at Main Lab DEPARTMENT OF PATHOLOGY, [address] [place] [address] Shai Pedraza M.D. Director [facility] # [id number] 19 Because ethnic data is not always readily [...] 15-29 5 Kidney failure <15 (or dialysis) 20 This test detects intact HCG only and is indicated for the early detection of . 21 This test detects intact HCG only and is indicated for the early detection of . 22 Please note: The following may produce [...] 0.03 ng/mL Not supportive of diagnosis of NE 0.03 - 0.50 ng/mL Indeterminate: suggest serial studies if clinically indicated. Greater than 0.5 ng/mL Consistent with diagnosis of NE 25 Acute inflammation: >10.00 26 This test detects intact HCG only and is indicated for the early detection of . 27 Because ethnic data is not always [...] 5 Kidney failure <15 (or dialysis) 28 Please note: The following may produce a false positive D Dimer test: - Rheumatoid factor greater than 60 IU/ml - Plasma hemoglobin greater than 0.05 gm/dl - Bilirubin greater than 50 mg/dl - Lipids greater than 1000 mg/dl - FDP greater than 20 ug/ml 29 Acute inflammation: >10.00 In accordance with FDA guideline, CRP is now reported in mg/L, previous reporting was in mg/dL. 30 Because ethnic data is not always readily [...] 15-29 5 Kidney failure <15 (or dialysis) 31 Please note: The following may produce a false positive D Dimer test: - Rheumatoid factor greater than 60 IU/ml - Plasma hemoglobin greater than 0.05 gm/dl - Bilirubin greater than 50 mg/dl - Lipids greater than 1000 mg/dl - FDP greater than 20 ug/ml 32 This test detects intact HCG only and is indicated for the early detection of . 33 >100 to <200 pg/mL: likely compensated congestive heart failure (CHF) 200 to 400 pg/mL: likely moderate CHF >400 pg/mL: likely moderate to severe CHF [place] [facility] 34 Because ethnic data is not always readily [...] 15-29 5 Kidney failure <15 (or dialysis) 35 Reference Range and Interpretation: TnI (ng/mL) Interpretation Less Than 0.03 ng/mL Not supportive of diagnosis of NE 0.03 - 0.50 ng/mL Indeterminate: suggest serial studies if clinically indicated. Greater than 0.5 ng/mL Consistent with diagnosis of NE Procedures Date CPT Code Description Status 01/02/2018 03841 Nebulizer Treatment Completed Encounters Type Date Location Provider CPT E/M Dx Office Visit 12/13/2017 4:15p Main [place] [address] Z00.00 F41.9 F33.9 Office Visit 12/12/2017 5:15p [place] [address] J18.9 Office Visit 12/05/2017 4:30p [place] [address] J45.901 Office Visit 11/09/2017 5:00p [place] [address] L60.0 Office Visit 11/07/2017 4:00p [place] [address] L60.0 Office Visit 09/13/2017 4:30p Main Office S[place]IAGO Harrell III 18420 F41.9 F33.9 Office Visit 09/09/2017 4:30p [place] [address] J01.90 Office Visit 08/30/2017 2:15p [place] [address] J01.90 Office Visit 08/26/2017 1:30p Main Office Concepción Duval, [employer] 46924 J06.9 Office Visit 08/16/2017 4:30p Main Office Javed Adnrews III, FLOOR HELPER-C 70129 F41.9 F33.9 Office Visit 07/19/2017 4:30p Main Office Javed Andrews III, FLOOR HELPER-C 06071 F41.9 F33.9 J06.9 Office Visit 07/05/2017 4:30p Main Office Javed Rebollars III, FLOOR HELPER-C 55214 F41.9 F33.9 Office Visit 06/07/2017 4:30p Main Office Javed Rebollars III, FLOOR HELPER-C 48800 F41.9 F33.9 Office Visit 06/29/2016 4:30p Main Office Javed Andrews III, FLOOR HELPER-C 19292 R10.9 Office Visit 06/21/2016 4:30p Main Office Marion Sandhu FLOOR HELPER-C 63786 R13.10 Office Visit 03/23/2016 10:30a Main Office Marion Sandhu FLOOR HELPER-C 62098 M54.9 Office Visit 02/23/2016 3:30p Main Office Cabrera Sol, FLOOR HELPER-C 15967 H10.13 Office Visit 02/16/2016 5:15p [place] [address] H10.44 Office Visit 02/06/2016 8:00a [place] [address] H10.44 J45.998 Z23 Office Visit 10/29/2015 10:00a [place] [address] A09 Office Visit 01/17/2015 3:15p Main Office Marion Sandhu FLOOR HELPER-C 71197 726.71 Office Visit 10/03/2014 2:45p Main Office Ginger Cardona M.D. 47161 786.50 Office Visit 09/27/2014 1:45p Main Office Alexis Chan M.D. 57174 466.0 733.6 493.92 Office Visit 09/25/2014 9:30a Main Office CASSIE Payne-C 54629 466.0 Office Visit 07/29/2014 1:45p Main Office Marion SANTIAGO Sandhu 37581 461.9 Office Visit 05/29/2014 10:30a Main Office Marion SANTIAGO Sandhu 15622 382.9 461.9 Plan of Care Future Appointment(s):06/20/2018 4:30 pm - CASSIE Harrell III-[facility] at Main [facility]nsvx2501/02/2018 - Fede Saul MDJ45.901 Unspecified asthma with (acute) exacerbationComments:She picked up the albuterol refill, but still severely symptomatic. She had a partial response to abx despite a normal chest x-ray. Will try a more intensive antibiotic regimen as this suggests possible bacterial involvement. We will also repeat the steroid course.We discussed alarm symptoms.
[2018-01-13] MEDS ORDERED: predniSONE TAB* 20 MG PO ONE (12:59)
[2018-01-13] MEDS ORDERED: Albuterol/Ipratropium NEB.SOL* Albuterol 2.5 MG/Ipratropium 0.5 MG 3 ML INH ONE ×2 (12:59→15:12)
[2018-01-13 16:58] VITALS: BP 113/70
--- NOTE | 2018-01-13 21:44 | ED ---
Kavin Pedroza Natalie, scribed for Roshan Rai MD on 01/13/18 at 1342 . Respiratory - HPI Summary HPI Summary: The pt is a 27 y/o F presenting to the ED c/o respiratory distress starting a month ago. She has been diagnose with bronchitis, and has been on various antibiotics and steroids (Augmentin, Prednisone, Z-pack) in the last month, to little relief. She has used her rescue inhaler and nebulizer, as prescribed by PCP for asthma, to little relief as well. She has not used her inhaler today, but has used it four times last night, and at least once a day since symptoms began. The pain is rated 4/10 in severity. Pt additionally c/o productive cough with green mucous and sleep disturbance due to coughing fits and being unable to breathe. - History of Current Complaint Chief Complaint: EDShortnessOfBreath Stated Complaint: DIFFICULTY BREATHING Time Seen by Provider: 01/13/18 12:40 Hx Obtained From: Patient Onset/Duration: Gradual Onset, Lasting Weeks - one month, Still Present Initial Severity: Moderate Current Severity: Moderate Pain Intensity: 4 Character: Cough (Productive) Sputum Amount: Large Sputum Color: Green Aggravating Factor(s): Nothing Alleviating Factor(s): Neb. Bronchodilators (Frequency Of Use), Steriods, Antibiotics Associated Signs and Symptoms: SOB - Allergy/Home Medications Allergies/Adverse Reactions: Allergies Allergy/AdvReac Type Severity Reaction Status Date / Time acetaminophen [From Tylenol] Allergy Vomiting Verified 12/14/17 09:26 codeine Allergy Vomiting Verified 12/14/17 09:26 cortisone Allergy Difficulty Verified 12/14/17 09:26 Breathing Home Medications: Home Medications Albuterol 2.5MG/3ML (0.083%)* [Ventolin 2.5 MG/3 ML NEB.KRYSTIN*] 2.5 mg INH Q6H PRN 01/13/18 [History Confirmed 01/13/18] PMH/Surg Hx/FS Hx/Imm Hx Endocrine/Hematology History: Denies: Hx Anticoagulant Therapy, Hx Diabetes, Hx Thyroid Disease Cardiovascular History: Denies: Hx Congestive Heart Failure, Hx Hypertension, Hx Pacemaker/ICD Respiratory History: Reports: 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 Denies: Hx Chronic Obstructive Pulmonary Disease (COPD) GI History: Denies: Hx Ulcer History: Reports: Hx Kidney Infection, Other Problems/Disorders - frequent UTI Denies: Hx Renal Disease - INFECTIONS Musculoskeletal History: Reports: Hx Arthritis, Hx Back Problems - Chronic low back pain, Other Musculoskeletal History - R hip issues, arthoscopy Aug 2015 and residual disc/numb Sensory History: Reports: Hx Contacts or Glasses Denies: Hx Hearing Aid Opthamlomology History: Reports: Hx Contacts or Glasses Neurological History: Denies: Hx Dementia, Hx Seizures Psychiatric History: Denies: Hx Panic Disorder - Surgical History Surgery Procedure, Year, and Place: HIP SURGERY WITH SCREW FOR IT BAND AND LABRAL TEAR - Immunization History Date of Tetanus Vaccine: up to date Infectious Disease History: No Infectious Disease History: Denies: Hx Clostridium Difficile, Hx Hepatitis, Hx Human Immunodeficiency Virus (HIV), Hx of Known/Suspected MRSA, Hx Shingles, Hx Tuberculosis, Hx Known/ Suspected VRE, Hx Known/Suspected VRSA, History Other Infectious Disease, Traveled Outside the [place] in Last 30 Days - Family History Known Family History: Positive: Diabetes, Renal Disease - Social History Alcohol Use: Occasionally Substance Use Type: Reports: None Hx Tobacco Use: No Smoking Status (MU): Never Smoked Tobacco Have You Smoked in the Last Year: No Review of Systems Positive: Other - sleep loss Positive: Shortness Of Breath, Cough - productive All Other Systems Reviewed And Are Negative: Yes Physical Exam - Summary Physical Exam Summary: Appearance: The patient is well-nourished in no acute distress and in no acute pain. Skin: The skin is warm and dry and skin color reflects adequate perfusion. HEENT: The head is normocephalic and atraumatic. The pupils are equal and reactive. The conjunctivae are clear and without drainage. Nares are patent and without drainage. Mouth reveals moist mucous membranes and the throat is without erythema and exudate. The external ears are intact. The ear canals are patent and without drainage. The tympanic membranes are intact. Neck: the neck is supple with full range of motion and non-tender. There are no carotid bruits. There is no neck vein distension. Respiratory: Chest is non-tender. Lungs show diffuse wheezes and breath sounds are decreased. Cardiovascular: Heart is regular rate and rhythm. There is no murmur or rub auscultated. There is no peripheral edema and pulses are symmetrical and equal. Abdomen: The abdomen is soft and non-tender. There are normal bowel sounds heard in all four quadrants and there is no organomegaly palpated. Musculoskeletal: There is no back tenderness noted. Extremities are non-tender with full range of motion. There is good capillary refill. There is no peripheral edema or calf tenderness elicited. Neurological: Patient is alert and oriented to person, place and time. The patient has symmetrical motor strength in all four extremities. Cranial nerves are grossly intact. Deep tendon reflexes are symmetrical and equal in all four extremities. Psychiatric: The patient has an appropriate affect and does not exhibit any anxiety or depression. Triage Information Reviewed: Yes Vital Signs On Initial Exam: Initial Vitals Temp Pulse Resp BP Pulse Ox 99.9 F 89 17 128/79 97 01/13/18 11:07 01/13/18 11:07 01/13/18 11:07 01/13/18 11:07 01/13/18 11:07 Vital Signs Reviewed: Yes Diagnostics - Vital Signs Vital Signs Temp Pulse Resp BP Pulse Ox 01/13/18 13:13 87 12 100 01/13/18 12:48 94 121/76 96 01/13/18 12:47 90 96 01/13/18 11:07 99.9 F 89 17 128/79 97 - Laboratory Lab Statement: Any lab studies that have been ordered have been reviewed, and results considered in the medical decision making process. Re-Evaluation - Re-Evaluation First Eval Re-Evaluation Time: 14:30 Change: Improved Comment: The pt states her breathing has become better after treatment, but she is still coughing. Upon re-examination, I found course upper airways sounds present. Second Eval Re-Evaluation Time: 16:20 Change: Improved Comment: The pt is feeling better after treatment. She is agreeable with being discharged home. Disposition - Course Course Of Treatment: MS. Banks has been fighting alice asthma for weeks. She has had 3 courses of antibiotics and been on steroids a couple times. She was treated with steroids and nebs here and got some relief. Dr. Pretty was contacted. She agreed to follow the patient in her office and I will give her another slow taper. - Diagnoses Provider Diagnoses: Asthma exacerbation - Physician Notifications Discussed Care Of Patient With: Sylvia Pretty Time Discussed With Above Provider: 13:46 Instructed by Provider To: Other - Dr. Pretty advised me to give the patient a Medrol treatment. Discharge - Sign-Out/Discharge Documenting (check all that apply): Discharge/Admit/Transfer - Discharge Plan Condition: Stable Disposition: HOME Patient Education Materials: Asthma (ED) Referrals: Fede Saul MD [Primary Care Provider] - Sylvia Pretty MD [Medical Doctor] - 01/16/18 Additional Instructions: Follow up with Dr. Pretty next week. Please return to the emergency department for any new or worsening symptoms. - Billing Disposition and Condition Condition: STABLE Disposition: HOME The documentation as recorded by the Kavin bah Natalie accurately reflects the service I personally performed and the decisions made by , Roshan Rai MD.
== END 2018-01-13 17:01 | disposition home or self-care (01) ==
LOC: ED 11:01
DX: J45.901 Unspecified asthma with (acute) exacerbation (principal); Z87.440 Personal history of urinary (tract) infections; Z88.6 Allergy status to analgesic agent; Z88.5 Allergy status to narcotic agent; Z88.8 Allergy status to other drugs, medicaments and biological substances
CPT/HCPCS: 99283; A9270-GY; J7512

== ENCOUNTER 2018-01-24 06:35 | Emergency (ER) | payer BC ==
[2018-01-24] MEDS ORDERED: Albuterol/Ipratropium NEB.SOL* Albuterol 2.5 MG/Ipratropium 0.5 MG 3 ML INH ONE ×2 (06:42→11:18)
[2018-01-24] MEDS ORDERED: NS 0.9% 1000 ML* 1,000 ML IV ONE (06:43)
[2018-01-24] MEDS ORDERED: methylPREDNISolone 125 MG* 2 ML VIAL IV ONE (06:47)
--- NOTE | 2018-01-24 07:27 | ED ---
Shortness of Breath - HPI Summary HPI Summary: Patient is a 27-year-old female presents to the ED for the fourth time in a month and a half with chief complaint of difficulty breathing. History of asthma. She states she has been diagnosed with bronchitis and asthma exacerbation. She has tried antibiotics and has been using her DuoNeb was at home without relief. Symptoms present intermittently over 1 month, worsening over the past 2 days. She states she has been unable to sleep due to her SOB. She endorses a mild cough, but denies any mucus production. Denies any fevers, sweats, chills. Symptoms are aggravated with ambulation, better only slightly with rest. On arrival she appears to be in a mild acute respiratory distress the vital signs are stable including O2 sat at 95%. - History of Current Complaint Chief Complaint: EDShortnessOfBreath Time Seen by Provider: 01/24/18 06:41 Hx Obtained From: Patient Onset/Duration: Gradual Onset Timing: Constant Current Severity: Severe Dyspnea At: Rest Aggrevating Factors: Deep Breaths Alleviating Factors: Nothing - Nebulizers help briefly Associated Signs & Symptoms: Cough (Nonproductive) - Risk Factors Pulmonary Embolism: Negative Cardiac: Negative Pseudomonas: Negative Tuberculosis: Negative - Allergy/Home Medications Allergies/Adverse Reactions: Allergies Allergy/AdvReac Type Severity Reaction Status Date / Time acetaminophen [From Tylenol] Allergy Vomiting Verified 01/24/18 06:48 codeine Allergy Vomiting Verified 01/24/18 06:48 cortisone Allergy Difficulty Verified 01/24/18 06:48 Breathing PMH/Surg Hx/FS Hx/Imm Hx Previously Healthy: Yes Endocrine/Hematology History: Denies: Hx Anticoagulant Therapy, Hx Diabetes, Hx Thyroid Disease Cardiovascular History: Denies: Hx Congestive Heart Failure, Hx Hypertension, Hx Pacemaker/ICD Respiratory History: Reports: 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 Denies: Hx Chronic Obstructive Pulmonary Disease (COPD) GI History: Denies: Hx Ulcer History: Reports: Hx Kidney Infection, Other Problems/Disorders - frequent UTI Denies: Hx Renal Disease - INFECTIONS Musculoskeletal History: Reports: Hx Arthritis, Hx Back Problems - Chronic low back pain, Other Musculoskeletal History - R hip issues, arthoscopy Aug 2015 and residual disc/numb Sensory History: Reports: Hx Contacts or Glasses Denies: Hx Hearing Aid Opthamlomology History: Reports: Hx Contacts or Glasses Neurological History: Denies: Hx Dementia, Hx Seizures Psychiatric History: Denies: Hx Panic Disorder - Surgical History Surgery Procedure, Year, and Place: HIP SURGERY WITH SCREW FOR IT BAND AND LABRAL TEAR - Immunization History Date of Tetanus Vaccine: up to date Hx Pertussis Vaccination: No Immunizations Up to Date: Unable to Obtain/Confirm Infectious Disease History: No Infectious Disease History: Denies: Hx Clostridium Difficile, Hx Hepatitis, Hx Human Immunodeficiency Virus (HIV), Hx of Known/Suspected MRSA, Hx Shingles, Hx Tuberculosis, Hx Known/ Suspected VRE, Hx Known/Suspected VRSA, History Other Infectious Disease, Traveled Outside the [place] in Last 30 Days - Family History Known Family History: Positive: None - reviewed & noncontributory, Diabetes, Renal Disease - Social History Occupation: Employed Full-time Lives: With Family Alcohol Use: Occasionally Hx Substance Use: No Substance Use Type: Reports: None Hx Tobacco Use: No Smoking Status (MU): Never Smoked Tobacco Have You Smoked in the Last Year: No Review of Systems Constitutional: Negative Negative: Fever, Chills, Fatigue Negative: Palpitations, Chest Pain Positive: Shortness Of Breath - wheezing, Cough Negative: Abdominal Pain, Vomiting Genitourinary: Negative Positive: no symptoms reported, see HPI Musculoskeletal: Negative Neurological: Negative Psychological: Normal All Other Systems Reviewed And Are Negative: Yes Physical Exam Triage Information Reviewed: Yes Vital Signs On Initial Exam: Initial Vitals Temp Pulse Resp BP Pulse Ox 97.5 F 98 30 131/87 94 01/24/18 06:36 01/24/18 06:36 01/24/18 06:36 01/24/18 06:36 01/24/18 06:36 Vital Signs Reviewed: Yes Appearance: Positive: Well-Appearing, No Pain Distress, Well-Nourished Skin: Positive: Warm, Skin Color Reflects Adequate Perfusion Head/Face: Positive: Normal Head/Face Inspection Eyes: Positive: EOMI Neck: Positive: Supple, No Lymphadenopathy Respiratory/Lung Sounds: Positive: Breath Sounds Present, Wheezes - throughout. Negative: Decreased Breath Sounds, Rales, Rhonchi, Stridor, Tracheal Deviation , Unable to speak in full sentences Cardiovascular: Positive: Pulses are Symmetrical in both Upper and Lower Extremities Musculoskeletal: Positive: Normal, Strength/ROM Intact Neurological: Positive: Speech Normal Psychiatric: Positive: Affect/Mood Appropriate AVPU Assessment: Alert Diagnostics - Vital Signs Vital Signs Temp Pulse Resp BP Pulse Ox 01/24/18 07:11 91 94 01/24/18 06:49 82 18 99 01/24/18 06:44 96 128/89 95 01/24/18 06:36 97.5 F 98 30 131/87 94 - Laboratory Result Diagrams: 01/24/18 07:18 01/24/18 07:18 Lab Statement: Any lab studies that have been ordered have been reviewed, and results considered in the medical decision making process. Course/Dx - Course Course Of Treatment: Patient arrives to the ED with the concern over SOB, wheezing throughout the past 2 days without improvements from her at home nebulizer treatments. She has been seen 4 times over the past month for same and given steroids and antibiotics with improvement, however states it continues after she ends the medications. She was recently started on Breo. She has an appointment with Dr. Pretty in February but states she cannot wait that long for more treatment. Labs obtained. DuoNeb given immediately on arrival. 125mg methylprednisolone given IV.Sats noted to be at 95%. Dr. Pretty called who agrees to come see patient in the ED. She recommends a long taper dose of prednisone of 60mg daily for 1 week and tapering by 10mg per week until gone. She will follow up with her in 3 weeks time. She is given a second duoneb with good effect. She continues to have wheezing, although this is much improved prior to discharge. - Diagnoses Differential Diagnosis/HQI/PQRI: Positive: Asthma, Bronchitis Provider Diagnoses: Asthma exacerbation attacks Discharge - Sign-Out/Discharge Documenting (check all that apply): Discharge/Admit/Transfer - Discharge Plan Condition: Stable Disposition: HOME Prescriptions: predniSONE TAB* [Deltasone TAB*] 10 mg PO DAILY #91 tab predniSONE TAB* [Deltasone TAB*] 5 mg PO DAILY #21 tab Patient Education Materials: Asthma (ED) Forms: *Work Release Referrals: Fede Saul MD [Primary Care Provider] - Additional Instructions: Please take a claritin-24 daily Prednisone taper is as follows: Week 1: 40mg daily x 7 days Week 2: 35mg daily x 7 days Week 3: 30mg daily x 7 days Week 4: 25mg daily x 7 days Week 5: 20mg daily x 7 days Week 6: 15mg daily x 7 days You will likely need a refill of steroids prior to week 6 for continuation. - Billing Disposition and Condition Condition: STABLE Disposition: HOME
[2018-01-24 07:30] LABS: Hematocrit 41 % (35-47); Hemoglobin 13.6 g/dl (12.0-16.0); Mean Corpuscular HGB Conc 34 g/dl (31-36); Mean Corpuscular Hemoglobin 31 pg (27-31); Mean Corpuscular Volume 91 fL (80-97); Platelet Count 230 10^3/ul (150-450); Red Blood Count 4.44 10^6/ul (4.0-5.4); Red Cell Distribution Width 13 % (10.5-15); White Blood Count 12.5 10^3/ul (3.5-10.8)
[2018-01-24 07:55] LABS: ABS Basophils 0.1 10^3/ul (0-0.2); ABS Eosinophils 3.4 10^3/ul (0-0.6); ABS Lymphocytes 3.3 10^3/ul (1.0-4.8); ABS Monocytes 0.7 10^3/ul (0-0.8); ABS Neutrophils 4.9 10^3/ul (1.5-7.7); ABS Nucleated RBC 0 10^3/ul; Eosinophil % 27.3 % (0-6); Lymphocyte % 26.6 % (25-47); Nucleated Red Blood Cells % 0.1
--- NOTE | 2018-01-24 07:58 | RAD ---
INDICATION: Short of breath COMPARISON: December 14, 2017 TECHNIQUE: PA and lateral dual-energy views were obtained. FINDINGS: Bones/Soft Tissues: There are no acute bony findings. Cardiomediastinal: The cardiomediastinal silhouette is normal. Lungs: There are no infiltrates. Pleura: There are no pleural effusions. Other: None IMPRESSION: NO ACTIVE DISEASE.
[2018-01-24 12:50] VITALS: BP 126/77
--- NOTE | 2018-01-24 21:55 | CONS ---
PULMONARY CONSULTATION REPORT: DATE OF CONSULT: 01/24/18 - EMERGENCY DEPT CONSULTATION REQUESTED BY: MOJGAN Manriquez REASON FOR CONSULTATION: Evaluation of recurrent asthma exacerbations. HISTORY OF PRESENT ILLNESS: The patient is a 27-year-old female with history of childhood asthma, has been under good control until recently. The patient reports that during Easter time, she had URI symptoms followed with persistent asthma symptoms. She was treated with 3 rounds of antibiotics and prednisone with mild improvement. The patient presents to the ED for evaluation of worsening shortness of breath, chest tightness and cough. The patient reports cough productive of yellow to green phlegm. The patient reports that she has been needing to use her DuoNebs and rescue inhaler 6 to 7 times a day. The patient also reports nocturnal symptoms. She is having trouble sleeping at night due to significant coughing. The patient reports that she has moved to a new place in November. Her asthma symptoms have been persistent and active since that time. The patient reports developing allergy symptoms this year. The patient reports allergy to DUST. The patient reports snoring at night and disruptive sleep and daytime fatigue. The patient denies significant GERD symptoms. History of asthma and sleep apnea in the family. The patient also has allergy to animal hair and dander. She is currently not keeping any pets with her. The patient was noted to be in significant distress in the ED. She was noted to be tachypneic and tachycardic. She has received a few breathing treatments already. She was also given Solu-Medrol. I have personally seen and examined the patient at bedside. The patient reports slight improvement in her symptoms since she came in. Still continues to have significant tightness with deep inspiration. The patient has not been coughing as much during the interview. She has been started on O2 supplementation at 2 L/minute with O2 sats anywhere between 95% to 97%. She was noted to be having O2 sats around 88 % to 89% prior to oxygen was initiated. The patient reports history of screw and band placement for her labral tear, lateral tear in her hip in the past. PAST MEDICAL HISTORY: Also significant for childhood asthma. ALLERGIES: ENVIRONMENTAL allergies, ACETAMINOPHEN, CODEINE, CORTISONE. FAMILY HISTORY: History of sleep apnea, diabetes, asthma, and renal disease. 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 Denies smoking, alcohol, or drug abuse. REVIEW OF SYSTEMS: All 14 systems were reviewed. Negative for fevers, chills, fatigue, palpitations, abdominal pain, vomiting, urinary complaints, joint pains currently, neurological complaints. PHYSICAL EXAM: The patient in bed, in no apparent distress. Vital Signs: Temperature 97.5, heart rate 80 beats per minute, respiratory rate 16 per minute , blood pressure 116/74, O2 sat 94% to 97% on 2 L. HEENT: Pupils equal, reactive to light, mucous membranes moist. No conjunctival erythema. Lungs: Diminished air entry bilaterally, inspiratory and expiratory rhonchi present. Cardiovascular: S1, S2 present, regular. No murmurs, gallops, or rubs. Abdomen : Soft, nontender, nondistended. Bowel sounds present. Extremities: Normal range of motion. Neuro: No focal deficits. Skin: No rash or bruits. Lymphatic: No palpable cervical or supraclavicular adenopathy. DIAGNOSTIC STUDIES/LAB DATA: WBC count 12.5, hemoglobin 13.6, hematocrit 41, platelet count 230,000. D-dimer less than 200. Sodium 140, potassium 4.1, chloride 107, bicarb 27, BUN 9, creatinine 0.78, lactic acid 1.9. CRP was elevated when tested in December 2017, normal currently. LFTs within normal limits. Chest x-ray was personally reviewed by me. No evidence of significant hyperinflation, no significant airspace opacities. The patient had blood cultures in December 2017, which were negative. IMPRESSION AND RECOMMENDATIONS: 27-year-old female with childhood asthma, ENVIRONMENTAL allergies with recurrent asthma symptoms since viral upper respiratory infection symptoms. 1. Reactive airways disease after viral upper respiratory infection with worsening of asthma symptoms. 2. Allergen-induced exacerbation. 3. The patient reports new onset allergies this year, moved to new area when all her symptoms started, suspect irritants in that area. The patient also has DUST allergy, has been cleaning her new place with lot of chemicals, which might have been the trigger. Discussed importance of avoiding the triggers. Also advised the patient to stay away from that place for a few days to see her symptoms would improve. She will need longer prednisone taper. Will start off with 40 mg and would taper by 5 mg each week. Continue with bronchodilators. 4. The patient is on long-acting combination beta agonist. 5. Association of gastroesophageal reflux disease, allergies with asthma was discussed. 6. The patient would benefit from free flow monitoring, incentive spirometer usage. 7. Instructions on usage were given and she was educated on usage. 8. Will follow up in 2 weeks in pulmonary clinic. Thank you for allowing me to participate in the care of your patient. Above recommendations were discussed with MOJGAN Manriquez. [id number]/[facility] #: [id number] [place]
== END 2018-01-24 12:50 | disposition home or self-care (01) ==
LOC: ED 06:35
DX: J45.901 Unspecified asthma with (acute) exacerbation (principal); R05 Cough; R06.02 Shortness of breath
CPT/HCPCS: 36415; 71046; 80053; 83605; 85025; 85652; 86141; 96374; 99283; A9270-GY; J2930